=== PATIENT | female | born 1940 | race Caucasian/White ===

== ENCOUNTER 2019-04-24 11:48 | Outpatient (CLI) | payer MEDICARE, SELFPAY ==
[2019-04-24 12:23] LABS: Hemoglobin 11.5 g/dL (12.0-15.0); Mean Corpuscular HGB Conc 32.9 g/dl (32-36); Mean Corpuscular Hemoglobin 31.5 pg (26-34); Mean Corpuscular Volume 95.9 fl (80-100); Mean Platelet Volume 8.7 fl (7.4-10.4); Platelet Count Result 244 k/mm3 (150-375); Red Blood Count 3.65 M/mm3 (4.2-5.4); Red Cell Distribution Width 13.8 % (11.5-14.5); White Blood Count 9.2 K/mm3 (4.5-10.0)
[2019-04-24 12:40] LABS: Alanine Aminotransferase 19 U/L (4-35); Albumin Level 4.2 g/dL (3.5-5.1); Alkaline Phosphatase 94 U/L (38-126); Aspartate Amino Transferase 26 U/L (14-36); Bilirubin,Total 0.3 mg/dL (0.2-1.3); Estimated Glomerular Filt Rate > 60
== END 2019-04-24 11:49 | disposition home or self-care (01) ==
PROVIDERS: PCP Emergency Medicine
DX: M05.79 Rheumatoid arthritis with rheumatoid factor of multiple sites without organ or systems involvement (principal); M05.9 Rheumatoid arthritis with rheumatoid factor, unspecified; M25.569 Pain in unspecified knee; Z79.899 Other long term (current) drug therapy; L65.8 Other specified nonscarring hair loss; M81.0 Age-related osteoporosis without current pathological fracture
CPT/HCPCS: 36415; 80076; 82565; 85027

== ENCOUNTER 2019-09-14 10:33 | Outpatient (CLI) | payer MEDICARE, SELFPAY ==
[2019-09-14 10:54] LABS: Hematocrit 34.2 % (37.0-47.0); Hemoglobin 11.4 g/dL (12.0-15.0); Mean Corpuscular HGB Conc 33.3 g/dl (32-36); Mean Corpuscular Hemoglobin 31.4 pg (26-34); Mean Corpuscular Volume 94.2 fl (80-100); Mean Platelet Volume 8.4 fl (7.4-10.4); Platelet Count Result 236 k/mm3 (150-375); Red Blood Count 3.63 M/mm3 (4.2-5.4); Red Cell Distribution Width 14.3 % (11.5-14.5); White Blood Count 7.8 K/mm3 (4.5-10.0)
[2019-09-14 11:06] LABS: Alanine Aminotransferase 16 U/L (4-35); Alkaline Phosphatase 97 U/L (38-126); Aspartate Amino Transferase 22 U/L (14-36); Bilirubin,Total 0.4 mg/dL (0.2-1.3); Estimated Glomerular Filt Rate 60
== END 2019-09-14 10:34 | disposition home or self-care (01) ==
PROVIDERS: PCP Emergency Medicine
DX: M05.79 Rheumatoid arthritis with rheumatoid factor of multiple sites without organ or systems involvement (principal); M05.9 Rheumatoid arthritis with rheumatoid factor, unspecified; M25.569 Pain in unspecified knee; Z79.899 Other long term (current) drug therapy; L65.8 Other specified nonscarring hair loss; M81.0 Age-related osteoporosis without current pathological fracture
CPT/HCPCS: 36415; 80076; 82565; 85027

== ENCOUNTER → 2020-01-28 12:15 | Outpatient (CLI) | payer MEDICARE, SELFPAY ==
--- NOTE | ~2020-01-28 | XR_ITS ---
EXAMINATION: XR foot LT 2V EXAM DATE: 01/28/2020 13:05 INDICATION: Pain in left foot . TECHNIQUE: Frontal and lateral projections of the left foot. There is no prior study for comparison . FINDINGS: Bones are osteopenic. Please note that osteopenia limits sensitivity for detecting fractu res by radiographs. There are no acute fractures or dislocations identified. There is no subcutaneou s gas. There are arterial calcifications, arteriosclerosis. There are no radiopaque foreign bodies . Joint spaces are maintained. There are no bony erosions identified. IMPRESSION: Osteopenia. No acute findings. Reviewed, dictated and finalized at location B. MER SORTER
== END ==
PROVIDERS: Visit Provider Nurse Practitioner Family
DX: M85.872 Other specified disorders of bone density and structure, left ankle and foot (principal)
CPT/HCPCS: 73620

== ENCOUNTER 2020-04-06 10:34 | Outpatient (CLI) | payer MEDICARE, SELFPAY ==
[2020-04-06 11:53] LABS: Alanine Aminotransferase 13 U/L (4-35); Albumin Level 3.8 g/dL (3.5-5.1); Alkaline Phosphatase 96 U/L (38-126); Anion Gap 7 mmol/L (8-16); Aspartate Amino Transferase 24 U/L (14-36); Bilirubin,Total 0.6 mg/dL (0.2-1.3); Blood Urea Nitrogen 12 mg/dL (7-17); Carbon Dioxide 29 mmol/L (22-30); Chloride 99 mmol/L (98-107); Cholesterol 175 mg/dL (0-200); Estimated Glomerular Filt Rate > 60; Glucose 92 mg/dL (65-105); HDL Direct 52 mg/dL; Potassium 4.1 mmol/L (3.4-5.0); Sodium 135 mmol/L (137-145); Triglycerides 113 mg/dL (<150)
[2020-04-06 12:04] LABS: LDL Cholesterol Direct 85 mg/dL
[2020-04-09 14:05] LABS: Vitamin D 1,25 (OH)2 Total 55 pg/mL (18-72); Vitamin D2 1,25 (OH)2 <8 pg/mL; Vitamin D3 1,25 (OH)2 55 pg/mL
== END 2020-04-06 10:35 | disposition home or self-care (01) ==
PROVIDERS: PCP Emergency Medicine; Visit Provider Emergency Medicine
DX: E78.5 Hyperlipidemia, unspecified (principal); E55.9 Vitamin D deficiency, unspecified
CPT/HCPCS: 36415; 80053; 80061; 82652

== ENCOUNTER 2020-07-05 11:08 | Outpatient (CLI) | payer MEDICARE, SELFPAY ==
[2020-07-05 12:18] LABS: Alanine Aminotransferase 11 U/L (4-35); Alkaline Phosphatase 97 U/L (38-126); Anion Gap 2 mmol/L (8-16); Aspartate Amino Transferase 22 U/L (14-36); Bilirubin,Total 0.4 mg/dL (0.2-1.3); Blood Urea Nitrogen 13 mg/dL (7-17); Calcium 9.8 mg/dL (8.4-10.2); Carbon Dioxide 31 mmol/L (22-30); Chloride 100 mmol/L (98-107); Cholesterol 198 mg/dL (0-200); Estimated Glomerular Filt Rate > 60; Glucose 90 mg/dL (65-105); HDL Direct 62 mg/dL; Sodium 133 mmol/L (137-145); Triglycerides 97 mg/dL (<150)
[2020-07-05 12:29] LABS: LDL Cholesterol Direct 94 mg/dL
[2020-07-08 22:29] LABS: Vitamin D 1,25 (OH)2 Total 36 pg/mL (18-72); Vitamin D2 1,25 (OH)2 <8 pg/mL; Vitamin D3 1,25 (OH)2 36 pg/mL
== END 2020-07-05 11:09 | disposition home or self-care (01) ==
PROVIDERS: PCP Emergency Medicine; Visit Provider Emergency Medicine
DX: E55.9 Vitamin D deficiency, unspecified (principal); E78.5 Hyperlipidemia, unspecified
CPT/HCPCS: 36415; 80053; 80061; 82652

== ENCOUNTER 2020-12-19 13:14 | Inpatient (IN) | payer MEDICARE, SELFPAY ==
[2020-12-19] VITALS (42 sets, daily range): BP systolic 114–146; BP diastolic 70–101; PULSE 93–136; RESP 9–31; TEMP 36.3–36.6; O2SAT 95–97
--- NOTE | ~2020-12-19 | XR_ITS ---
EXAMINATION: XR chest 2V EXAM DATE: 12/19/2020 14:25 INDICATION: Leg swelling. TECHNIQUE: Frontal and lateral projections of the chest obtained and reviewed. Comparison is made to prior examination from 07/14/2015. FINDINGS: There is moderate cardiomegaly. There are small to moderate bilateral subpulmonic pleural effusions with adjacent atelectasis. There is indistinct reticulation with a bibasal predominance whi ch may indicate pulmonary edema. No pneumothorax or confluent consolidation suspected. There are bony degenerative changes. Thoracolumbar vertebral plasties and multiple thoracic compression fractures, probably old. IMPRESSION: 1. Findings consistent with CHF exacerbation. Reviewed, dictated and finalized at location A.
--- NOTE | 2020-12-19 14:06 | ECG_ITS ---
Measurements Intervals [place] Rate: 119 P: [place]: 0 QRS: -46 QRSD: 114 T: 135 QT: 296 QTc: 417 Interpretive Statements ATRIAL FIBRILLATION WITH RAPID VENTRICULAR RESPONSE LEFT ANTERIOR FASCICULAR BLOCK ST-T WAVE ABNORMALITY IN HIGH LATERAL LEADS- CONSIDER ISCHEMIA BASELINE ARTIFACT- I, AVR, AVL, V6 ABNORMAL ECG Electronically Signed On 12-19-2020 14:21:37 CDT by Tello Harris D.O.
[2020-12-19 14:39] LABS: Anion Gap 9 mmol/L (8-16); Blood Urea Nitrogen 13 mg/dL (7-17); Calcium 9.3 mg/dL (8.4-10.2); Carbon Dioxide 23 mmol/L (22-30); Chloride 93 mmol/L (98-107); Estimated CRCL calculation 46 ml/min; Estimated Glomerular Filt Rate > 60; Glucose 112 mg/dL (65-110); Potassium 4.6 mmol/L (3.4-5.0); Sodium 125 mmol/L (137-145)
[2020-12-19 14:45] LABS: Basophils Percent Auto 0.3 % (0.2-1.2); Eosinophils Absolute Auto 0.1 K/mm3 (0-0.3); Eosinophils Percent Auto 0.6 % (0-4.4); Hematocrit 30.8 % (37.0-47.0); Hemoglobin 10.4 g/dL (12.0-15.0); Immature Granulocyte Absolute 0.06 K/mm3 (0.00-0.031); Immature Granulocyte Percent A 0.6 % (0-0.5); Lymphocytes Absolute Auto 0.66 K/mm3 (0.9-3.2); Lymphocytes Percent Auto 6.9 % (18.3-44.2); Mean Corpuscular HGB Conc 33.8 g/dl (32-36); Mean Corpuscular Hemoglobin 30.5 pg (26-34); Mean Corpuscular Volume 90.3 fl (80-100); Mean Platelet Volume 8.8 fl (7.4-10.4); Monocytes Absolute Auto 0.7 K/mm3 (0.1-0.6); Monocytes Percent Auto 7.2 % (2.6-8.5); Neutrophils Percent Auto 84.4 % (45.5-73.1); Platelet Count Result 273 k/mm3 (150-375); Red Blood Count 3.41 M/mm3 (4.2-5.4); White Blood Count 9.5 K/mm3 (4.5-10.0)
[2020-12-19 14:51] LABS: NT Pro B Type Natriuretic Pept 3990 pg/mL (5-100); Troponin I 0.013 ng/mL (0.000-0.034)
[2020-12-19 14:54] LABS: Prothrombin Time 13.5 Seconds (11.1-14.7)
[2020-12-19 14:55] LABS: Partial Thromboplastin Time 33.2 SECONDS (22.3-36.8)
--- NOTE | 2020-12-19 15:54 | PC.NURSE ---
Erica, daughter, update on patient per phone.
--- NOTE | 2020-12-19 16:03 | ED.GENADULT ---
HPI - General Adult General Chief complaint: Extremity Injury, Lower Stated complaint: fluid coming out of legs Time Seen by Provider: 12/19/20 16:02 Source: patient Mode of arrival: ambulatory Limitations: no limitations History of Present Illness HPI narrative: Patient is here to be evaluated for swelling of her feet with some oozing. She states this is been happening for several days now. She has no other complaints. Onset (ago): day(s) Related Data Home Medications Medication Instructions Recorded Confirmed metoprolol succinate 25 mg 25 mg PO DAILY 12/25/19 04/12/20 tablet,extended release 24 hr naloxone 4 mg/actuation nasal spray 4 mg INTRANASAL Q2M 10/21/20 oxycodone-acetaminophen 10 mg-325 1 tablet PO Q8H PRN 10/21/20 mg tablet Allergies Allergy/AdvReac Type Severity Reaction Status Date / Time Penicillins Allergy Unknown Unknown Verified 12/19/20 15:22 Review of Systems Review of Systems: All systems reviewed & are unremarkable except as noted in HPI and below [facility] Past Medical History Medical History (Updated 12/19/20 @ 20:02 by Kym Castillo PA-C) Afib HTN (hypertension) Osteoporosis Rheumatoid arteritis Social History Social History Smoking status: Never smoker Alcohol intake: never Exam Const: General: no acute distress and alert Orientation/consciousness: patient oriented x3 HENMT: Head: normal to inspection Eyes: Pupils: Equal, round and reactive pupils present Resp: Effort & Inspection: normal respiratory effort Auscultation: rales bilateral at the base Cardio: Rate: tachycardic Rhythm: abnormal rhythm irregularly irregular GI: GI Palp: Yes Soft to palpation : General: Yes no CVA tenderness Skin: General skin exam: normal color Neuro: General: patient oriented x3 and moves all extremities Extrem: General: edema (feet, 1+) bilateral Psych: Mental Status: mental status grossly normal Course Course Emergency Course: EKG shows AF w/RVR. Review of medical record shows the patient had a similar episode in July after suffering a pelvic fracture. Required cardioversion. The patient doesn't recall that episode. Discussed with Dr. Dye. will give Diltiazem bolus, lasix and lovenox. Call out to patients germination worker, Dr. Jensen. Will admit for conversion and observation. Vital Signs Vital signs: Vital Signs Temperature 36.3 C L 12/19/20 14:06 Pulse Rate 132 H 12/19/20 14:06 Respiratory Rate 18 12/19/20 14:06 Blood Pressure 141/94 H 12/19/20 14:06 Pulse Oximetry 97 12/19/20 14:06 Temperature 36.3 C L 12/19/20 14:06 Pulse Rate 100 12/19/20 19:46 Respiratory Rate 20 12/19/20 19:46 Blood Pressure 114/70 12/19/20 19:45 Pulse Oximetry 95 12/19/20 19:46 Medical Decision Making Vital Signs Vital Signs: Vital Signs Temperature 36.3 C L 12/19/20 14:06 Pulse Rate 132 H 12/19/20 14:06 Respiratory Rate 18 12/19/20 14:06 Blood Pressure 141/94 H 12/19/20 14:06 Pulse Oximetry 97 12/19/20 14:06 Temperature 36.3 C L 12/19/20 14:06 Pulse Rate 100 12/19/20 19:46 Respiratory Rate 20 12/19/20 19:46 Blood Pressure 114/70 12/19/20 19:45 Pulse Oximetry 95 12/19/20 19:46 Lab Data Result diagrams: 12/19/20 14:13 12/19/20 14:13 Labs: Lab Results 12/19/20 12/19/20 12/19/20 Range/Units 14:13 14:13 14:13 WBC 9.5 (4.5-10.0) K/mm3 RBC 3.41 L (4.2-5.4) M/mm3 Hgb 10.4 L (12.0-15.0) g/dL Hct 30.8 L (37.0-47.0) % MCV 90.3 (80-100) fl MCH 30.5 (26-34) pg MCHC 33.8 (32-36) g/dl RDW 15.0 H (11.5-14.5) % Plt Count 273 (150-375) k/mm3 MPV 8.8 (7.4-10.4) fl Immature Gran % (Auto) 0.6 H (0-0.5) % Neut % (Auto) 84.4 H (45.5-73.1) % Lymph % (Auto) 6.9 L (18.3-44.2) % [place] % (Auto) 7.2 (2.6-8.5) % Eos % (Auto) 0.6 (0-4.4) % Baso % (Auto) 0.3 (0.2-1.
[2020-12-19] MEDS: ENOXAPARIN 80 MG/0.8 ML SYRINGE 70 MG SUB-Q (17:52)
[2020-12-19] MEDS: FUROSEMIDE INJ 40 MG/4 ML VIAL IV PUSH (17:53)
[2020-12-19] MEDS: oxyCODONE/ACETAMINOPHEN (*CRX) 5-325 MG TABLET 1 TABLET PO (18:03)
--- NOTE | 2020-12-19 18:09 | PC.NURSE ---
No need for cardizem push per GRANITE CUTTER. Starting drip per protocol at this time.
--- NOTE | 2020-12-19 20:17 | PM.IMHP ---
H&P: HPI History of Present Illness Date/Time: 12/19/20 20:17 Chief Complaint: Leg swelling Narrative: 80-year-old female with past medical history of moderate pulmonary hypertension, mitral valve prolapse, paroxysmal atrial fibrillation and rheumatoid arthritis with chronic pain syndrome who presented to the ER via private vehicle due to lower extremity swelling. Source of information is past medical records and patient report. Patient is only a poor to fair historian. The patient reports that she has been having bilateral lower extremity swelling with some weeping from 1 of her lower extremities. She denies any chest pain or shortness of breath. She has not had any cough or congestion. In the ER she was found to be in AFib RVR and had actually denied having history of AFib. However review of records demonstrated patient had AFib far back as 2015. During her prior hospitalizations she had also been asymptomatic with her AFib. She follows with Dr. Jensen as outpatient. She denies any dyspnea on exertion but is mostly inactive at baseline due to chronic pain from rheumatoid arthritis. She reports severe pain in her hips, back and knees. She reports that all of her joints hurt. She has not had any nausea or vomiting. She denies any recent constipation but admits she does take laxatives nightly. She denies any recent falls, hematochezia or melena. She does report urinary frequency NS to get up 3 times a night to urinate. She has tried to urinate multiple times while here at the hospital but has only been urinating small amounts. Bladder scan demonstrated over 600 mL and postvoid residual. Review of Systems Review of Systems: 12 systems were reviewed with pertinent positives and negatives per HPI. Except as documented in the HPI, all other systems were reviewed and are negative. [facility] Past Medical History Medical History (Updated 12/20/20 @ 02:19 by Sisi Thompson DO) Chronic pain Essential hypertension Mitral valve regurgitation Moderate pulmonary hypertension Osteoporosis Paroxysmal atrial fibrillation (06/2015) Rheumatoid arteritis Spinal stenosis Vitamin D deficiency disease Surgical History Surgical History (Updated 12/19/20 @ 20:18 by Sisi Thompson DO) Atrial fibrillation status post cardioversion (06/2015) Family History Family History Sibling Hypertension Diabetes mellitus Sibling Lung cancer Sibling Esophageal cancer Sibling Colon cancer Social History Social History (Updated 12/20/20 @ 02:09 by Sisi Thompson DO) Social History: She has been since January 2020. She lives alone. She has 2 children who live nearby. 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 She ambulates with a walker. She used to occasionally drink a couple of beers a week but has not done so in many years. She is a lifelong nonsmoker. Primary care physician: Dr. Celio Calle Code status: Full code per EMR. However, the patient reports that she does not think she would want cardiac resuscitation or intubation but she needs to discuss this with her son and daughter. Smoking status: Never smoker Alcohol intake: former Drinks per week: 2 Substance use: never Spiritual care concerns: No Meds Home Medications and Allergies Home Medications Medication Instructions Recorded Confirmed Type metoprolol succinate 25 mg 25 mg PO DAILY 12/25/19 12/19/20 History tablet,extended release 24 hr oxycodone-acetaminophen 10 mg-325 1 tablet PO Q8H PRN 10/21/20 12/19/20 History mg tablet folic acid 1 mg tablet 1 mg PO BID #180 tablet 11/16/20 12/19/20 Rx prednisone 2.5 mg tablet 2.5 mg PO TID #270 tablet 11/18/20 12/19/20 Rx Adult Aspirin 325 tablet BYMOUTH DAILY 12/19/20 12/19/20 History Calcitrate-Vitamin D 2,000 caplet BYMOUTH DAILY 12/19/20 12/19/20 History amlodipine
--- NOTE | 2020-12-19 22:08 | ADMGEN ---
This patient, Lesley Levy, was admitted to IMU Room 232-01. Patient/family oriented to hospital policies and general routines including ID bracelet, bed and alarms, visiting hours, pain management, procedures, bathroom and other care routines, personal items, smoking policy, room service/diet, and visiting hours. Information on how to activate the Rapid Response Team has been discussed. Patient/Family are encouraged to report perceived risks to care and to ask questions if they do not understand what they are told or what they should do.
[2020-12-19] MEDS: HYDROcodone/acetaminophen (*CRX) 5-325 MG TABLET 2 TAB PO (23:00)
[2020-12-20] VITALS (20 sets, daily range): BP systolic 97–128; BP diastolic 52–93; PULSE 65–137; RESP 16–22; TEMP 36.2–37.2; O2SAT 95–99
--- NOTE | 2020-12-20 | ECHO_ITS ---
Patient Info Name: Lesley Levy Age: 80 years : 1940 Gender: Female Ht: 67 in Wt: 146 lbs BSA: 1.77 m2 HR: 104 bpm BP: 128 / 93 mmHg Heart Rhythm: Atrial Fibrillation Technical Quality: Good Exam Date: 12/20/2020 10:39 AM Exam Location: [facility] Patient Status: Inpatient Admit Date: 12/19/2020 Staff Ordering Physician: Sisi Thompson DO Pipe Bender: Stefany Peña RDCS Attending Provider: Emily Huston PA-C Referring Physician: Jay ROGERS; Exam Type: CA echo doppler color flow Study Info Indications I50.9 - Heart failure, unspecified Complete two-dimensional, color flow and Doppler transthoracic echocardiogram is performed. Summary 1. Complete two-dimensional, color flow and Doppler transthoracic echocardiogram is performed. 2. Left ventricular chamber size, wall thickness, systolic function are normal with no regional wall motion abnormalities with an estimated ejection fraction of 55-60%. Diastolic function could not be assessed. 3. Left atrial chamber dimension is severely enlarged. 4. Right atrial chamber dimension is mildly enlarged. 5. There is mild aortic valve calcification without stenosis. 6. There is mild mitral valve regurgitation. 7. There is moderate tricuspid valve regurgitation. 8. No pulmonary hypertension, estimated pulmonary arterial systolic pressure is 31 mmHg. 9. Atrial fibrillation. Left Ventricle Left ventricular chamber dimension is normal. Left ventricular systolic function is normal, estimated at 55-60%. There is no increased left ventricular wall thickness. Left ventricular septal wall motion is normal. The left ventricular diastolic function is indeterminate. Left ventricular chamber size, wall thickness, systolic function are normal with no regional wall motion abnormalities with an estimated ejection fraction of 55-60%. Diastolic function could not be assessed. Right Ventricle Right ventricular chamber dimension is normal. Right ventricular systolic function is normal. Left Atria Left atrial chamber dimension is severely enlarged. Right Atria Right atrial chamber dimension is mildly enlarged. Aortic Valve The aortic valve is trileaflet. There is no aortic valve sclerosis. There is no aortic valve stenosis. There is mild aortic valve regurgitation. There is mild aortic valve calcification without stenosis. Pulmonic Valve The pulmonic valve is normal. There is no pulmonic valve stenosis. There is no pulmonic regurgitation. Mitral Valve The mitral valve has normal leaflets. There is no mitral valve stenosis. There is mild mitral valve regurgitation. The mitral valve annulus is moderately calcified. Tricuspid Valve The tricuspid valve leaflets are normal. There is no significant tricuspid valve stenosis. There is moderate tricuspid valve regurgitation. No pulmonary hypertension, estimated pulmonary arterial systolic pressure is 31 mmHg. Pericardium/Pleural The pericardium appears normal. There is no pericardial effusion. Inferior Vena Cava Normal inferior vena cava with >50% collapse upon inspiration consistent with Empty right atrial pressure, 10 mmHg. Aorta The aortic root size at the sinus of Valsalva is normal. The prox ascending aorta size is normal. Tricuspid Valve Name Value Normal
[2020-12-20] MEDS: ENOXAPARIN 80 MG/0.8 ML SYRINGE 65 MG SUB-Q (05:49)
[2020-12-20] MEDS: HYDROcodone/acetaminophen (*CRX) 5-325 MG TABLET 2 TAB PO ×2 (05:54→23:30)
[2020-12-20] MEDS: ASPIRIN 325 MG TABLET PO (08:37)
[2020-12-20] MEDS: amLODIPine BESYLATE 5 MG TABLET 10 MG PO (08:37)
[2020-12-20] MEDS: predniSONE 2.5 MG TABLET PO ×3 (08:38→17:24)
[2020-12-20] MEDS: FOLIC ACID 1 MG TABLET PO ×2 (08:38→17:24)
[2020-12-20] MEDS: FUROSEMIDE INJ 40 MG/4 ML VIAL IV PUSH ×2 (08:38→17:24)
[2020-12-20] MEDS: lisinopriL 20 MG TABLET 40 MG PO (08:38)
[2020-12-20] MEDS: METOPROLOL SUCCINATE EXT REL 25 MG TABCR PO (08:38)
[2020-12-20 08:40] LABS: Hematocrit 31.9 % (37.0-47.0); Hemoglobin 10.6 g/dL (12.0-15.0)
[2020-12-20 09:02] LABS: Anion Gap 8 mmol/L (8-16); Blood Urea Nitrogen 10 mg/dL (7-17); Calcium 8.8 mg/dL (8.4-10.2); Carbon Dioxide 28 mmol/L (22-30); Chloride 95 mmol/L (98-107); Estimated CRCL calculation 60 ml/min; Estimated Glomerular Filt Rate > 60; Glucose 90 mg/dL (65-110); Magnesium 1.6 mg/dL (1.6-2.3); Potassium 3.6 mmol/L (3.4-5.0); Sodium 131 mmol/L (137-145)
[2020-12-20 09:13] LABS: Troponin I 0.028 ng/mL (0.000-0.034)
[2020-12-20] MEDS: CHOLECALCIFEROL 1,000 UNITS TABLET 2000 UNITS PO (12:14)
[2020-12-20] MEDS: oxyCODONE HCL (*CRX) 5 MG TAB IR PO ×2 (12:14→18:45)
--- NOTE | 2020-12-20 16:05 | PM.CNCAR ---
Assessment and Plan Assessment and plan (1) Atrial fibrillation with RVR: Code(s): I48.91 - Unspecified atrial fibrillation <MICHAEL Mireles - Last Filed: 12/20/20 18:26> Status: Acute <MICHAEL Mireles - Last Filed: 12/20/20 18:26> Assessment and Plan: History of paroxysmal atrial fibrillation. Was previously electrically cardioverted and maintained on amiodarone. She was also on Xarelto for systemic anticoagulation. Amiodarone and Xarelto had since been stopped since she remained in sinus rhythm. She is now back in atrial fibrillation with rapid ventricular response. She was placed on a diltiazem drip which for the most part is providing adequate rate control though she does have some bursts of tachycardia. She is completely asymptomatic with this. She denies any symptoms that would create suspicion that she was back in atrial fibrillation. Will discontinue diltiazem. Increase metoprolol to 50 mg b.i.d (switch from succinate to tartrate to allow for titrating dose more easily). CHADSVASc score is 4. Systemic anticoagulation is indicated. Will initiate Xarelto 20mg daily Discontinue aspirin Continue to monitor on telemetry Echo pending <MICHAEL Mireles - Last Filed: 12/20/20 18:26> (2) CHF (congestive heart failure): Qualifiers: Heart failure chronicity: acute on chronic Heart failure type: unspecified Qualified Code(s): I50.9 - Heart failure, unspecified <MICHAEL Mireles - Last Filed: 12/20/20 18:26> Code(s): I50.9 - Heart failure, unspecified <MICHAEL Mireles - Last Filed: 12/20/20 18:26> Status: Acute <MICHAEL Mireles - Last Filed: 12/20/20 18:26> Assessment and Plan: No known history of heart failure. Lower extremity swelling could be secondary to the atrial fibrillation with RVR. She does not have any other clinical signs of decompensated heart failure at this time. She has diuresed well with furosemide IV 40 mg b.i.d. Will shift her to oral furosemide 40mg p.o. b.i.d Echocardiogram has been ordered. Further recommendations to follow based on echocardiogram findings <MICHAEL Mireles - Last Filed: 12/20/20 18:26> (3) HTN (hypertension): Code(s): I10 - Essential (primary) hypertension <MICHAEL Mireles - Last Filed: 12/20/20 18:26> Status: Acute <MICHAEL Mireles - Last Filed: 12/20/20 18:26> Assessment and Plan: Currently at goal. <MICHAEL Mireles - Last Filed: 12/20/20 18:26> Additional Plan Addendum: Patient seen, chart reviewed. Patient with 1 prior episode of atrial fibrillation returns with edema and AFib RVR and mild CHF. No chest pain, palpitations or shortness of breath, though fairly sedentary and walks w/ a walker. EXam shows HR now in 80's most of the time, a few rales in RLL, and LE edema which is improving. EKG personally reviewed, AFib rate 114, left axis deviation, poor R-wave progression. Chest x-ray which was also personally reviewed shows some mild CHF. ProBNP was 4000. Agree with SPOON MAKER Yasmeen Avina's assessment and plan for rate control and anticoagulation, increasing metoprolol, and diuresis. Echo tmr. Discussed w/ pt. Pj Hawley MD <Dominga Hawley MD - Last Filed: 12/20/20 21:17> History of Present Illness History of Present Illness Consult date/time: 12/20/20 16:05 <MICHAEL Mireles - Last Filed: 12/20/20 18:26> Requesting physician: Sisi Thompson DO <MICHAEL Mireles - Last Filed: 12/20/20 18:26> Consult reason: atrial fibrillation <MICHAEL Mireles - Last Filed: 12/20/20 18:26> Reason For Visit: AF W/RVR, CHF <MICHAEL Mireles - Last Filed: 12/20/20 18:26> Narrative: Ms. Mildred is a patient I am seeing at the request of Dr. Thompson for atrial fibrillation with rapid ventricular response. This is an 80-year-old female past medical history of
--- NOTE | 2020-12-20 16:54 | PM.IMPN ---
Progress Note: A&P Assessment and Plan (1) Atrial fibrillation with RVR: Code(s): I48.91 - Unspecified atrial fibrillation Status: Acute Assessment and Plan: Patient is currently on a Cardizem drip but will be transition to metoprolol orally according to Cardiology -will continue therapeutic Lovenox until she sees PT to see how she does. She says she usually walks with a walker at home -patient states she has never had a history of atrial fibrillation although records do indicate that she has -await echo -cardiology has been consulted and I appreciate their recommendations (2) CHF (congestive heart failure): Qualifiers: Heart failure chronicity: acute on chronic Heart failure type: unspecified Qualified Code(s): I50.9 - Heart failure, unspecified Code(s): I50.9 - Heart failure, unspecified Status: Acute Assessment and Plan: Unknown type. Acute CHF exacerbation likely secondary to high-output failure. -await echo (3) Urinary retention with incomplete bladder emptying: Code(s): R33.9 - Retention of urine, unspecified Status: Acute Assessment and Plan: Despite having significant urinary frequency the patient was still retaining 600 mL of urine after attempting to void. -Lang catheter has been placed. Will continue with this and possibly try a voiding trial tomorrow (4) Chronic pain: Qualifiers: Chronic pain type: chronic pain syndrome Qualified Code(s): G89.4 - Chronic pain syndrome Code(s): G89.29 - Other chronic pain Status: Acute Assessment and Plan: Chronic pain due to rheumatoid arthritis -continue home prednisone Time Spent With Patient Time with patient: 25 - 35 minutes Subjective Date/time seen: 12/20/20 16:54 Interval history: Pt is a 80-year-old female here for AFib. Patient was seen today and is very happy with her results. She said that her legs are no longer swollen and she is feeling better. She wants to get out of the bed for dinner. She has no pain. Pt denies nausea, vomiting, fevers, chills, constipation, diarrhea, chest pain, sob, or abdominal pain. Review of Systems Review of Systems: All systems reviewed & are unremarkable except as noted in HPI and below Exam Narrative: General: Well developed well nourished patient in NAD HEENT: normocephalic Neck: supple Neuro: Alert and oriented x4 CV: Irregularly irregular. Telemetry shows intermittent atrial fibrillation with RVR. Current rate on exam was 84 Resp:CTA Abd: Soft, non distended. No pain to palpation. Positive bowel sounds Extremities: No swelling to lower extremities which is an improvement. Some chronic discoloration. No pain to palpation Objective Data Vital Signs Vital Signs: Vital Signs - 24 hr 12/19/20 17:00 12/19/20 17:15 12/19/20 17:30 Temperature Pulse Rate 132 H 120 H 122 H Respiratory Rate 17 11 L 15 Blood Pressure Pulse Oximetry 12/19/20 17:45 12/19/20 18:00 12/19/20 18:06 Temperature Pulse Rate 126 H 93 130 H Respiratory Rate 31 H 17 Blood Pressure 128/94 H Pulse Oximetry 12/19/20 18:07 12/19/20 18:15 12/19/20 18:16 Temperature Pulse Rate 114 H 134 H 134 H Respiratory Rate 15 13 22 H Blood Pressure 128/94 H Pulse Oximetry 12/19/20 18:23 12/19/20 18:30 12/19/20 18:31 Temperature Pulse Rate 132 H 129 H 133 H Respiratory Rate 19 16 17 Blood Pressure 127/87 146/94 H Pulse Oximetry 95 12/19/20 18:45 12/19/20 18:46 12/19/20 19:00 Temperature Pulse Rate 125 H 115 H 136 H Respiratory Rate 18 14 19 Blood Pressure 125/101 H Pulse Oximetry 12/19/20 19:01 12/19/20 19:15 12/19/20 19:16 Temperature Pulse Rate 126 H 102 H 135 H Respiratory Rate 20 15 16 Blood Pressure Pulse Oximetry 12/19/20 19:30 12/19/20 19:45 12/19/20 19:46 Temperature Pulse Rate 110 H 94 100 Respiratory Rate 14 20 Blood Pressur
[2020-12-20] MEDS: RIVAROXABAN 20 MG TABLET PO (18:45)
[2020-12-20] MEDS: METOPROLOL TARTRATE 50 MG TAB PO (20:53)
[2020-12-21] VITALS (14 sets, daily range): BP systolic 104–135; BP diastolic 67–82; PULSE 66–133; RESP 16–22; TEMP 36.1–36.4; O2SAT 92–100
[2020-12-21 05:51] LABS: Hematocrit 33.2 % (37.0-47.0); Hemoglobin 11.1 g/dL (12.0-15.0)
[2020-12-21 05:52] LABS: Anion Gap 5 mmol/L (8-16); Blood Urea Nitrogen 12 mg/dL (7-17); Calcium 8.9 mg/dL (8.4-10.2); Carbon Dioxide 30 mmol/L (22-30); Chloride 93 mmol/L (98-107); Estimated CRCL calculation 52 ml/min; Estimated Glomerular Filt Rate > 60; Glucose 94 mg/dL (65-110); Potassium 3.3 mmol/L (3.4-5.0); Sodium 128 mmol/L (137-145)
--- NOTE | 2020-12-21 08:27 | PM.IMPN ---
Progress Note: A&P Assessment and Plan (1) Hyponatremia: Code(s): E87.1 - Hypo-osmolality and hyponatremia Status: Acute Assessment and Plan: Patient's sodium dropped this morning to 128, could be due to Lasix -she appears euvolemic now in the Lasix has been placed on hold for the time being -her normal sodium is usually 133-135 -will recheck at noon and tomorrow and if it has improved she will likely discharge at that time (2) Atrial fibrillation with RVR: Code(s): I48.91 - Unspecified atrial fibrillation Status: Acute Assessment and Plan: Patient has been doing well on oral metoprolol although heart rate is now 130s -she has been transition to Xarelto, I have asked care coordination to san the medication -patient states she has never had a history of atrial fibrillation although records do indicate that she has and she sees cardiology for this -echo without systolic dysfunction -cardiology has been consulted and I appreciate their recommendations (3) CHF (congestive heart failure): Qualifiers: Heart failure chronicity: acute on chronic Heart failure type: unspecified Qualified Code(s): I50.9 - Heart failure, unspecified Code(s): I50.9 - Heart failure, unspecified Status: Acute Assessment and Plan: Acute CHF exacerbation likely secondary to high-output failure. -no systolic dysfunction, unable to estimate diastolic (4) Urinary retention with incomplete bladder emptying: Code(s): R33.9 - Retention of urine, unspecified Status: Acute Assessment and Plan: Despite having significant urinary frequency the patient was still retaining 600 mL of urine after attempting to void. -will go ahead with voiding trial -family reports this has happened in the past and she had to go home with a catheter before. (5) Chronic pain: Qualifiers: Chronic pain type: chronic pain syndrome Qualified Code(s): G89.4 - Chronic pain syndrome Code(s): G89.29 - Other chronic pain Status: Acute Assessment and Plan: Chronic pain due to rheumatoid arthritis -continue home prednisone Subjective Date/time seen: 12/21/20 08:27 Interval history: Pt is a 80-year-old female here for AFib. Patient was seen today and continues to feel well. She has not had any further swelling her lower extremities. Pt denies nausea, vomiting, fevers, chills, constipation, diarrhea, chest pain, sob, or abdominal pain. She says that she is unsure if she has ever been on anticoagulation but does not believe she has. She says she does not usually fall and gets around just fine. I called her daughter states that in the past she declined to have a blood thinner but she does well and is not a fall risk. Exam Narrative: General: Well developed well nourished patient in NAD HEENT: normocephalic Neck: supple Neuro: Alert and oriented x4 CV: Irregularly irregular. Telemetry shows intermittent atrial fibrillation with occasional RVR more controlled. Current rate on exam was 92 Resp:CTA Abd: Soft, non distended. No pain to palpation. Positive bowel sounds Extremities: No swelling to lower extremities which is an improvement. Some chronic discoloration. No pain to palpation Objective Data Vital Signs Vital Signs: Vital Signs - 24 hr 12/20/20 08:45 12/20/20 09:23 12/20/20 10:00 Temperature 97.4 F L Pulse Rate 65 78 Respiratory Rate 18 Blood Pressure 114/63 Pulse Oximetry 95 95 12/20/20 12:00 12/20/20 12:14 12/20/20 14:00 Temperature 98.3 F Pulse Rate 72 67 87 Respiratory Rate 22 H Blood Pressure 97/52 L Pulse Oximetry 97 12/20/20 16:00 12/20/20 16:52 12/20/20 18:00 Temperature 98.9 F Pulse Rate 80 107 H 92 Respiratory Rate 20 Blood Pressure 111/79 Pulse Oximetry 95 12/20/20 20:00 12/20/20 20:53 12/20/20 22:00 Temperature 97.7 F Pulse Rate 77 114 H 112 H Respiratory Rate
[2020-12-21] MEDS: POTASSIUM CHLORIDE 20 MEQ TABLET 40 MEQ PO (08:29)
[2020-12-21] MEDS: lisinopriL 20 MG TABLET 40 MG PO (08:30)
[2020-12-21] MEDS: amLODIPine BESYLATE 5 MG TABLET 10 MG PO (08:30)
[2020-12-21] MEDS: predniSONE 2.5 MG TABLET PO ×3 (08:31→17:05)
[2020-12-21] MEDS: CHOLECALCIFEROL 1,000 UNITS TABLET 2000 UNITS PO (08:32)
[2020-12-21] MEDS: METOPROLOL TARTRATE 50 MG TAB PO ×2 (08:32→21:23)
[2020-12-21] MEDS: FOLIC ACID 1 MG TABLET PO ×2 (08:32→17:05)
[2020-12-21] MEDS: oxyCODONE HCL (*CRX) 5 MG TAB IR PO (10:02)
[2020-12-21 12:25] LABS: Sodium 122 mmol/L (137-145)
[2020-12-21] MEDS: HYDROcodone/acetaminophen (*CRX) 5-325 MG TABLET 2 TAB PO ×2 (12:43→23:44)
--- NOTE | 2020-12-21 13:09 | ECG_ITS ---
Measurements Intervals [place] Rate: 129 P: -27 NC: 160 QRS: -51 QRSD: 126 T: 134 QT: 301 QTc: 441 Interpretive Statements ATRIAL FLUTTER/TACHYCARDIA WITH RAPID VENTRICULAR RESPONSE LEFT ANTERIOR FASCICULAR BLOCK ST-T WAVE ABNORMALITY IN HIGH LATERAL LEADS- CONSIDER ISCHEMIA ABNORMAL ECG Electronically Signed On 12-21-2020 20:13:03 CDT by Tello Harris D.O.
--- NOTE | 2020-12-21 13:36 | PCOTNOTE ---
Attempted OT evaluation, patient currently getting testing completed, will follow and attempt at later time.
[2020-12-21] MEDS: METOPROLOL TARTRATE INJ 5 MG/5 ML VIAL IV PUSH (13:46)
--- NOTE | 2020-12-21 16:10 | PM.PNCARD ---
Progress Note: A&P Assessment and Plan (1) Atrial fibrillation with RVR: Code(s): I48.91 - Unspecified atrial fibrillation Status: Acute Assessment and Plan: Admitted with atrial fibrillation now atrial flutter, back with rapid ventricular response Try Cardizem to 5 mg IV push Q2HR prn, and continue metoprolol 50 mg b.i.d.. Discontinue amlodipine to give us more room with her blood pressure to push her AFib meds Anticoagulated with Xarelto 20 mg daily; GFR greater than 50 mils per minute. (2) Acute diastolic CHF (congestive heart failure): Code(s): I50.31 - Acute diastolic (congestive) heart failure Status: Acute Assessment and Plan: Good diuresis, looks euvolemic. Diuretics discontinued. Normal left ventricular function by echo. Continued to control heart rate response and hypertension (3) Hyponatremia: Code(s): E87.1 - Hypo-osmolality and hyponatremia Status: Acute Assessment and Plan: Diuretics held. Daily BMP. Subjective Date/time seen: 12/21/20 16:10 Interval history: Follow-up for: Patient admitted with edema, found to have AFib RVR and diastolic CHF. Normally sees Dr. brown. Date of service 12/21/2020: Patient has gone into an atrial flutter rate 130s, has not responded to Lopressor 5 mg IV push. Currently also taking metoprolol tartrate 25 mg b.i.d. and Xarelto. Doesn't feel well, sat up too long and is sore and tired. No SOB. Diuresed 6600 cc this admission. Echo showed normal LV function as below. Hypokalemia and hyponatremia noted. Review of Systems Constitutional: Constitutional: Reports fatigue Eyes: Eyes: Reports no additional eye complaints ENT: Denies epistaxis Cardiovascular: Cardiovascular: Denies chest pain, Denies pedal edema, Denies leg edema and Denies lightheadedness Respiratory: Respiratory: Denies dyspnea and Denies dyspnea on exertion Gastrointestinal: Gastrointestinal: Denies abdominal pain Genitourinary: Genitourinary: Denies hematuria Musculoskeletal: Musculoskeletal: Reports back pain and Reports arthralgias Integumentary/Breasts: Skin/Breast: Reports system reviewed and no additional complaints, except as docu Neurologic: Reports system reviewed and no additional complaints, except as documented Psychiatric: Psychiatric: Reports no additional psychiatric complaints Exam Narrative: Just got back in bed, irritable Const: General: no acute distress and uncomfortable HENMT: Mouth: Yes moist mucous membranes Eyes: EOM: EOMs intact bilaterally Neck: Neck: supple Resp: Effort & Inspection: normal respiratory effort Auscultation: clear to auscultation bilaterally Cardio: Rate: tachycardic Rhythm: regular rhythm GI: GI Palp: Yes Soft to palpation Skin: General skin exam: No normal color Other: scaley skin LE, Neuro: Cognition (Neuro): abnormal cognition (decreased understanding) Speech: normal speech Extrem: General: no edema and no pedal edema Psych: Mental Status: mental status grossly normal Objective Data Vital Signs Vital Signs: Vital Signs - 24 hr 12/20/20 16:52 12/20/20 18:00 12/20/20 20:00 Temperature 98.9 F 97.7 F Pulse Rate 107 H 92 77 Respiratory Rate 20 16 Blood Pressure 111/79 121/78 Pulse Oximetry 95 99 12/20/20 20:53 12/20/20 22:00 12/20/20 23:25 Temperature 97.8 F Pulse Rate 114 H 112 H 76 Respiratory Rate 16 Blood Pressure 104/75 Pulse Oximetry 95 12/20/20 23:46 12/21/20 01:51 12/21/20 04:00 Temperature 97 F L Pulse Rate 84 74 68 Respiratory Rate 16 16 Blood Pressure 112/68 Pulse Oximetry 95 99 12/21/20 06:00 12/21/20 08:00 12/21/20 08:32 Temperature 97.6 F Pulse Rate 76 66 132 H Respiratory Rate 18 Blood Pressure 135/67 Pulse Oximetry 92 12/21/20 10:00 12/21/20 12:00 12/21/20 13:46 Temperature 97.1 F L Pulse Rate 133 H 92 130 H
--- NOTE | 2020-12-21 16:11 | PM.CNNEP ---
Assessment and Plan Assessment and plan (1) Hyponatremia: Code(s): E87.1 - Hypo-osmolality and hyponatremia Status: Acute Assessment and Plan: acute on chronic baseline sodium levels usually runs ~ 132 - 135 as far back as 2016 suspect chronic low sodium level due to chronic pain and need/use of narcotics acute hyponatremia presumably due mild CHF on admission worsened by diuresis/diuretic therapy check urine electrolytes tomorrow (but may be difficult to interpret with recent lasix use) check TSH and will check cortisol as well but already on chronic steroids check serum/urine osmolality, SPEP, UPEP, and kappa/lambda ratio agree with holding diuretics for now start fluid restriction -- would try to avoid 3% saline use given #3 goal of therapy is a rate of change of 4 - 6mmol/L (but not to exceed 8mmol/L) in 24 hours follow serial sodium levels (2) Atrial fibrillation with RVR: Code(s): I48.91 - Unspecified atrial fibrillation Status: Acute Assessment and Plan: continue rate control strategy on anticoagulation (3) Acute diastolic CHF (congestive heart failure): Code(s): I50.31 - Acute diastolic (congestive) heart failure Status: Acute Assessment and Plan: euvolemic following aggressive diuresis follow volume status since diuretic currently on hold (4) HTN (hypertension): Code(s): I10 - Essential (primary) hypertension Status: Chronic Assessment and Plan: reasonable control follow trend of hemodynamics Will continue to follow. History of Present Illness Reason for Consult Consult date: 12/21/20 Reason for consult: hyponatremia Chief Complaint Chief complaint: AF W/RVR, CHF History of Present Illness Narrative: The patient is an 80-year-old female with a past medical history as outlined below who presented to [facility] ER due to further assess evaluation of worsening lower extremity edema. The patient is not the best historian so a great deal the information I have obtained is from review of the electronic medical record as well as discussion with the physician/nurses involved in her care. She apparently has been having problems/issues with bilateral lower extremity edema for the last several days. Apparently, she also has noted some weeping from 1 of her lower extremities thought to be secondary to the edema. She gave no reported complaints of chest pain or shortness of breath either. However, due to the persistence of the lower extremity edema and the appearance that was worsening, she presented to the ER for further evaluation Workup and evaluation emergency room demonstrated evidence of the aforementioned lower extremity edema but was found to be in atrial fibrillation with a rapid ventricular rate. Further testing indicated that she also had evidence of mild volume overload /CHF as well. Given the patient's advanced age, complex medical history, as well as her AFib with RVR and congestive heart failure, she was admitted the hospital for further evaluation and therapy. Since her admission, rate control strategy has been implemented to try and keep her AFib under control and she was aggressively IV did diuresed with IV diuretics for her heart failure. Her volume status now appears to be under very well good control as she is almost 3-4 L negative following diuresis. However, labs done today both in the a.m. and around noon have demonstrated worsening hyponatremia. Renal consultation was requested due to her acute on chronic hyponatremia. The patient's baseline sodium level normally runs around 132 - 135 millimoles per L from review of her records and this dates back to as far as 2017. Suspicion for her chronic hyponatremia probably is secondary to her chronic pain issues secondary to her rheumatoid arthritis coupled with the use of narcotics to keep her pain controlled. On admission, her sodium was 125 but then aura
[2020-12-21] MEDS: dilTIAZem HCl INJ 25 MG/5 ML VIAL 5 MG IV PUSH ×2 (17:04→21:11)
[2020-12-21] MEDS: RIVAROXABAN 20 MG TABLET PO (17:06)
[2020-12-21 18:12] LABS: Sodium 117 mmol/L (137-145)
[2020-12-21] MEDS: oxyCODONE/ACETAMINOPHEN (*CRX) 5-325 MG TABLET 1 TABLET PO (18:53)
[2020-12-21 18:54] LABS: Creatinine Urine 49.8 mg/dL; Creatinine Urine 50.5 mg/dL; Total Protein Urine Random 39 mg/dL; Ur Ttl Prot Creatinine Ratio 0.77 mg/mg (0-0.20)
[2020-12-21 19:29] LABS: Sodium Urine Random 19 meq/L
[2020-12-21 22:15] LABS: Sodium 119 mmol/L (137-145)
[2020-12-22] VITALS (16 sets, daily range): BP systolic 96–128; BP diastolic 63–87; PULSE 74–133; RESP 16–22; TEMP 36.2–36.6; O2SAT 98–100
[2020-12-22 05:16] LABS: Hematocrit 31.9 % (37.0-47.0); Hemoglobin 10.8 g/dL (12.0-15.0)
[2020-12-22 05:28] LABS: Chloride 89 mmol/L (98-107); Sodium 124 mmol/L (137-145)
[2020-12-22 05:29] LABS: Albumin Level 3.4 g/dL (3.5-5.1); Anion Gap 8 mmol/L (8-16); Blood Urea Nitrogen 12 mg/dL (7-17); Carbon Dioxide 27 mmol/L (22-30); Estimated CRCL calculation 52 ml/min; Estimated Glomerular Filt Rate > 60; Glucose 100 mg/dL (65-110); Magnesium 1.5 mg/dL (1.6-2.3)
[2020-12-22 05:53] LABS: Cortisol Random 7.27 ug/dL
[2020-12-22] MEDS: oxyCODONE HCL (*CRX) 5 MG TAB IR PO ×2 (09:00→17:45)
[2020-12-22] MEDS: predniSONE 2.5 MG TABLET PO ×3 (09:01→17:46)
[2020-12-22] MEDS: MAGNESIUM OXIDE 400 MG TABLET PO (09:01)
[2020-12-22] MEDS: METOPROLOL TARTRATE 50 MG TAB PO ×2 (09:01→22:17)
[2020-12-22] MEDS: CHOLECALCIFEROL 1,000 UNITS TABLET 2000 UNITS PO (09:01)
[2020-12-22] MEDS: FOLIC ACID 1 MG TABLET PO ×2 (09:01→17:46)
[2020-12-22] MEDS: lisinopriL 20 MG TABLET 40 MG PO (09:01)
--- NOTE | 2020-12-22 09:57 | PCPTNOTE ---
Attempted PT eval x 2. Pt refused as she was eating. Will try again at later time
[2020-12-22 12:30] LABS: Sodium 126 mmol/L (137-145)
--- NOTE | 2020-12-22 13:21 | PM.IMPN ---
Progress Note: A&P Assessment and Plan (1) Hyponatremia: Code(s): E87.1 - Hypo-osmolality and hyponatremia Status: Acute Assessment and Plan: Patient's sodium was 125 on admission and dropped to 117 likely due to diuretics. -It is improving, 126 today -she appears euvolemic now in the Lasix has been placed on hold for the time being -her normal sodium is usually 133-135 -Nephrology has been consulted, I appreciate their recommendations (2) Atrial fibrillation with RVR: Code(s): I48.91 - Unspecified atrial fibrillation Status: Acute Assessment and Plan: Patient has been doing well on oral metoprolol although heart rate is now 120s -she has been transitioned to Xarelto, [facility] has priced it and it will be around $60 and pt has agreed to this -patient states she has never had a history of atrial fibrillation although records do indicate that she has and she sees cardiology for this -echo without systolic dysfunction -cardiology has been consulted and I appreciate their recommendations (3) CHF (congestive heart failure): Qualifiers: Heart failure chronicity: acute on chronic Heart failure type: unspecified Qualified Code(s): I50.9 - Heart failure, unspecified Code(s): I50.9 - Heart failure, unspecified Status: Acute Assessment and Plan: Acute CHF exacerbation likely secondary to high-output failure. -no systolic dysfunction, unable to estimate diastolic (4) Urinary retention with incomplete bladder emptying: Code(s): R33.9 - Retention of urine, unspecified Status: Acute Assessment and Plan: Despite having significant urinary frequency the patient was still retaining 600 mL of urine after attempting to void. -Pt underwent voiding trial yesterday but continues to have frequent urination -family reports this has happened in the past and she had to go home with a catheter before. -I will ask the nurse to get a post void bladder scan this afternoon (5) Chronic pain: Qualifiers: Chronic pain type: chronic pain syndrome Qualified Code(s): G89.4 - Chronic pain syndrome Code(s): G89.29 - Other chronic pain Status: Acute Assessment and Plan: Chronic pain due to rheumatoid arthritis -continue home prednisone Subjective Date/time seen: 12/22/20 13:21 Interval history: Pt is a 80-year-old female here for AFib. Patient was seen today and continues to feel well. She has not had any further swelling her lower extremities. She denies nausea, vomiting, fevers, chills, constipation, diarrhea, chest pain, sob, or abdominal pain. She feels like she is 'peeing every 20 minutes . No pain to the abdomen. She does not like the food here. Exam Narrative: General: Well developed well nourished patient in NAD HEENT: normocephalic Neck: supple Neuro: Alert and oriented x4 CV: Irregularly irregular. Telemetry shows intermittent atrial fibrillation with occasional RVR more controlled. Current rate on exam was 120 Resp:CTA Abd: Soft, non distended. No pain to palpation. Positive bowel sounds Extremities: No swelling to lower extremities which is an improvement. Some chronic discoloration. No pain to palpation Objective Data Vital Signs Vital Signs: Vital Signs - 24 hr 12/21/20 13:46 12/21/20 14:00 12/21/20 16:00 Temperature 97.2 F L Pulse Rate 130 H 129 H 129 H Respiratory Rate 18 Blood Pressure 113/78 Pulse Oximetry 97 12/21/20 18:00 12/21/20 20:00 12/21/20 21:23 Temperature 97.5 F L Pulse Rate 128 H 129 H 122 H Respiratory Rate 22 H Blood Pressure 129/82 Pulse Oximetry 97 12/21/20 21:44 12/22/20 00:00 12/22/20 02:00 Temperature 97.9 F Pulse Rate 110 H 125 H 98 Respiratory Rate 16 Blood Pressure 121/86 Pulse Oximetry 98 12/22/20 02:48 12/22/20 04:00 12/22/20 06:00 Temperature 97.8 F Pulse Rate 124 H 114 H 98 Respiratory Rate 18 18 Blood Pr
--- NOTE | 2020-12-22 14:57 | P.PNNP_ITS ---
Progress Note: A&P Assessment and Plan (1) Hyponatremia: Code(s): E87.1 - Hypo-osmolality and hyponatremia Status: Acute Assessment and Plan: * acute on chronic * baseline sodium levels usually runs ~ 132 - 135 as far back as 2016 * suspect chronic low sodium level due to chronic pain and need/use of narcotics * acute hyponatremia presumably due mild CHF on admission worsened by diuresis/diuretic therapy * TSH okay and cortisol lowish ( but already on chronic steroids) * follow-up on serum/urine osmolality, SPEP, UPEP, and kappa/lambda ratio * agree with holding diuretics for now * on fluid restriction but increased to 2000cc/day * goal of therapy is a rate of change of 4 - 6mmol/L (but not to exceed 8mmol/L) in 24 hours - this is being acheived * follow serial sodium levels (2) Atrial fibrillation with RVR: Code(s): I48.91 - Unspecified atrial fibrillation Status: Acute Assessment and Plan: * continue rate control strategy * on anticoagulation * Cardiiology following (3) Acute diastolic CHF (congestive heart failure): Code(s): I50.31 - Acute diastolic (congestive) heart failure Status: Acute Assessment and Plan: * euvolemic following aggressive diuresis * follow volume status since diuretic currently on hold (4) HTN (hypertension): Code(s): I10 - Essential (primary) hypertension Status: Chronic Assessment and Plan: * reasonable control * follow trend of hemodynamics Will continue to follow. Subjective Date/time seen: 12/22/20 14:57 Appears to be doing reasonably well; sodium level appears to be correction reasonably well with conservative therapy; no other acute complaints voiced; no issues/events overnight or earlier this AM. Exam Narrative: General: Elderly female in NAD Heart: normal S1 and S2; no rub Lungs: clear to auscultation Abdomen: soft, nontender, nondistended, positive bowel sounds Extremities: no cyanosis or clubbing; no edema Skin: warm and dry Objective Data Vital Signs Vital Signs: Vital Signs Temp Pulse Resp BP Pulse Ox 12/22/20 14:00 87 12/22/20 12:00 36.5 C 82 16 96/69 L 98 12/22/20 10:00 74 12/22/20 08:00 36.6 C 86 18 115/85 99 12/22/20 06:00 98 09/30/21 04:00 114 H 18 99 12/22/20 02:48 36.6 C 124 H 18 124/85 99 12/22/20 02:00 98 12/22/20 00:00 36.6 C 125 H 16 121/86 98 12/21/20 21:44 110 H 12/21/20 21:23 122 H 12/21/20 20:00 36.4 C L 129 H 22 H 129/82 97 12/21/20 18:00 128 H Intake/Output Intake/Output: Intake & Output 12/19/20 12/20/20 12/21/20 12/22/20 23:59 23:59 23:59 23:59 Intake Total 1050 1680 170 Output Total 1100 6275 3519 2500 [facility] -6936 -3050 -2495 -2330 Meds/Results Medications: Active Medications Generic Name Dose Route Start Last Admin Trade Name Freq PRN Reason Stop Dose Admin Hydrocodone Bitart/Acetaminophen 2 tab 12/19/20 18:30 12/21/20 23:44 Hydrocodone/Acetaminophen (*Crx) 5-325 Mg Tablet PO 2 tab Q4H PRN Administration Pain Rated 4-6 Diltiazem HCl 5 mg 12/21/20 16:29 12/21/20 21:11 Diltiazem Hcl Inj 25 Mg/5 Ml Vial IV PUSH 5 mg
--- NOTE | 2020-12-22 14:57 | PM.PNNEP ---
Progress Note: A&P Assessment and Plan (1) Hyponatremia: Code(s): E87.1 - Hypo-osmolality and hyponatremia Status: Acute Assessment and Plan: acute on chronic baseline sodium levels usually runs ~ 132 - 135 as far back as 2016 suspect chronic low sodium level due to chronic pain and need/use of narcotics acute hyponatremia presumably due mild CHF on admission worsened by diuresis/diuretic therapy TSH okay and cortisol lowish ( but already on chronic steroids) follow-up on serum/urine osmolality, SPEP, UPEP, and kappa/lambda ratio agree with holding diuretics for now on fluid restriction but increased to 2000cc/day goal of therapy is a rate of change of 4 - 6mmol/L (but not to exceed 8mmol/L) in 24 hours - this is being acheived follow serial sodium levels (2) Atrial fibrillation with RVR: Code(s): I48.91 - Unspecified atrial fibrillation Status: Acute Assessment and Plan: continue rate control strategy on anticoagulation Cardiiology following (3) Acute diastolic CHF (congestive heart failure): Code(s): I50.31 - Acute diastolic (congestive) heart failure Status: Acute Assessment and Plan: euvolemic following aggressive diuresis follow volume status since diuretic currently on hold (4) HTN (hypertension): Code(s): I10 - Essential (primary) hypertension Status: Chronic Assessment and Plan: reasonable control follow trend of hemodynamics Will continue to follow. Subjective Date/time seen: 12/22/20 14:57 Appears to be doing reasonably well; sodium level appears to be correction reasonably well with conservative therapy; no other acute complaints voiced; no issues/events overnight or earlier this AM. Exam Narrative: General: Elderly female in NAD Heart: normal S1 and S2; no rub Lungs: clear to auscultation Abdomen: soft, nontender, nondistended, positive bowel sounds Extremities: no cyanosis or clubbing; no edema Skin: warm and dry Objective Data Vital Signs Vital Signs: Vital Signs Temp Pulse Resp BP Pulse Ox 12/22/20 14:00 87 12/22/20 12:00 36.5 C 82 16 96/69 L 98 12/22/20 10:00 74 12/22/20 08:00 36.6 C 86 18 115/85 99 12/22/20 06:00 98 12/22/20 04:00 114 H 18 99 12/22/20 02:48 36.6 C 124 H 18 124/85 99 12/22/20 02:00 98 12/22/20 00:00 36.6 C 125 H 16 121/86 98 12/21/20 21:44 110 H 12/21/20 21:23 122 H 12/21/20 20:00 36.4 C L 129 H 22 H 129/82 97 12/21/20 18:00 128 H Intake/Output Intake/Output: Intake & Output 12/19/20 12/20/20 12/21/20 12/22/20 23:59 23:59 23:59 23:59 Intake Total 1050 1680 170 Output Total 1100 5808 6997 2500 Balance -9318 -1270 -2495 -2330 Meds/Results Medications: Active Medications Generic Name Dose Route Start Last Admin Trade Name Freq PRN Reason Stop Dose Admin Hydrocodone Bitart/Acetaminophen 2 tab 12/19/20 18:30 12/21/20 23:44 Hydrocodone/Acetaminophen (*Crx) 5-325 Mg Tablet PO 2 tab Q4H PRN Administration Pain Rated 4-6 Diltiazem HCl 5 mg 12/21/20 16:29 12/21/20 21:11 Diltiazem Hcl Inj 25 Mg/5 Ml Vial IV PUSH 5 mg Q2H PRN Administration Tachycardia Diltiazem HCl 120 mg 12/23/20 09:00 Diltiazem Hcl Cd 120 Mg Cap.Sa.24h PO QAM JAYNA Folic Acid 1 mg 12/20/20 09:00 12/22/20 09:01 Folic Acid 1 Mg Tablet PO 1 mg BID JAYNA Administration Lisinopril 40 mg 12/20/20 09:00 12/22/20 09:01 Lisinopril 20 Mg Tablet PO 40 mg DAILY JAYNA Administration Magnesium Oxide 400 mg 12/22/20 09:00 12/22/20 09:01 Magnesium Oxide 400 Mg Tablet PO 400 mg DAILY JAYNA Administration Metoprolol Tartrate 50 mg 12/20/20 21:00 12/22/20 09:01 Metoprolol Tartrate 50 Mg Tab PO 50 mg Q12HR JAYNA Administration Miconazole Nitrate 1 applic 12/20/20 09:00 12/22/20 09:01 Miconazole 2% Antifungal Ointment 56 Gm TOPICAL 1 applic Q1
--- NOTE | 2020-12-22 15:38 | PM.PNCARD ---
Progress Note: A&P Assessment and Plan (1) Atrial fibrillation with RVR: Code(s): I48.91 - Unspecified atrial fibrillation Status: Acute Assessment and Plan: Admitted with atrial fibrillation now atrial flutter, back with rapid ventricular response Add Cardizem 120mg daily and continue metoprolol 50 mg b.i.d.. D/c PRN IV cardizem Discontinue amlodipine to give us more room with her blood pressure to push her AFib meds Anticoagulated with Xarelto 20 mg daily; GFR greater than 50 mils per minute. (2) Acute diastolic CHF (congestive heart failure): Code(s): I50.31 - Acute diastolic (congestive) heart failure Status: Acute Assessment and Plan: Good diuresis, looks euvolemic. Diuretics discontinued. Normal left ventricular function by echo. Continued to control heart rate response and hypertension (3) Hyponatremia: Code(s): E87.1 - Hypo-osmolality and hyponatremia Status: Acute Assessment and Plan: Diuretics held. Daily BMP. Subjective Date/time seen: 12/22/20 15:38 Interval history: Follow-up for: Patient admitted with edema, found to have AFib RVR and diastolic CHF. Normally sees Dr. Jensen. Date of service 12/21/2020: Patient has gone into an atrial flutter rate 130s, has not responded to Lopressor 5 mg IV push. Currently also taking metoprolol tartrate 25 mg b.i.d. and Xarelto. Doesn't feel well, sat up too long and is sore and tired. No SOB. Diuresed 6600 cc this admission. Echo showed normal LV function as below. Hypokalemia and hyponatremia noted. Date of service 12/22/2020: Remains in Afib/Aflutter 120's-130's. Diltiazem 5mg IV added as needed for HR >115 in addition to metoprolol 50mg BID. Feels okay today. Denies any palpitations or shortness of breath. Diuretics now on hold due to hyponatremia. Review of Systems Review of Systems: All systems reviewed & are unremarkable except as noted in HPI and below Constitutional: Constitutional: Denies excessive sweating, Reports fatigue, Denies headache(s), Denies lethargy and Denies weakness Eyes: Eyes: Reports no additional eye complaints and Denies blurry vision ENT: Reports Normal hearing present, Denies headache(s), Denies epistaxis and Denies tinnitus Cardiovascular: Cardiovascular: Denies chest pain, Denies diaphoresis, Denies pedal edema, Denies leg edema, Denies lightheadedness, Denies palpitations, Denies dyspnea and Denies dyspnea on exertion Respiratory: Respiratory: Denies dyspnea and Denies dyspnea on exertion Gastrointestinal: Gastrointestinal: Denies abdominal pain, Denies constipation and Denies diarrhea Genitourinary: Genitourinary: Denies hematuria and Denies dysuria Musculoskeletal: Musculoskeletal: Reports back pain, Reports arthralgias and Reports joint swelling Integumentary/Breasts: Skin/Breast: Reports system reviewed and no additional complaints, except as docu and Denies wounds Neurologic: Reports system reviewed and no additional complaints, except as documented, Reports Normal hearing present, Denies headache(s) and Denies weakness Psychiatric: Psychiatric: Reports no additional psychiatric complaints, Denies anxiety and Denies depression Endocrine: Endocrine: Denies excessive sweating, Reports fatigue and Denies palpitations Hematologic/Lymphatic: Hematologic/Lymphatic: Denies easy bleeding and Denies easy bruising Allergic/Immunologic: Allergic/Immunologic: Denies GI upset with certain foods Exam Narrative: Just got back in bed, irritable Const: General: comfortable, no acute distress and uncomfortable Other: Elderly female lying comfortably in bed. Alert and oriented. Pleasant cooperative. HENMT: Mouth: Yes moist mucous membranes Eyes: General: appearance normal, both eyes and all related structures Pupils: Equal, round and reactive pupils present EOM: EOMs intact bilaterally Neck
[2020-12-22] MEDS: RIVAROXABAN 20 MG TABLET PO (17:46)
[2020-12-22 18:08] LABS: Sodium 128 mmol/L (137-145)
[2020-12-22] MEDS: HYDROcodone/acetaminophen (*CRX) 5-325 MG TABLET 2 TAB PO (22:17)
[2020-12-22] MEDS: dilTIAZem HCl INJ 25 MG/5 ML VIAL 5 MG IV PUSH (22:18)
[2020-12-23] VITALS (18 sets, daily range): BP systolic 100–140; BP diastolic 61–101; PULSE 40–132; RESP 15–23; TEMP 36.2–37.4; O2SAT 95–100
[2020-12-23 05:11] LABS: Hematocrit 29.8 % (37.0-47.0); Hemoglobin 9.9 g/dL (12.0-15.0); Mean Corpuscular HGB Conc 33.2 g/dl (32-36); Mean Corpuscular Hemoglobin 30.3 pg (26-34); Mean Corpuscular Volume 91.1 fl (80-100); Mean Platelet Volume 8.5 fl (7.4-10.4); Platelet Count Result 254 k/mm3 (150-375); Red Blood Count 3.27 M/mm3 (4.2-5.4); Red Cell Distribution Width 15.2 % (11.5-14.5); White Blood Count 7.6 K/mm3 (4.5-10.0)
[2020-12-23 05:24] LABS: Alanine Aminotransferase 17 U/L (4-35); Albumin Level 3.1 g/dL (3.5-5.1); Alkaline Phosphatase 58 U/L (38-126); Anion Gap 4 mmol/L (8-16); Aspartate Amino Transferase 19 U/L (14-36); Bilirubin,Total 0.5 mg/dL (0.2-1.3); Blood Urea Nitrogen 11 mg/dL (7-17); Calcium 8.7 mg/dL (8.4-10.2); Carbon Dioxide 29 mmol/L (22-30); Chloride 96 mmol/L (98-107); Estimated CRCL calculation 52 ml/min; Estimated Glomerular Filt Rate > 60; Glucose 91 mg/dL (65-110); Magnesium 1.8 mg/dL (1.6-2.3); Phosphorus 3.4 mg/dL (2.5-4.5); Sodium 129 mmol/L (137-145)
[2020-12-23] MEDS: CHOLECALCIFEROL 1,000 UNITS TABLET 2000 UNITS PO (08:05)
[2020-12-23] MEDS: lisinopriL 20 MG TABLET 40 MG PO (08:05)
[2020-12-23] MEDS: predniSONE 2.5 MG TABLET PO ×3 (08:05→16:54)
[2020-12-23] MEDS: oxyCODONE HCL (*CRX) 5 MG TAB IR PO ×2 (08:05→16:54)
[2020-12-23] MEDS: MAGNESIUM OXIDE 400 MG TABLET PO (08:06)
[2020-12-23] MEDS: FOLIC ACID 1 MG TABLET PO ×2 (08:06→16:54)
[2020-12-23] MEDS: METOPROLOL TARTRATE 50 MG TAB PO ×2 (08:06→20:28)
--- NOTE | 2020-12-23 11:40 | PM.IMPN ---
Progress Note: A&P Assessment and Plan (1) Hyponatremia: Code(s): E87.1 - Hypo-osmolality and hyponatremia Status: Acute Assessment and Plan: Patient's sodium was 125 on admission and dropped to 117 likely due to diuretics. -It is improving, 129 today -she appears euvolemic now in the Lasix has been placed on hold for the time being -her normal sodium is usually 133-135 -Nephrology has been consulted, I appreciate their recommendations (2) Atrial fibrillation with RVR: Code(s): I48.91 - Unspecified atrial fibrillation Status: Acute Assessment and Plan: Patient continues to be tachycardic. Plan for AVERY cardioversion later today -she has been transitioned to Xarelto, [facility] has priced it and it will be around $60 and pt has agreed to this -patient states she has never had a history of atrial fibrillation although records do indicate that she has and she sees cardiology for this -echo without systolic dysfunction -cardiology has been consulted and I appreciate their recommendations (3) CHF (congestive heart failure): Qualifiers: Heart failure chronicity: acute on chronic Heart failure type: unspecified Qualified Code(s): I50.9 - Heart failure, unspecified Code(s): I50.9 - Heart failure, unspecified Status: Acute Assessment and Plan: Resolved -Acute CHF exacerbation was likely secondary to high-output failure. -no systolic dysfunction, unable to estimate diastolic (4) Urinary retention with incomplete bladder emptying: Code(s): R33.9 - Retention of urine, unspecified Status: Acute Assessment and Plan: pt voiding well now -monitor (5) Chronic pain: Qualifiers: Chronic pain type: chronic pain syndrome Qualified Code(s): G89.4 - Chronic pain syndrome Code(s): G89.29 - Other chronic pain Status: Acute Assessment and Plan: Chronic pain due to rheumatoid arthritis -continue home prednisone Subjective Date/time seen: 12/23/20 11:40 Interval history: Pt is a 80-year-old female here for AFib. Patient was seen today and continues to feel well. She has not had any further swelling her lower extremities. She denies nausea, vomiting, fevers, chills, constipation, diarrhea, chest pain, sob, or abdominal pain. She is anxiously awaiting her procedure. Exam Narrative: General: Well developed well nourished patient in NAD HEENT: normocephalic Neck: supple Neuro: Alert and oriented x4 CV: Irregularly irregular. Telemetry shows intermittent atrial fibrillation. Current rate on exam was 132 Resp:CTA Abd: Soft, non distended. No pain to palpation. Positive bowel sounds Extremities: No swelling to lower extremities which is an improvement. Some chronic discoloration. No pain to palpation Objective Data Vital Signs Vital Signs: Vital Signs - 24 hr 12/22/20 12:00 12/22/20 14:00 12/22/20 16:00 Temperature 97.7 F 97.2 F L Pulse Rate 82 87 112 H Respiratory Rate 16 22 H Blood Pressure 96/69 L 128/87 Pulse Oximetry 98 100 12/22/20 18:00 12/22/20 19:49 12/22/20 20:00 Temperature 97.8 F Pulse Rate 102 H 132 H 133 H Respiratory Rate 22 H 22 H Blood Pressure 110/63 Pulse Oximetry 99 99 12/22/20 22:00 12/22/20 22:17 12/22/20 23:19 Temperature 97.9 F Pulse Rate 92 130 H 110 H Respiratory Rate 20 Blood Pressure 100/77 Pulse Oximetry 99 12/23/20 02:00 12/23/20 04:00 12/23/20 05:54 Temperature 98 F Pulse Rate 92 66 84 Respiratory Rate 18 Blood Pressure 107/70 Pulse Oximetry 98 12/23/20 08:55 Temperature 98.3 F Pulse Rate 106 H Respiratory Rate 22 H Blood Pressure 121/85 Pulse Oximetry 97 Intake/Output Intake/Output: Intake & Output 12/20/20 12/21/20 12/22/20 12/23/20 23:59 23:59 23:59 23:59 Intake Total 1050 1680 290 200 Output Total 4100 4175 2800 750 Balance -3050 -2495 -2510 -550 Meds/Results Medications: Active
--- NOTE | 2020-12-23 11:43 | PCOTNOTE ---
Attempted to see patient this am, however patient going for testing/procedure at this time.
--- NOTE | 2020-12-23 11:50 | PM.PNNEP ---
Progress Note: A&P Assessment and Plan (1) Hyponatremia: Code(s): E87.1 - Hypo-osmolality and hyponatremia Status: Acute Assessment and Plan: acute on chronic baseline sodium levels usually runs ~ 132 - 135 as far back as 2016 suspect chronic low sodium level due to chronic pain and need/use of narcotics acute hyponatremia presumably due mild CHF on admission worsened by diuresis/diuretic therapy TSH okay and cortisol lowish ( but already on chronic steroids) follow-up on serum/urine osmolality, SPEP, UPEP, and kappa/lambda ratio agree with holding diuretics for now on fluid restriction but increased to 2000cc/day -- may need to adjust again (i.e. 1500cc/day) goal of therapy is a rate of change of 4 - 6mmol/L (but not to exceed 8mmol/L) in 24 hours - this is being achieved follow serial sodium levels (2) Atrial fibrillation with RVR: Code(s): I48.91 - Unspecified atrial fibrillation Status: Acute Assessment and Plan: continue rate control strategy on anticoagulation AVERY and cardioversion today Cardiology following (3) Acute diastolic CHF (congestive heart failure): Code(s): I50.31 - Acute diastolic (congestive) heart failure Status: Acute Assessment and Plan: euvolemic following aggressive diuresis follow volume status since diuretic currently on hold (4) HTN (hypertension): Code(s): I10 - Essential (primary) hypertension Status: Chronic Assessment and Plan: reasonable control follow trend of hemodynamics Will continue to follow. Subjective Date/time seen: 12/23/20 11:50 Appears to be doing reasonably well at the time of my visit; sodium level continus to slowly improve with conservative therapy (mild fluid restriction and holding diuretics); noted plans for AVERY and cardioversion this afternoon for treatment of her Afib Exam Narrative: General: Elderly female in NAD Heart: normal S1 and S2; IRRR, tachycardic, no rub Lungs: clear to auscultation Abdomen: soft, nontender, nondistended, positive bowel sounds Extremities: no cyanosis or clubbing; no edema Skin: warm and dry Objective Data Vital Signs Vital Signs: Vital Signs Temp Pulse Resp BP Pulse Ox 12/23/20 10:00 75 12/23/20 08:55 36.8 C 106 H 22 H 121/85 97 10/01/21 08:00 132 H 12/23/20 05:54 84 12/23/20 04:00 36.6 C 66 18 107/70 98 12/23/20 02:00 92 12/22/20 23:19 36.6 C 110 H 20 100/77 99 12/22/20 22:17 130 H 12/22/20 22:00 92 12/22/20 20:00 133 H 22 H 99 12/22/20 19:49 36.6 C 132 H 22 H 110/63 99 12/22/20 18:00 102 H Intake/Output Intake/Output: Intake & Output 12/20/20 12/21/20 12/22/20 12/23/20 23:59 23:59 23:59 23:59 Intake Total 1050 1680 290 200 Output Total 4100 4177 2800 750 [facility] -3050 -2495 -2510 -550 Meds/Results Medications: Active Medications Generic Name Dose Route Start Last Admin Trade Name Freq PRN Reason Stop Dose Admin Hydrocodone Bitart/Acetaminophen 2 tab 12/19/20 18:30 12/22/20 22:17 Hydrocodone/Acetaminophen (*Crx) 5-325 Mg Tablet PO 2 tab Q4H PRN Administration Pain Rated 4-6 Diltiazem HCl 5 mg 12/21/20 16:29 12/22/20 22:18 Diltiazem Hcl Inj 25 Mg/5 Ml Vial IV PUSH 5 mg Q2H PRN Administration Tachycardia Folic Acid 1 mg 12/20/20 09:00 12/23/20 08:06 Folic Acid 1 Mg Tablet PO 1 mg BID JAYNA Administration Lisinopril 40 mg 12/20/20 09:00 12/23/20 08:05 Lisinopril 20 Mg Tablet PO 40 mg DAILY JAYNA Administration Magnesium Oxide 400 mg 12/22/20 09:00 12/23/20 08:06 Magnesium Oxide 400 Mg Tablet PO 400 mg DAILY JAYNA Administration Metoprolol Tartrate 50 mg 12/20/20 21:00 12/23/20 08:06 Metoprolol Tartrate 50 Mg Tab PO 50 mg Q12HR JAYNA Administration Miconazole Nitrate 1 applic 12/20/20 09:00 12/23/20 08:05 Miconazole 2% Antifungal Ointment 56 Gm TOPICAL 1 a
--- NOTE | 2020-12-23 11:50 | P.PNNP_ITS ---
Progress Note: A&P Assessment and Plan (1) Hyponatremia: Code(s): E87.1 - Hypo-osmolality and hyponatremia Status: Acute Assessment and Plan: * acute on chronic * baseline sodium levels usually runs ~ 132 - 135 as far back as 2016 * suspect chronic low sodium level due to chronic pain and need/use of narcotics * acute hyponatremia presumably due mild CHF on admission worsened by diuresis/diuretic therapy * TSH okay and cortisol lowish ( but already on chronic steroids) * follow-up on serum/urine osmolality, SPEP, UPEP, and kappa/lambda ratio * agree with holding diuretics for now * on fluid restriction but increased to 2000cc/day -- may need to adjust again (i.e. 1500cc/day) * goal of therapy is a rate of change of 4 - 6mmol/L (but not to exceed 8mmol/L) in 24 hours - this is being achieved * follow serial sodium levels (2) Atrial fibrillation with RVR: Code(s): I48.91 - Unspecified atrial fibrillation Status: Acute Assessment and Plan: * continue rate control strategy * on anticoagulation * AVERY and cardioversion today * Cardiology following (3) Acute diastolic CHF (congestive heart failure): Code(s): I50.31 - Acute diastolic (congestive) heart failure Status: Acute Assessment and Plan: * euvolemic following aggressive diuresis * follow volume status since diuretic currently on hold (4) HTN (hypertension): Code(s): I10 - Essential (primary) hypertension Status: Chronic Assessment and Plan: * reasonable control * follow trend of hemodynamics Will continue to follow. Subjective Date/time seen: 12/23/20 11:50 Appears to be doing reasonably well at the time of my visit; sodium level continus to slowly improve with conservative therapy (mild fluid restriction and holding diuretics); noted plans for AVERY and cardioversion this afternoon for treatment of her Afib Exam Narrative: General: Elderly female in NAD Heart: normal S1 and S2; IRRR, tachycardic, no rub Lungs: clear to auscultation Abdomen: soft, nontender, nondistended, positive bowel sounds Extremities: no cyanosis or clubbing; no edema Skin: warm and dry Objective Data Vital Signs Vital Signs: Vital Signs Temp Pulse Resp BP Pulse Ox 12/23/20 10:00 75 12/23/20 08:55 36.8 C 106 H 22 H 121/85 97 12/23/20 08:00 132 H 12/23/20 05:54 84 12/23/20 04:00 36.6 C 66 18 107/70 98 12/23/20 02:00 92 12/22/20 23:19 36.6 C 110 H 20 100/77 99 12/22/20 22:17 130 H 12/22/20 22:00 92 12/22/20 20:00 133 H 22 H 99 12/22/20 19:49 36.6 C 132 H 22 H 110/63 99 12/22/20 18:00 102 H Intake/Output Intake/Output: Intake & Output 12/20/20 12/21/20 12/22/20 12/23/20 23:59 23:59 23:59 23:59 Intake Total 1050 1680 290 200 Output Total 4100 4175 2800 750 Balance -3050 -2495 -2510 -550 Meds/Results Medications: Active Medications Generic Name Dose Route Start Last Admin Trade Name Freq PRN Reason Stop Dose Admin Hydrocodone Bitart/Acetaminophen 2 tab 12/19/20 18:30 12/22/20 22:17 Hydrocodone/Acetaminophen (*Crx) 5-325 Mg Tablet PO 2 tab Q4H PRN Administration Pain Rated 4-6 Diltiazem HCl 5 m
--- NOTE | 2020-12-23 12:17 | WPDMODSED ---
Moderate Sedation Note-Pt Data Patient Data Diagnosis: Atrial fibrillation/flutter Present Complaint: Atrial fibrillation/flutter Procedure to be performed/Plan: Multiplanar transesophageal echocardiography with pulsed color-flow pulse-wave Doppler Electrical cardioversion Allergies Allergy/AdvReac Type Severity Reaction Status Date / Time Penicillins Allergy Unknown Unknown Verified 12/19/20 15:22 Home Medications Medication Instructions Recorded Confirmed Type metoprolol succinate 25 mg 25 mg PO DAILY 12/25/19 12/19/20 History tablet,extended release 24 hr oxycodone-acetaminophen 10 mg-325 1 tablet PO Q8H PRN 10/21/20 12/19/20 History mg tablet folic acid 1 mg tablet 1 mg PO BID #180 tablet 11/16/20 12/19/20 Rx prednisone 2.5 mg tablet 2.5 mg PO TID #270 tablet 11/18/20 12/19/20 Rx [facility] 12/19/20 12/19/20 History Calcitrate-Vitamin D 2,000 caplet [facility] DAILY 12/19/20 12/19/20 History amlodipine 10 mg PO DAILY 12/19/20 12/19/20 History lisinopril 40 mg PO DAILY 12/19/20 12/19/20 History Current Medications: Active Medications Hydrocodone Bitart/Acetaminophen (Hydrocodone/Acetaminophen (*Crx) 5-325 Mg Tablet) 2 tab PO Q4H PRN PRN Reason: Pain Rated 4-6 Last Admin: 12/22/20 22:17 Dose: 2 tab Documented by: Diltiazem HCl (Diltiazem Hcl Inj 25 Mg/5 Ml Vial) 5 mg IV PUSH Q2H PRN PRN Reason: Tachycardia Last Admin: 12/22/20 22:18 Dose: 5 mg Documented by: Diltiazem HCl (Diltiazem Hcl Cd 120 Mg Cap.Sa.24h) 120 mg PO QAM [facility] Last Admin: 12/23/20 08:06 Dose: 120 mg Documented by: Folic Acid (Folic Acid 1 Mg Tablet) 1 mg PO BID [facility] Last Admin: 12/23/20 08:06 Dose: 1 mg Documented by: Lisinopril (Lisinopril 20 Mg Tablet) 40 mg PO DAILY [facility] Last Admin: 12/23/20 08:05 Dose: 40 mg Documented by: Magnesium Oxide (Magnesium Oxide 400 Mg Tablet) 400 mg PO DAILY [facility] Last Admin: 12/23/20 08:06 Dose: 400 mg Documented by: Metoprolol Tartrate (Metoprolol Tartrate 50 Mg Tab) 50 mg PO Q12HR [facility] Last Admin: 12/23/20 08:06 Dose: 50 mg Documented by: Miconazole Nitrate (Miconazole 2% Antifungal Ointment 56 Gm) 1 applic TOPICAL Q12HR [facility] Last Admin: 12/23/20 08:05 Dose: 1 applic Documented by: Oxycodone HCl (Oxycodone Hcl (*Crx) 5 Mg Tab Ir) 5 mg PO Q8H PRN PRN Reason: Pain (Scale Score 7-10) Last Admin: 12/23/20 08:05 Dose: 5 mg Documented by: Oxycodone/Acetaminophen (Oxycodone/Acetaminophen (*Crx) 5-325 Mg Tablet) 1 tablet PO Q8H PRN PRN Reason: Pain (Scale Score 7-10) Last Admin: 12/21/20 18:53 Dose: 1 tablet Documented by: Prednisone (Prednisone 2.5 Mg Tablet) 2.5 mg PO TIDWM [facility] Last Admin: 12/23/20 08:05 Dose: 2.5 mg Documented by: Rivaroxaban (Rivaroxaban 20 Mg Tablet) 20 mg PO DAILY@1800 [facility] Last Admin: 12/22/20 17:46 Dose: 20 mg Documented by: Vitamin D (Cholecalciferol 1,000 Units Tablet) 2,000 units PO DAILY [facility] Last Admin: 12/23/20 08:05 Dose: 2,000 units Documented by: Sedation/Anesthesia: No previous sedation/anesthesia problems (including family history). [facility] Past Medical History Medical History Chronic pain Essential hypertension Mitral valve regurgitation Moderate pulmonary hypertension Osteoporosis Paroxysmal atrial fibrillation (06/2015) Rheumatoid arteritis Spinal stenosis Vitamin D deficiency disease Surgical History Surgical History Atrial fibrillation status post cardioversion (06/2015) Family History Family History Sibling Hypertension Diabetes mellitus Sibling Lung cancer Sibling Esophageal cancer Sibling Colon cancer Social History Social History Social History: She has been since January 2020. She lives alone. She has 2 children who live nearby. For t
--- NOTE | 2020-12-23 12:33 | ECG_ITS ---
Measurements Intervals [place] Rate: 46 P: 85 [place]: 159 QRS: -38 QRSD: 130 T: 142 QT: 435 QTc: 384 Interpretive Statements SINUS BRADYCARDIA ATRIAL PREMATURE COMPLEXES LEFT AXIS DEVIATION INTRAVENTRICULAR CONDUCTION DELAY LEFT VENTRICULAR HYPERTROPHY AND ST-T CHANGE MINIMAL Q WAVES- HIGH LATERAL LEADS BORDERLINE T WAVE ABNORMALITY- ANTEROLAT/INF LEADS BASELINE ARTIFACT- I, III, V3 ABNORMAL ECG Electronically Signed On 12-23-2020 12:52:36 CDT by Tello Harris D.O.
--- NOTE | 2020-12-23 12:33 | WPDTECDV ---
AVERY with Cardioversion Date of procedure: 12/23/20 Procedure Type: Multiplanar transesophageal echo with pulse-wave and color-flow Doppler Moderate sedation Electrical cardioversion Diagnosis: Atrial fibrillation/flutter Indications: Atrial fibrillation/flutter Description of Procedure: After discussing the risks, benefits alternatives of procedure the patient agreeable via verbal and written informed consent. Risks discussed included esophageal rupture perforation, bleeding, pain, infection, stroke, need for emergent surgery, , shocking into more problematic heart rhythm. After establishing continuous insurance sales assistant, pulse oxygenation is and serial blood pressure assessments the time-out was taken and procedure was started. Procedure start time 12:20 p.m. Procedure stop time 12:27 p.m. Complications: None Blood loss: None Sedation: A total of 2 mg of Versed and 50 mcg fentanyl given in divided dosages. Medications were administered and patient was monitored by Ya Nieves RN Findings: Normal left ventricular size with ejection fraction around 50%. Moderate left atrial enlargement. Normal right ventricular size and function. Normal right atrial size. Atrial septum is intact without color flow evidence of shunting. Tricuspid valve shows moderate to severe tricuspid regurgitation. Pulmonic valve is normal with mild pulmonic regurgitation. Mitral valve is also normal with moderate mitral regurgitation. Aortic valve is moderately sclerotic and trileaflet mild aortic insufficiency. Left atrial appendage is free of mass or thrombus with velocities of 50-70 centimeters/second. Aortic root measures 2.8-2.9 cm. No pericardial effusion. Successful adventism of sinus rhythm from atrial fibrillation using 150 joules of biphasic synchronized energy Conclusion: 1. Moderate sedation 2. EF 50%, left atrial enlargement, moderate to severe tricuspid regurgitation, moderate mitral regurgitation, aortic valve sclerosis without stenosis but with mild aortic insufficiency. No left atrial appendage thrombus 3. Successful adventism of sinus rhythm using 150 joules of biphasic synchronized energy
--- NOTE | 2020-12-23 13:19 | PCPTNOTE ---
The patient treatment was not able to be completed today due to patient out of room for cardioversion. Will plan to continue treatment per plan of care.
--- NOTE | 2020-12-23 13:39 | SUR.PHASEII ---
report given to joe orosco. patient transfered on monitor via wc back to room. md park aware of hr 40s-60s.patient assisted to bed by [facility] staff.
[2020-12-23 14:04] LABS: Sodium 131 mmol/L (137-145)
[2020-12-23] MEDS: RIVAROXABAN 20 MG TABLET PO (16:54)
[2020-12-24] VITALS (7 sets, daily range): BP systolic 113–134; BP diastolic 57–71; PULSE 46–65; RESP 14–18; TEMP 36.5–36.8; O2SAT 91–97
[2020-12-24] MEDS: HYDROcodone/acetaminophen (*CRX) 5-325 MG TABLET 2 TAB PO (02:16)
[2020-12-24 06:10] LABS: Hematocrit 29.8 % (37.0-47.0); Hemoglobin 9.8 g/dL (12.0-15.0)
[2020-12-24 06:24] LABS: Albumin Level 3.2 g/dL (3.5-5.1); Anion Gap 8 mmol/L (8-16); Blood Urea Nitrogen 11 mg/dL (7-17); Calcium 8.9 mg/dL (8.4-10.2); Carbon Dioxide 25 mmol/L (22-30); Chloride 96 mmol/L (98-107); Estimated CRCL calculation 60 ml/min; Estimated Glomerular Filt Rate > 60; Glucose 85 mg/dL (65-110); Phosphorus 3.2 mg/dL (2.5-4.5); Potassium 3.9 mmol/L (3.4-5.0); Sodium 129 mmol/L (137-145)
--- NOTE | 2020-12-24 06:57 | PM.PNCARD ---
Progress Note: A&P Assessment and Plan (1) Atrial fibrillation with RVR: Code(s): I48.91 - Unspecified atrial fibrillation Status: Acute Assessment and Plan: Admitted with atrial fibrillation then atrial flutter with rapid ventricular response Anticoagulated with Xarelto 20 mg daily; GFR greater than 50 mils per minute. Cardioverted on 12/23/2020. Remains in sinus rhythm although bradycardic at times taking metoprolol succinate 50 mg daily. Will reduce to metoprolol succinate 25 mg 1.5 tablets daily. Reviewed medication changes with the patient. Okay for discharge. (2) Acute diastolic CHF (congestive heart failure): Code(s): I50.31 - Acute diastolic (congestive) heart failure Status: Acute Assessment and Plan: Good diuresis, looks nearly euvolemic (some rales in the right base). Diuretics discontinued. Normal left ventricular function by echo. Okay for discharge. (3) Hyponatremia: Code(s): E87.1 - Hypo-osmolality and hyponatremia Status: Acute Assessment and Plan: Diuretics held. Daily BMP. Improved Subjective Date/time seen: 12/24/20 06:57 Interval history: Follow-up for: Patient admitted with edema, found to have AFib RVR and diastolic CHF. Normally sees Dr. Jensen. 12/21/2020: Patient has gone into an atrial flutter rate 130s, has not responded to Lopressor 5 mg IV push. Currently also taking metoprolol tartrate 25 mg b.i.d. and Xarelto. Doesn't feel well, sat up too long and is sore and tired. No SOB. Diuresed 6600 cc this admission. Echo showed normal LV function as below. Hypokalemia and hyponatremia noted. 12/22/2020: Remains in Afib/Aflutter 120's-130's. Diltiazem 5mg IV added as needed for HR >115 in addition to metoprolol 50mg BID. Feels okay today. Denies any palpitations or shortness of breath. Diuretics now on hold due to hyponatremia. 12/23/2020: AVERY guided cardioversion successsful. Mildly bradycardic, heart rate 48- 50s, diltiazem discontinued. Date of service 12/24/2020: Patient is feeling well, but anxious to go home. Ambulating in the room without difficulty. Denies any shortness of breath or MILLIGAN. Edema is better. No dizziness. Telemetry shows sinus rhythm rates generally in the 50s to 60s but sometimes in the 40s. Sodium up to 129. Review of Systems Constitutional: Constitutional: Reports no additional constitutional complaints ENT: Denies epistaxis Cardiovascular: Cardiovascular: Denies chest pain, Denies pedal edema, Denies leg edema and Denies lightheadedness Respiratory: Respiratory: Denies dyspnea and Denies dyspnea on exertion Gastrointestinal: Gastrointestinal: Denies abdominal pain Genitourinary: Genitourinary: Denies hematuria Musculoskeletal: Musculoskeletal: Reports no additional musculoskeletal complaints Integumentary/Breasts: Skin/Breast: Denies rash Neurologic: Reports system reviewed and no additional complaints, except as documented Psychiatric: Psychiatric: Reports anxiety Exam Const: General: comfortable and no acute distress HENMT: General nose exam: no epistaxis Eyes: EOM: EOMs intact bilaterally Neck: Neck: supple Resp: Effort & Inspection: normal respiratory effort Auscultation: rales (Scattered rales in the right lower lobe) Cardio: Rate: regular rate Rhythm: regular rhythm GI: GI Palp: Yes Soft to palpation and No Tenderness to palpation present (GI) Skin: General skin exam: normal color Neuro: Cognition (Neuro): normal cognition Speech: normal speech Extrem: General: no edema and no pedal edema Psych: Affect: Anxious affect present Objective Data Vital Signs Vital Signs: Vital Signs - 24 hr 12/23/20 08:00 12/23/20 08:55 12/23/20 10:00 Temperature 98.3 F Pulse Rate 132 H 106 H 75 Respiratory Rate 22 H Blood Pressure 121/85 Pulse Oximetry 97 12/23/20 12:1
[2020-12-24] MEDS: oxyCODONE HCL (*CRX) 5 MG TAB IR PO (09:16)
[2020-12-24] MEDS: CHOLECALCIFEROL 1,000 UNITS TABLET 2000 UNITS PO (09:17)
[2020-12-24] MEDS: METOPROLOL TARTRATE 50 MG TAB PO (09:17)
[2020-12-24] MEDS: lisinopriL 20 MG TABLET 40 MG PO (09:18)
[2020-12-24] MEDS: MAGNESIUM OXIDE 400 MG TABLET PO (09:18)
[2020-12-24] MEDS: predniSONE 2.5 MG TABLET PO ×2 (09:18→13:01)
[2020-12-24] MEDS: FOLIC ACID 1 MG TABLET PO (09:18)
--- NOTE | 2020-12-24 11:04 | PM.PNNEP ---
Progress Note: A&P Assessment and Plan (1) Hyponatremia: Code(s): E87.1 - Hypo-osmolality and hyponatremia Status: Acute Assessment and Plan: acute on chronic baseline sodium levels usually runs ~ 132 - 135 as far back as 2016 suspect chronic low sodium level due to chronic pain and need/use of narcotics acute hyponatremia presumably due mild CHF on admission worsened by diuresis/diuretic therapy TSH okay and cortisol lowish (but already on chronic steroids) follow-up on serum/urine osmolality, SPEP, UPEP, and kappa/lambda ratio diuretics on hold at this time increase fluid restriction to 1500cc/day since sodium dropped from 131 to 129 follow serial sodium levels (2) Atrial fibrillation with RVR: Code(s): I48.91 - Unspecified atrial fibrillation Status: Acute Assessment and Plan: s/p AVERY guided cardioversion (on 12/23/20) with return to R on anticoagulation Cardiology following (3) Acute diastolic CHF (congestive heart failure): Code(s): I50.31 - Acute diastolic (congestive) heart failure Status: Acute Assessment and Plan: euvolemic following aggressive diuresis follow volume status since diuretic currently on hold (4) HTN (hypertension): Code(s): I10 - Essential (primary) hypertension Status: Chronic Assessment and Plan: reasonable control follow trend of hemodynamics Will continue to follow - no opposed to discharge if otherwise medically stable; continue fluid restriction on discharge with repeat labs middle of next week. Subjective Date/time seen: 12/24/20 11:04 Status post AVERY and cardioversion yesterday afternoon and tolerated the procedure well (normal sinus rhythm achieved post-procedure); no apparent distress voiced at this time; no issues/events overnight or earlier this morning; feels reasonably well. Exam Narrative: General: Elderly female in NAD Heart: normal S1 and S2; no rub Lungs: clear to auscultation Abdomen: soft, nontender, nondistended, positive bowel sounds Extremities: no cyanosis or clubbing; no edema Skin: warm and dry Objective Data Vital Signs Vital Signs: Vital Signs Temp Pulse Resp BP Pulse Ox 12/24/20 09:17 65 12/24/20 08:00 36.5 C 53 L 14 121/64 95 12/24/20 04:00 36.5 C 52 L 18 113/63 91 12/24/20 00:00 36.6 C 65 16 125/71 97 12/23/20 20:28 72 12/23/20 20:00 37.4 C 64 18 131/61 99 12/23/20 18:00 74 12/23/20 16:00 36.2 C L 72 16 130/66 99 12/23/20 14:00 67 12/23/20 13:30 81 12/23/20 13:00 67 17 111/64 98 12/23/20 12:45 40 L 18 120/67 98 12/23/20 12:30 54 L 23 H 120/76 95 12/23/20 12:25 132 H 19 140/101 H 99 12/23/20 12:20 125 H 17 100/87 100 12/23/20 12:10 106 H 15 121/95 H 100 Intake/Output Intake/Output: Intake & Output 12/21/20 12/22/20 12/23/20 12/24/20 23:59 23:59 23:59 23:59 Intake Total 1680 290 200 480 Output Total 4175 2800 1150 250 Balance -1876 -2510 -950 230 Meds/Results Medications: Active Medications Generic Name Dose Route Start Last Admin Trade Name Freq PRN Reason Stop Dose Admin Hydrocodone Bitart/Acetaminophen 2 tab 12/19/20 18:30 12/24/20 02:16 Hydrocodone/Acetaminophen (*Crx) 5-325 Mg Tablet PO 2 tab Q4H PRN Administration Pain Rated 4-6 Diltiazem HCl 5 mg 12/21/20 16:29 12/22/20 22:18 Diltiazem Hcl Inj 25 Mg/5 Ml Vial IV PUSH 5 mg Q2H PRN Administration Tachycardia Folic Acid 1 mg 12/20/20 09:00 12/24/20 09:18 Folic Acid 1 Mg Tablet PO 1 mg BID JAYNA Administration Lisinopril 40 mg 12/20/20 09:00 12/24/20 09:18 Lisinopril 20 Mg Tablet PO 40 mg DAILY JAYNA Administration Magnesium Oxide 400 mg 12/22/20 09:00 12/24/20 09:18 Magnesium Oxide 400 Mg Tablet PO 400 mg DAILY JAYNA Administration Metoprolol Tartrate 50 mg 12/20/20 21:00 12/24/20 09:17 Metoprolol Tartrate 50 Mg Ta
--- NOTE | 2020-12-24 11:04 | P.PNNP_ITS ---
Progress Note: A&P Assessment and Plan (1) Hyponatremia: Code(s): E87.1 - Hypo-osmolality and hyponatremia Status: Acute Assessment and Plan: * acute on chronic * baseline sodium levels usually runs ~ 132 - 135 as far back as 2016 * suspect chronic low sodium level due to chronic pain and need/use of narcotics * acute hyponatremia presumably due mild CHF on admission worsened by diuresis/diuretic therapy * TSH okay and cortisol lowish (but already on chronic steroids) * follow-up on serum/urine osmolality, SPEP, UPEP, and kappa/lambda ratio * diuretics on hold at this time * increase fluid restriction to 1500cc/day since sodium dropped from 131 to 129 * follow serial sodium levels (2) Atrial fibrillation with RVR: Code(s): I48.91 - Unspecified atrial fibrillation Status: Acute Assessment and Plan: * s/p AVERY guided cardioversion (on 12/23/20) with return to NSR * on anticoagulation * Cardiology following (3) Acute diastolic CHF (congestive heart failure): Code(s): I50.31 - Acute diastolic (congestive) heart failure Status: Acute Assessment and Plan: * euvolemic following aggressive diuresis * follow volume status since diuretic currently on hold (4) HTN (hypertension): Code(s): I10 - Essential (primary) hypertension Status: Chronic Assessment and Plan: * reasonable control * follow trend of hemodynamics Will continue to follow - no opposed to discharge if otherwise medically stable; continue fluid restriction on discharge with repeat labs middle of next week. Subjective Date/time seen: 12/24/20 11:04 Status post AVERY and cardioversion yesterday afternoon and tolerated the procedure well (normal sinus rhythm achieved post-procedure); no apparent distress voiced at this time; no issues/events overnight or earlier this morning; feels reasonably well. Exam Narrative: General: Elderly female in NAD Heart: normal S1 and S2; no rub Lungs: clear to auscultation Abdomen: soft, nontender, nondistended, positive bowel sounds Extremities: no cyanosis or clubbing; no edema Skin: warm and dry Objective Data Vital Signs Vital Signs: Vital Signs Temp Pulse Resp BP Pulse Ox 12/24/20 09:17 65 12/24/20 08:00 36.5 C 53 L 14 121/64 95 12/24/20 04:00 36.5 C 52 L 18 113/63 91 12/24/20 00:00 36.6 C 65 16 125/71 97 12/23/20 20:28 72 12/23/20 20:00 37.4 C 64 18 131/61 99 12/23/20 18:00 74 12/23/20 16:00 36.2 C L 72 16 130/66 99 12/23/20 14:00 67 12/23/20 13:30 81 12/23/20 13:00 67 17 111/64 98 12/23/20 12:45 40 L 18 120/67 98 12/23/20 12:30 54 L 23 H 120/76 95 12/23/20 12:25 132 H 19 140/101 H 99 12/23/20 12:20 125 H 17 100/87 100 12/23/20 12:10 106 H 15 121/95 H 100 Intake/Output Intake/Output: Intake & Output 12/21/20 12/22/20 12/23/20 12/24/20 23:59 23:59 23:59 23:59 Intake Total 1680 290 200 480 Output Total 4173 2800 1150 250 Balance -2495 -2510 -950 230 Meds/Results Medications: Active Medications Generic Name Dose Route Start Last Admin Trade Name Freq PRN Reason Stop Dose Admin Hydrocodone Bitart/Acetaminophen 2 tab
--- NOTE | 2020-12-24 13:57 | PM.DS ---
DS: Admitting Diagnosis Discharge Date 12/24/20 Admitting Diagnosis afib rvr DS: Discharge Diagnosis Discharge Diagnosis (1) Hyponatremia: Code(s): E87.1 - Hypo-osmolality and hyponatremia Status: Acute Assessment and Plan: Patient's sodium was 125 on admission and dropped to 117 likely due to diuretics. -It is improving, 129 admission -she appears euvolemic now -pt has acute on chronic hyponatremia and close to baseline. repeat bmp next week and f/u with pcp -her normal sodium is usually 133-135 -Nephrology has been consulted, okay with d/c and follow up with pcp (2) Atrial fibrillation with RVR: Code(s): I48.91 - Unspecified atrial fibrillation Status: Acute Assessment and Plan: back to NSR after cardioversion 12/23/20 -she has been transitioned to Xarelto, [facility] has priced it and it will be around $60 and pt has agreed to this -patient states she has never had a history of atrial fibrillation although records do indicate that she has and she sees cardiology for this -echo without systolic dysfunction -cardiology has been consulted throughout her stay and they will follow up outpt (3) CHF (congestive heart failure): Qualifiers: Heart failure chronicity: acute on chronic Heart failure type: unspecified Qualified Code(s): I50.9 - Heart failure, unspecified Code(s): I50.9 - Heart failure, unspecified Status: Acute Assessment and Plan: Resolved -Acute CHF exacerbation was likely secondary to high-output failure. 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 Vitals in the ER were temperature 36.3? C, pulse 132, respiratory rate 18, blood pressure 141/94, or pulse ox 97 %. Patient was found to be in AFib RVR and likely had secondary heart failure due to that. Initial white blood cell count 9.5, hemoglobin 10.4, hematocrit 30.8, platelets 273. BMP showed hyponatremia 125. BNP 3990. Patient was admitted to the hospitalist service and started on IV Lasix 40 mg b.i.d.. Cardiology was consulted an echo was done. Echo showed EF of 55-60% and diastolic function could not be assessed. She did have some mild mitral valve regurg and moderate tricuspid valve regurg with no pulmonary hypertension. The patient continued to be tachycardic and was placed on various medications such as metoprolol and Cardizem. Ultimately, she had undergo a AVERY cardioversion 12/23/20 which restored her to normal sinus rhythm. Her medications were adjusted again as seen below. She was started on Xarelto for stroke prophylaxis. During her stay her sodium did worsen likely due to IV Lasix. She got down to 117 but did improve to 129 at discharge. She is going to follow up with her primary care physician in 1-2 weeks about this stay and get a repeat sodium drawn next week. She is also going to follow up with her warehouse hand. The day of discharge she was in normal sinus rhythm and was a bit bradycardic with no symptoms such as dizziness, lightheadedness or chest pain. She was receiving metoprolol tartrate 50 mg b.i.d. during hospitalization and she was transition to metoprolol succinate 50 mg daily (because of bradycardia). Her home metoprolol succinate 25 mg was discontinued and she will go home on 50 mg.
[2020-12-26 22:53] LABS: Osmolality, Urine 196 mOsm/kg (50-1200)
[2020-12-27 16:15] LABS: Creatinine, Random Urine 47 mg/dL (20-275); Total Protein/Creatinine Ratio 681 mg/g creat (21-161)
[2020-12-27 16:50] LABS: Albumin 3.1 g/dL (3.8-4.8); Alpha 1 Globulin 0.4 g/dL (0.2-0.3); Alpha 2 Globulin 0.7 g/dL (0.5-0.9); Beta 1 Globulin 0.4 g/dL (0.4-0.6); Gamma Globulin 0.7 g/dL (0.8-1.7); Protein, Total 5.6 g/dL (6.1-8.1)
[2020-12-27 19:15] LABS: Chloride Rand Ur <20 mmol/L (32-290); Creatinine Random Urine 46 mg/dL (20-275)
== END 2020-12-24 15:08 | disposition home health service (06) | DRG 308 ==
LOC: ANHED 16:02 → ANHIMU 20:02
PROVIDERS: Emergency Medicine; Internal Medicine Cardiovascular Disease; Internal Medicine Nephrology; Admitting Provider Family Medicine; Emergency Provider Emergency Medicine; PCP Emergency Medicine; Visit Provider Physician Assistant
PROC: B24BZZ4 Ultrasonography of Heart with Aorta, Transesophageal (ICD-10-PCS; CPT 93312; principal; 2020-12-23 12:15)
PROC: 5A2204Z Restoration of Cardiac Rhythm, Single (ICD-10-PCS; 2020-12-23 12:15)
DX: I48.91 Unspecified atrial fibrillation (principal); I50.31 Acute diastolic (congestive) heart failure; E87.1 Hypo-osmolality and hyponatremia; I48.92 Unspecified atrial flutter; I11.0 Hypertensive heart disease with heart failure; I50.83 High output heart failure; I08.1 Rheumatic disorders of both mitral and tricuspid valves; E87.6 Hypokalemia; R33.9 Retention of urine, unspecified; G89.4 Chronic pain syndrome; M06.9 Rheumatoid arthritis, unspecified; E55.9 Vitamin D deficiency, unspecified; Z79.899 Other long term (current) drug therapy; Z88.0 Allergy status to penicillin
CPT/HCPCS: 36415; 71046; 80048; 80069; 80076; 81050; 82436; 82533; 82570; 83735; 83880; 83930; 83935; 84155; 84156; 84165; 84166; 84295; 84300; 84443; 84484; 85014; 85018; 85025; 85027; 85610; 85730; 92960; 93005; 93306; 93312; 93320; 93325; 96372; 96374; 96375; 97110; 97116; 97161; 97165; 97535; 99285; A9270; J1650; J1940; J2250; J3010; J7040

== ENCOUNTER → 2021-03-27 01:01 | Outpatient (CLI) | payer MEDICARE, SELFPAY ==
[2021-03-27 21:23] LABS: SARS-CoV-2 RNA PCR Negative
== END ==
PROVIDERS: PCP Emergency Medicine; Visit Provider Plastic Surgery
DX: Z01.812 Encounter for preprocedural laboratory examination (principal); Z20.822 Contact with and (suspected) exposure to COVID-19
CPT/HCPCS: C9803; U0003; U0005

== ENCOUNTER 2021-03-30 01:09 | Day surgery (SDC) | payer MEDICARE, SELFPAY ==
[2021-03-28 15:44] VITALS: BMI 25.0
--- NOTE | 2021-03-28 15:55 | PC.NURSE ---
Report to the Outpatient Waiting Room, entrance under the green pavilion located off [facility], at time __0815 on date ___03/30/21____. OR Time: __1015 . - You and your visitor will be asked a series of questions to screen for COVID 19 for your protection. - A mask is required within the hospital. - Only one visitor is allowed at this time. Patient visitors will be guided where to wait when not with patient. Preoperative COVID Testing Requirements: No COVID Test needed if: (proof is required; if not received patient will have Rapid Test prior to entry) - Patient has received COVID Vaccine at least 14 days prior to procedure date or - Patient has positive COVID test result within last 90 days of surgery date. COVID Test needed if above criteria is not met If not COVID vaccinated a COVID test must be conducted within 72 hours of surgery and patient is asked to isolate self from time of testing until procedure. You will go to the [employer] [facility] for your COVID testing. The [employer] [facility] Testing site is located at the corner of [address] from [facility]. You will only be called if COVID results are positive and your surgeon may reschedule your elective surgery date. Patients may have clear liquids (water, carbonated beverages, clear teas, apple juice) until 3 hours prior to surgery with a maximum of 20 ounces. - No food from midnight until time of surgery - Infants may have breast milk until 4 hours before surgery, infant formula 6 hours prior to surgery. - Children will be allowed to drink immediately following surgery. If applicable, please bring a bottle or sippy cup to assist with drinking. Juice, water, soda, and popsicles are readily available. For infants on formula, please bring formula the day of surgery. Pacifiers are allowed. Take the following medications with a SIP of water the morning of surgery: _METOPROLOL, PAIN PILL____ Medications to discontinue per physician __ASPIRIN PER DR. HOLBROOK - PT MAY REMAIN ON XARELTO Date to take last dose____03/28/21 FOR VITAMINS/SUPPLEMENTS Please no make-up, nail [place], hairspray, perfume, deodorant, or body powder the day of surgery. No jewelry (including any body piercings) or valuables the day of surgery, leave them at home. Please take a shower or bath the night before, or the morning of, surgery with an antibacterial soap. Wear comfortable, loose fitting clothing. Children are encouraged to wear pajamas. - Jewelry must be removed prior to entering the operating room. Rings and piercings that are not removed may be cut off. - The hospital will not accept responsibility for valuables. - Please leave all valuables, including medications, at home the day of surgery. If you are going home after surgery, a licensed truck driver's offsider must drive you home. - NO public transportation without another adult. - We recommend that an adult stay with you for 24 hours following discharge. - We also recommend that you do not drive, make important decision, drink alcoholic beverages, or take any drugs that were not prescribed by your health care provider for at least 24 hours after your discharge time. For Pediatric surgeries, we recommend two adults accompany the child home (only one inside the building at this time). Follow any additional instructions given to you from your surgeon. Telephone instructions given to ____PT and asked if any additional questions and then verbalized understanding. Patient advised to call surgeon office or pre surgery nurse liaison [phone] if any additional questions.
[2021-03-30] MEDS: LACTATED RINGERS 1,000 ML 30 ML IV CONT ×2 (08:50→12:00)
[2021-03-30 09:05] VITALS: BP 197/73; PULSE 58; RESP 20; TEMP 37.2; O2SAT 98; BMI 23.2
--- NOTE | 2021-03-30 09:39 | WPDANESEPPF ---
Anes - Initial Pre Proc Eval Procedure: Operation Date: 03/30/21 10:15 Proposed Procedures p Excision Ulcerated Neoplasm Upper Mid Back - Erlin Paz MD Date/Time: 03/30/21 09:39 Surgeon: Erlin Paz MD Pre Op Diagnosis: Ulcerated Neoplasm Upper Mid Back Patient Data Age: 80 Gender: F Height: 1.65 m Weight: 63.4 kg Last Vital Signs Temp 37.2 C 03/30/21 09:05 Pulse 58 L 03/30/21 09:05 Resp 20 03/30/21 09:05 BP 197/73 H 03/30/21 09:05 Pulse Ox 98 03/30/21 09:05 Allergies Allergy/AdvReac Type Severity Reaction Status Date / Time Penicillins Allergy Unknown Unknown- Verified 03/30/21 08:26 A CHILD Home Medications Medication Instructions Recorded Confirmed Type oxycodone-acetaminophen 10 mg-325 1 tablet PO Q8H PRN 10/21/20 03/30/21 History mg tablet folic acid 1 mg tablet 1 mg PO BID #180 tablet 11/16/20 03/30/21 Rx Calcitrate-Vitamin D 2,000 caplet BYMOUTH DAILY 12/19/20 03/30/21 History lisinopril 40 mg PO DAILY 12/19/20 03/30/21 History aspirin 81 mg PO DAILY #30 tablet 12/24/20 03/30/21 Rx methotrexate sodium 2.5 mg tablet 7.5 mg PO WEEKLY #24 tablet 01/06/21 03/28/21 Rx metoprolol succinate 50 mg 50 mg PO QAM #90 tablet 01/16/21 03/30/21 Rx tablet,extended release 24 hr rivaroxaban 20 mg tablet 20 mg PO DAILY@1800 #90 tablet 01/16/21 03/30/21 Rx Patient hx anesthesia problems: none Family hx anesthesia problems: none Results Review: All pre-operative results and documents have been reviewed as part of the pre-operative evaluation. [facility] Past Medical History Medical History Chronic pain Essential hypertension Mitral valve regurgitation Moderate pulmonary hypertension Osteoporosis Paroxysmal atrial fibrillation (06/2015) Rheumatoid arteritis Spinal stenosis Vitamin D deficiency disease Surgical History Surgical History Atrial fibrillation status post cardioversion (06/2015) Family History Family History Sibling Hypertension Diabetes mellitus Sibling Lung cancer Sibling Esophageal cancer Sibling Colon cancer Social History Social History Social History: She has been since January 2020. She lives alone. She has 2 children who live nearby. 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 She ambulates with a walker. She used to occasionally drink a couple of beers a week but has not done so in many years. She is a lifelong nonsmoker. Primary care physician: Dr. Celio Calle Code status: Full code per EMR. However, the patient reports that she does not think she would want cardiac resuscitation or intubation but she needs to discuss this with her son and daughter. Smoking status: Never smoker Second hand tobacco smoke exposure: No Alcohol intake: former Drinks per week: 2 Substance use: never Substance use type: does not use Living arrangements: alone Spiritual care concerns: No Anes - Eval Final PreProcedure Day of Procedure 03/30/21 09:39 Patient weight: normal Heart: regular rate and rhythm Lungs: clear to auscultation Airway: Mallampati scale class II Neurological: other (alert) Last oral intake: >/= 8 hours ASA classification: III Emergent: no Anesthetic plan: proceed Anesthesia type and monitoring: general GIVS and standard monitoring Results Review: All pre-operative results and documents have been reviewed as part of the pre-operative evaluation. Informed Consent: The patient's anesthetic plan and its attendant risks and benefits were discussed with the patient/family/POA. Questions were solicited and answers provided to the satisfaction of the patient/family/POA.
--- NOTE | 2021-03-30 09:42 | SUR.PREOP ---
[address] HOLBROOK IS RUNNING ABOUT 1/2 HR BEHIND - UNDERSTANDING VOICED. PT DENIES NEEDS.
--- NOTE | 2021-03-30 10:57 | WPDHPUPDATE1 ---
History and Physical Update Update Date/Time: 03/30/21 10:57 History and Physical has been reviewed, including an updated exam of the patient. There are NO changes in the patient's condition. Risks, benefits, and alternatives have been discussed and questions answered. Patient agrees to proceed with procedure.
[2021-03-30] MEDS: LIDO 1%/EPINEPHRINE 1:100,000 50 ML VIAL 12 ML INFILTRATE (11:02)
[2021-03-30] MEDS: BACITRACIN OINTMENT 15 GM TUBE 1 APPLIC TOPICAL (11:02)
[2021-03-30] MEDS: ceFAZolin SODIUM 1 GM VIAL IV PUSH (11:18)
[2021-03-30 12:00] VITALS: BP 167/69; PULSE 57; RESP 12; O2SAT 98
--- NOTE | 2021-03-30 12:22 | P.OP_ITS ---
Procedure Note - Detailed Date of Procedure 03/30/21 Pre-op Diagnosis Ulcerated Neoplasm Upper Mid Back Post-op Diagnosis same Procedure Performed 4 cm excision of ulcerated neoplasm of the upper mid back with intermediate repair 7 cm Surgeon Erlin Paz MD Anesthesia MAC Description of Procedure The site on the patient's upper back was marked in the holding area. She is taken to the operating room where she was placed supine on the operating table. She was given IV sedation and an LMA was placed. She was then turned to her right side. Pressure points were padded and she was stabilized in that position. The back was prepped and draped in usual fashion. The margins of the lesion were marked for excision. The area was widely infiltrated with 1% lidocaine with epinephrine. The oval ellipse was excised through skin and subcutaneous tissue down to the level of the deep fascia. The specimen was taken off the deep fascia. It was not marked for orientation and was not sent for frozen section. The the margin of the wound was dissected over a cm in all directions to allow coaptation with least amount of tension. The wound was closed with 2-0 Vicryl suture in the superficial fascia and the deep dermis. The skin was closed with glue. The gauze bandage with Tegaderm was applied to the surface. She was discharged from the operating room in stable condition. The patient was discharged with instructions in wound care and follow-up. These were specifically explain to her son who helps her commercial real estate sales manager healthcare home. She will be restarted on her prednisone tomorrow evening. Estimated Blood Loss 5 Drains No Packing No Pathology yes Complications No immediate complications Condition stable Disposition same day
[2021-03-30 12:30] VITALS: BP 171/65; PULSE 63; RESP 12
[2021-03-30 13:00] VITALS: BP 144/70; PULSE 64; RESP 12
== END 2021-03-30 13:10 | disposition home or self-care (01) ==
PROVIDERS: PCP Emergency Medicine; Visit Provider Plastic Surgery
PROC: (CPT 11604; principal; 2021-03-30 10:15)
DX: C44.529 Squamous cell carcinoma of skin of other part of trunk (principal); I10 Essential (primary) hypertension; I34.0 Nonrheumatic mitral (valve) insufficiency; I48.0 Paroxysmal atrial fibrillation; M06.9 Rheumatoid arthritis, unspecified; E55.9 Vitamin D deficiency, unspecified; M81.0 Age-related osteoporosis without current pathological fracture; I27.20 Pulmonary hypertension, unspecified; G89.29 Other chronic pain; Z79.01 Long term (current) use of anticoagulants; Z79.82 Long term (current) use of aspirin; Z79.891 Long term (current) use of opiate analgesic
CPT/HCPCS: 11604; 12032; 88305; A9270; J0690; J2704; J7120

== ENCOUNTER 2021-05-29 10:51 | Outpatient (CLI) | payer MEDICARE, SELFPAY ==
--- NOTE | ~2021-05-29 | MR_ITS ---
EXAMINATION: MR lumbar spine wo [facility] EXAM DATE: 05/29/2021 11:37 INDICATION: Low back pain. Osteoporosis. Bilateral leg weakness. TECHNIQUE: Multi-sequential, multiplanar MR images of the lumbar spine were obtained without contrast . Sagittal T1, T2, T2 fat saturation images. Axial T2 weighted images. Comparison is made to prior examination from 04/11/2017. FINDINGS: Chronic burst fractures from T11-L3, with severe loss of the L1 vertebral body height in it s anterior and middle aspect, about 6 mm retropulsion, appearance unchanged compared to 2018. The L2 and L3 burst fractures have been treated with methylmethacrylate, moderate at the L2 level and mild t o moderate at the L3 level. There are mild chronic compression fractures of L4 and L5. Mild to modera te burst fractures of T11 and T12 have developed compared to 2018 but without edema, consistent with chronic age. T8 and T9 mild to moderate chronic burst fractures. The conus medullaris terminates at t he L2 level and has normal signal intensity and morphology. There is moderate loss of the disc heigh t at L4-5 and L5-S1. No significant subluxation. Paraspinal soft tissue is unremarkable. Level by level evaluation: T10-11: There is a mild diffuse disc bulge. Facet arthropathy: Mild to moderate. Neural foraminal stenosis: No stenosis. Central canal stenosis: No stenosis. T11-12: There is a mild diffuse disc bulge. Facet arthropathy: Mild to moderate. Neural foraminal stenosis: No stenosis. Central canal stenosis: Minimal. T12-L1: There is a moderate diffuse disc bulge including bulging L5 superior endplate (unchanged). Facet arthropathy: Mild. Neural foraminal stenosis: No stenosis. Central canal stenosis: Mild to moderate. L1-L2: There is a mild diffuse disc bulge. Facet arthropathy: Mild. Neural foraminal stenosis: No stenosis. Central canal stenosis: No stenosis. L2-L3: There is a mild diffuse disc bulge. Facet arthropathy: Mild to moderate . Ligamentum flavum enlargement. Neural foraminal stenosis: Mild to moderate right. Central canal stenosis: Mild. L3-L4: There is a mild diffuse disc bulge. Facet arthropathy: Mild to moderate. Neural foraminal stenosis: Mild right. Central canal stenosis: No stenosis. L4-L5: There is a mild diffuse disc bulge. Facet arthropathy: Mild to moderate. Neural foraminal stenosis: Mild bilateral. Central canal stenosis: No stenosis. L5-S1: There is a mild diffuse disc bulge. Facet arthropathy: Moderate. Neural foraminal stenosis: Mild left. Central canal stenosis: No stenosis. IMPRESSION: 1. Numerous chronic appearing burst and compression fractures. 2. Mild to moderate arthropathy. Reviewed, dictated and finalized at location A. MACY ACCOUNT DIRECTOR
== END 2021-05-29 10:52 | disposition home or self-care (01) ==
LOC: ANHIMG 10:53
PROVIDERS: PCP Emergency Medicine; Visit Provider Internal Medicine Rheumatology
DX: M54.50 Low back pain, unspecified (principal); S32.001A Stable burst fracture of unspecified lumbar vertebra, initial encounter for closed fracture; M12.88 Other specific arthropathies, not elsewhere classified, other specified site
CPT/HCPCS: 72148

== ENCOUNTER 2021-06-06 10:06 | Emergency (ER) | payer MEDICARE, SELFPAY ==
[2021-06-06] VITALS (40 sets, daily range): BP systolic 145–180; BP diastolic 60–99; PULSE 40–53; RESP 12–26; TEMP 36.7; O2SAT 90–100
--- NOTE | ~2021-06-06 | XR_ITS ---
EXAMINATION: XR chest 2V DATE: 06/06/2021 12:20 INDICATION: Congestive heart failure exacerbation. TECHNIQUE: Frontal and lateral views of the chest were obtained. COMPARISON: Chest 2 views 12/19/2020 FINDINGS: There is mild atelectasis versus scarring at the lung bases. There are tiny pleural effusio ns. No pneumothorax. Cardiomegaly is noted. There are multiple chronic vertebral body fractures in th e spine. There are changes of vertebroplasty at 2 levels. IMPRESSION: 1. Mild atelectasis versus scarring at the lung bases. 2. Tiny pleural effusions. 3. Cardiomegaly. Reviewed, dictated and finalized at location A.
--- NOTE | 2021-06-06 10:10 | ECG_ITS ---
Measurements Intervals Winfred Rate: 46 P: 94 VT: 169 QRS: -38 QRSD: 124 T: 137 QT: 503 QTc: 442 Interpretive Statements SINUS BRADYCARDIA WITH OCCASIONAL SUPRAVENTRICULAR PREMATURE COMPLEXES MARKED LEFT AXIS DEVIATION [QRS AXIS < -30] LEFT VENTRICULAR HYPERTROPHY AND ST-T CHANGE [VOLTAGE CRITERIA PLUS ST/T ABNORMALITY] POSSIBLE LATERAL MYOCARDIAL INFARCTION , OF INDETERMINATE AGE [30 ms Q WAVE IN I/aVL/V5/V6] COMPARED TO ECG 12/23/2020 12:37:59 PATIENT NOW HAS U WAVES. CONSIDER ELECTROLYTE IMBALANCE OR DRUG EFFECT. Electronically Signed On 06-06-2021 18:35:30 CDT by Dominga Hawley M.D.
--- NOTE | 2021-06-06 10:18 | PC.NURSE ---
EDP at bedside to assess pt.
[2021-06-06 10:28] LABS: Basophils Percent Auto 0.1 % (0.2-1.2); Eosinophils Percent Auto 0.1 % (0-4.4); Hematocrit 32.3 % (37.0-47.0); Hemoglobin 10.4 g/dL (12.0-15.0); Immature Granulocyte Absolute 0.03 K/mm3 (0.00-0.031); Immature Granulocyte Percent A 0.4 % (0-0.5); Lymphocytes Absolute Auto 0.77 K/mm3 (0.9-3.2); Lymphocytes Percent Auto 11.1 % (18.3-44.2); Mean Corpuscular HGB Conc 32.2 g/dl (32-36); Mean Corpuscular Hemoglobin 29.9 pg (26-34); Mean Corpuscular Volume 92.8 fl (80-100); Mean Platelet Volume 9.6 fl (7.4-10.4); Monocytes Absolute Auto 0.3 K/mm3 (0.1-0.6); Monocytes Percent Auto 4.7 % (2.6-8.5); Neutrophils Absolute Auto 5.8 K/mm3 (1.3-6.7); Neutrophils Percent Auto 83.6 % (45.5-73.1); Platelet Count Result 312 k/mm3 (150-375); Red Blood Count 3.48 M/mm3 (4.2-5.4)
--- NOTE | 2021-06-06 10:47 | ED.EXTPRO ---
HPI - Extremity Problem General Chief complaint: Extremity Problem,Nontraumatic Stated complaint: Bilateral Leg Swelling Time Seen by Provider: 06/06/21 10:10 Source: patient Mode of arrival: ambulatory Limitations: no limitations History of Present Illness HPI Narrative: Pt is an 80 y/o female, PMHx of CHF, presents to ED via POV with C/O BLE edema, for the past two weeks, without injuries. She contacted her knitting tester, who advised her to start furosemide for the past 3 days, which she feels has improved her swelling. She has a FU appointment on with her knitting tester's office but notes her son didn't want to wait to have her legs evaluated. She does report blistering and oozing from BLE for the past several days and the LLE has a tender area where her rash has changed color. She denies any additional associated symptoms, including CP, SOB, abdominal pain, NVDC or urinary discomfort. NO other modifying factors have been attempted. Complaint: extremity swelling Onset (ago): week(s) (2) Pain Consistency: intermittent Location: left, right and lower extremity Quality: aching Radiation: none Relieving factors: nothing Exacerbating factors: nothing Associated symptoms: denies other symptoms Related Data Home Medications Medication Instructions Recorded Confirmed oxycodone-acetaminophen 10 mg-325 1 tablet PO Q8H PRN 10/21/20 05/17/21 mg tablet Calcitrate-Vitamin D 2,000 caplet BYMOUTH DAILY 12/19/20 05/17/21 lisinopril 40 mg PO DAILY 12/19/20 05/17/21 amlodipine 10 mg tablet 10 mg PO DAILY 05/08/21 05/17/21 prednisone 2.5 mg PO DAILY 06/06/21 Allergies Allergy/AdvReac Type Severity Reaction Status Date / Time Penicillins Allergy Unknown Unknown- Verified 05/17/21 14:21 A CHILD Review of Systems Constitutional: Constitutional: Reports no additional constitutional complaints Musculoskeletal: Musculoskeletal: Reports as per HPI Integumentary/Breasts: Skin/Breast: Reports as per HPI PMFSH Past Medical History Medical History Acute bilateral low back pain without sciatica Acute idiopathic gout of left hand Bilateral hip pain Body mass index [BMI] 22.0-22.9, adult (08/29/15) Body mass index [BMI] 25.0-25.9, adult (07/01/15) Body mass index [BMI] 26.0-26.9, adult (02/01/15) Chronic pain Essential hypertension Frequent falls Mitral valve regurgitation Moderate pulmonary hypertension New onset a-fib Osteoporosis Paroxysmal atrial fibrillation (06/2015) Rheumatoid arteritis Spinal stenosis Vitamin D deficiency disease Weight loss Surgical History Surgical History Atrial fibrillation status post cardioversion (06/2015) Family History Family History Sibling Hypertension Diabetes mellitus Sibling Lung cancer Sibling Esophageal cancer Sibling Colon cancer Social History Social History Social History: She has been since January 2020. She lives alone. She has 2 children who live nearby. 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 She ambulates with a walker. She used to occasionally drink a couple of beers a week but has not done so in many years. She is a lifelong nonsmoker. Primary care physician: Dr. Celio Calle Code status: Full code per EMR. However, the patient reports that she does not think she would want cardiac resuscitation or intubation but she needs to discuss this with her son and daughter. Smoking status: Never smoker Second hand tobacco smoke exposure: No Alcohol intake: former Drinks per week: 2 Substance use: never Substance use type: does not use Spiritual care concerns: No Exam Const: General: no acute distress and alert Orientation/conscious
[2021-06-06 10:55] LABS: Alanine Aminotransferase 36 U/L (4-35); Albumin Level 3.8 g/dL (3.5-5.1); Alkaline Phosphatase 88 U/L (38-126); Anion Gap 6 mmol/L (8-16); Aspartate Amino Transferase 43 U/L (14-36); Bilirubin,Total 1.1 mg/dL (0.2-1.3); Blood Urea Nitrogen 19 mg/dL (7-17); Carbon Dioxide 30 mmol/L (22-30); Chloride 92 mmol/L (98-107); Estimated CRCL calculation 37 ml/min; Estimated Glomerular Filt Rate 60; Glucose 137 mg/dL (65-110); Potassium 3.3 mmol/L (3.4-5.0); Sodium 128 mmol/L (137-145)
[2021-06-06 11:03] LABS: Partial Thromboplastin Time 37.7 SECONDS (22.3-36.8); Prothrombin Time 21.8 Seconds (11.1-14.7)
[2021-06-06 11:07] LABS: NT Pro B Type Natriuretic Pept 2610 pg/mL (5-100); Troponin I 0.031 ng/mL (0.000-0.034)
[2021-06-06] MEDS: FUROSEMIDE INJ 100 MG/10 ML VIAL 80 MG IV PUSH (11:21)
[2021-06-06] MEDS: POTASSIUM CHLORIDE 20 MEQ PACKET (FOR LIQUID) 40 MEQ PO (11:21)
[2021-06-06] MEDS: oxyCODONE/ACETAMINOPHEN (*CRX) 5-325 MG TABLET 1 TABLET PO (12:33)
--- NOTE | 2021-06-06 12:58 | PC.NURSE ---
Spoke with patient's so, Jason, and provided updates. Jason Levy [phone]
== END 2021-06-06 16:15 | disposition home or self-care (01) ==
PROVIDERS: Emergency Medicine; Emergency Provider Nurse Practitioner Family; PCP Emergency Medicine
DX: I11.0 Hypertensive heart disease with heart failure (principal); I50.9 Heart failure, unspecified; L98.499 Non-pressure chronic ulcer of skin of other sites with unspecified severity; I34.0 Nonrheumatic mitral (valve) insufficiency; I27.20 Pulmonary hypertension, unspecified; M81.0 Age-related osteoporosis without current pathological fracture; I48.0 Paroxysmal atrial fibrillation; M06.9 Rheumatoid arthritis, unspecified; E55.9 Vitamin D deficiency, unspecified; Z79.01 Long term (current) use of anticoagulants; Z79.82 Long term (current) use of aspirin; R94.31 Abnormal electrocardiogram [ECG] [EKG]; I49.1 Atrial premature depolarization; I51.7 Cardiomegaly
CPT/HCPCS: 36415; 51702; 71046; 80053; 83880; 84484; 85025; 85610; 85730; 93005; 96374; 99284; A9270; J1940

== ENCOUNTER 2021-06-28 09:30 | Outpatient (RCR) | payer MEDICARE, SELFPAY ==
[2021-06-12 10:30] VITALS: BMI 26.0
--- NOTE | 2021-06-19 14:19 | PCWOUND ---
WOCN NOTE Patient was seen on Saturday06/12/21 for superficial wound on left lower leg. Patient calls today yelling I want to know why you stuck a piece of cardboard into my varicose vein and made it bleed . Explained to patient that I do not and would not have stuck a piece of cardboard into her leg. Patient kept telling me I was wrong and then we kept sticking the cardboard into her leg and pulling it off and stuck into her vein and made it bleed and then told her to go home and cover it with a bandaid. I tried to calm patient down and explain that I do not use cardboard and would not have stuck anything into a vein to make it bleed. Patient hung up on me.
== END 2021-09-10 23:59 | disposition home or self-care (01) ==
LOC: ANHWOC 09:30
PROVIDERS: PCP Emergency Medicine; Visit Provider Internal Medicine Cardiovascular Disease
DX: S70.322D Blister (nonthermal), left thigh, subsequent encounter (principal)
CPT/HCPCS: 99212; G0463

== ENCOUNTER 2021-08-09 14:00 | Outpatient (CLI) | payer MEDICARE, SELFPAY ==
--- NOTE | ~2021-08-09 | DEXA_ITS ---
Bone Density Report Name: PAPI DENISE Age: 80 Sex: Female Ethnicity: White Date of : 1940 Indication: postmenopausal; screening for osteoporosis; height loss; rheumatoid arthritis; Referring Provider: JEREMIAH PATTERSON MD Study: Bone densitometry was performed. Exam Date: August 09, 2021 Accession number: [id number] Bone Density: Region BMD T-score Z-score Classification AP Spine(L4) 0.723 -3.1 -0.1 Osteoporosis Femoral Neck (Left) 0.408 -4.0 -1.5 Osteoporosis Total Hip (Left) 0.331 -5.0 -2.8 Osteoporosis Femoral Neck (Right) 0.337 -4.6 -2.2 Osteoporosis Total Hip (Right) 0.417 -4.3 -2.1 Osteoporosis Total Hip Mean 0.374 -4.7 -2.5 Osteoporosis World Health Organization criteria for BMD impression classify patients as: Normal (T-score at or above -1.0), Osteopenia (T-score between -1.0 and -2.5), or Osteoporosis (T-score at or below -2.5). 10-year Fracture Risk: FRAX not reported because: Some T-score for Spine Total or Hip Total or Femoral Neck at or below -2.5 Clinical Information Provided by Patient: Has rheumatoid arthritis Has used the following medications: Vitamin D Patient maximum height was 67 Menopause Age: 43 No regular weight bearing exercise Onset of menses at age 12 Number of children 3 Impression: The patient has osteoporosis, based on the Left Total Hip T-score. Discussion: HIGH RISK OF FRACTURE. BONE DENSITY IS UNDESIRABLY LOW AT ONE OR MORE SKELETAL SITES, CONSISTENT WITH OSTEOPOROSIS. ALSO, BONE DENSITY IS LOWER THAN EXPECTED FOR AGE AND SEX AT ONE OR MORE SKELETAL SITES; RECOMMEND A DILIGENT SEARCH FOR SECONDARY CAUSES OF BONE LOSS. This patient's lowest T-score meets the World Health Organization's (WHO) criteria for osteoporosis at one or more sites (T-score -2.5 or below). In untreated patients, the risk of osteoporotic fracture increases approximately two-fold for each 1.0 SD decrease in T-score. Low bone density is not the only risk factor for fracture; also consider factors such as patient's age, frailty or poor health, risk of falling, risk of injury, previous osteoporotic fracture, family history of osteoporosis, cigarette smoking, low body weight, etc. Not everyone with low bone mineral density has osteoporosis; osteomalacia and other metabolic bone disorders should also be considered. Patients who have osteoporosis should be evaluated for specific diseases and conditions (secondary causes) that may cause or contribute to bone loss. The [place] [employer] Endocrinologists (AACE) and National Osteoporosis Foundation (NOF) recommend pharmacologic intervention for all postmenopausal women whose T-score is in this range. Also, this patient's bone mineral density is below the range considered normal for healthy age-, sex-, and race-matched controls at [facility]
== END 2021-08-09 14:01 | disposition home or self-care (01) ==
LOC: ANHIMG 14:01
PROVIDERS: PCP Emergency Medicine; Visit Provider Internal Medicine Rheumatology
DX: M81.0 Age-related osteoporosis without current pathological fracture (principal)
CPT/HCPCS: 77080

== ENCOUNTER 2021-10-12 12:02 | Outpatient (CLI) | payer MEDICARE, SELFPAY ==
[2021-10-12 12:37] LABS: Anion Gap 4 mmol/L (8-16); Blood Urea Nitrogen 11 mg/dL (7-17); Calcium 9.8 mg/dL (8.4-10.2); Carbon Dioxide 30 mmol/L (22-30); Chloride 96 mmol/L (98-107); Estimated Glomerular Filt Rate > 60; Glucose 95 mg/dL (65-110); Potassium 4.1 mmol/L (3.4-5.0); Sodium 130 mmol/L (137-145)
== END 2021-10-12 12:03 | disposition home or self-care (01) ==
PROVIDERS: PCP Emergency Medicine; Visit Provider Internal Medicine Cardiovascular Disease
DX: M25.471 Effusion, right ankle (principal); M25.472 Effusion, left ankle
CPT/HCPCS: 36415; 80048

== ENCOUNTER 2021-10-19 09:49 | Outpatient (CLI) | payer MEDICARE, SELFPAY ==
--- NOTE | ~2021-10-19 | US_ITS ---
EXAMINATION: US art doppler w press LE BI DATE: 10/19/2021 15:55 CDT INDICATION: Ulcer of the left lower extremity TECHNIQUE: Segmental pressures and plethysmographic and Doppler waveforms of the brachial and lower e xtremity arteries were obtained. COMPARISON: No prior studies for comparison. . FINDINGS: Right and left brachial artery pressures of 185 mm Hg and 186 mm Hg, respectively, are concordant (no rmal difference <= 30 mmHg). The right high-thigh pressure index is 0.87 (normal > 1.2). The right ankle-brachial index (MARGAUX) coul d not be obtained. The patient unable to withstand pressure for measurement. The right great toe-brac hial index (TBI) is 0.54 (normal >= 0.60). The left high-thigh pressure index is 0.7. The left MARGAUX is 1.07. The left TBI is 0.54. IMPRESSION: 1. Limited study. Patient unable to tolerate pressures in the left leg at the ankle and above the kne e as well as the right high thigh pressure. Right MARGAUX could not be performed. Mildly diminished bilat eral toe brachial indices, consistent with peripheral arterial disease. 2: Normal left MARGAUX. Reviewed, dictated and finalized at location A. IMPRESSION: 1. Limited study. Patient unable to tolerate pressures in the left leg at the a nkle and above the knee as well as the right high thigh pressure. Right MARGAUX cou ld not be performed. Mildly diminished bilateral toe brachial indices, consiste nt with peripheral arterial disease. 2: Normal left MARGAUX.
== END 2021-10-19 09:50 | disposition home or self-care (01) ==
LOC: ANHIMG 09:54
PROVIDERS: PCP Emergency Medicine; Visit Provider Internal Medicine Cardiovascular Disease
DX: L97.921 Non-pressure chronic ulcer of unspecified part of left lower leg limited to breakdown of skin (principal); R09.89 Other specified symptoms and signs involving the circulatory and respiratory systems
CPT/HCPCS: 93923

== ENCOUNTER 2021-12-06 15:12 | Outpatient (CLI) | payer MEDICARE, SELFPAY ==
[2021-12-06 15:41] LABS: Basophils Percent Auto 0.4 % (0.2-1.2); Eosinophils Percent Auto 0.8 % (0-4.4); Hematocrit 33.3 % (37.0-47.0); Hemoglobin 11.1 g/dL (12.0-15.0); Immature Granulocyte Absolute 0.01 K/mm3 (0.00-0.031); Immature Granulocyte Percent A 0.2 % (0-0.5); Lymphocytes Absolute Auto 1.16 K/mm3 (0.9-3.2); Lymphocytes Percent Auto 23.3 % (18.3-44.2); Mean Corpuscular HGB Conc 33.3 g/dl (32-36); Mean Corpuscular Hemoglobin 30.7 pg (26-34); Mean Corpuscular Volume 92.2 fl (80-100); Mean Platelet Volume 8.6 fl (7.4-10.4); Monocytes Absolute Auto 0.4 K/mm3 (0.1-0.6); Monocytes Percent Auto 8.4 % (2.6-8.5); Neutrophils Absolute Auto 3.3 K/mm3 (1.3-6.7); Neutrophils Percent Auto 66.9 % (45.5-73.1); Platelet Count Result 225 k/mm3 (150-375); Red Blood Count 3.61 M/mm3 (4.2-5.4); Red Cell Distribution Width 13.8 % (11.5-14.5)
[2021-12-06 15:54] LABS: Alanine Aminotransferase 12 U/L (6-35); Alkaline Phosphatase 103 U/L (38-126); Anion Gap 9 mmol/L (8-16); Aspartate Amino Transferase 19 U/L (14-36); Bilirubin,Total 0.6 mg/dL (0.2-1.3); Blood Urea Nitrogen 10 mg/dL (7-17); Calcium 9.7 mg/dL (8.4-10.2); Carbon Dioxide 24 mmol/L (22-30); Chloride 92 mmol/L (98-107); Estimated Glomerular Filt Rate > 60; Glucose 104 mg/dL (65-110); Sodium 125 mmol/L (137-145)
== END 2021-12-06 15:13 | disposition home or self-care (01) ==
PROVIDERS: PCP Emergency Medicine; Referring Provider Internal Medicine Rheumatology; Visit Provider Internal Medicine Rheumatology
DX: Z51.81 Encounter for therapeutic drug level monitoring (principal); Z79.899 Other long term (current) drug therapy
CPT/HCPCS: 36415; 80048; 80076; 85025

== ENCOUNTER 2021-12-21 14:10 | Outpatient (CLI) | payer MEDICARE, SELFPAY ==
--- NOTE | ~2021-12-21 | XR_ITS ---
XR knee LT 2V 12/21/2021 14:48 Indication: Knee pain Procedure: 2 views left knee Comparison: 01/02/2018 Findings: There is severe osteoarthritis, most advanced in the medial joint space. Osteopenia. No fra cture. There is atherosclerosis. No significant joint effusion. There is mild varus angulation. Mild lateral subluxation of the tibia. Impression: 1: Severe osteoarthritis of the left knee with mild varus angulation. Reviewed, dictated and finalized at location B. Impression: 1: Severe osteoarthritis of the left knee with mild varus angulation.
--- NOTE | ~2021-12-21 | XR_ITS ---
XR knee RT 2V 12/21/2021 14:48 Indication: Right knee pain Procedure: 2 views right knee Comparison: No prior studies for comparison. Findings: There is moderate-severe tricompartment osteoarthritis, most advanced in the lateral joint space. Osteopenia. No significant joint effusion. No fracture or traumatic malalignment. There is ath erosclerosis. Impression: 1: Moderate-severe tricompartment osteoarthritis of the right knee. Reviewed, dictated and finalized at location B. Impression: 1: Moderate-severe tricompartment osteoarthritis of the right knee.
== END 2021-12-21 14:11 ==
LOC: MICIMG 14:13
PROVIDERS: PCP Emergency Medicine; Visit Provider Nurse Practitioner Family
DX: M17.0 Bilateral primary osteoarthritis of knee (principal)
CPT/HCPCS: 73560

== ENCOUNTER 2022-10-02 18:12 | Inpatient (IN) | payer MEDICARE, SELFPAY ==
--- NOTE | ~2022-10-02 | XR_ITS ---
EXAMINATION: XR ankle LT min 3V DATE: 10/02/2022 22:10 INDICATION: Left ankle pain. TECHNIQUE: 3 views of left ankle were obtained. COMPARISON: None. FINDINGS: Bone alignment is normal. No fracture. There is mild midfoot osteoarthritis. There is diffu se osteopenia. There are enthesophytes at the posterior and plantar aspects of calcaneal tuberosity. Ankle soft tissue swelling is noted. IMPRESSION: 1. Mild midfoot osteoarthritis. Reviewed, dictated and finalized at location E.
--- NOTE | ~2022-10-02 | XR_ITS ---
EXAMINATION: XR knee LT min 4V DATE: 10/02/2022 22:11 INDICATION: Left knee pain. TECHNIQUE: 4 views of left knee were obtained. COMPARISON: Left knee radiographs 12/21/2021 FINDINGS: Bone alignment is normal. No fracture. There is severe osteoarthritis of medial compartment and moderate osteoarthritis of lateral and patellofemoral compartments. There is a small knee joint effusion. IMPRESSION: 1. Severe left knee osteoarthritis. 2. Small left knee joint effusion. Reviewed, dictated and finalized at location E.
--- NOTE | ~2022-10-02 | XR_ITS ---
EXAMINATION: XR chest 1V portable DATE: 10/05/2022 14:47 INDICATION: Shortness of breath. TECHNIQUE: A single frontal view of the chest was obtained. COMPARISON: Chest 2 views 06/06/2021, CT abdomen and pelvis 09/07/2015 FINDINGS: There are airspace opacities in the lower lung zones, right worse than left. No pleural eff usion or pneumothorax. Cardiomegaly is noted. There are changes of vertebroplasty in lumbar spine. IMPRESSION: 1. Airspace opacities in the lower lung zones, right worse than left, consistent with atelectasis jackeline charmaine pneumonia. 2. Cardiomegaly. Reviewed, dictated and finalized at location E. IMPRESSION: 1. Airspace opacities in the lower lung zones, right worse than left, consisten t with atelectasis versus pneumonia. 2. Cardiomegaly.
--- NOTE | ~2022-10-02 | MR_ITS ---
EXAMINATION: MR ankle LT wo con DATE: 10/07/2022 13:55 INDICATION: Left ankle pain. TECHNIQUE: Magnetic resonance imaging (MRI) of the left ankle was performed without intravenous contr ast. Sequences included sagittal PD-weighted FS FSE, sagittal PD-weighted FSE, coronal PD-weighted FS FSE, coronal PD-weighted FSE, axial PD-weighted FS FSE, and axial PD-weighted FSE. COMPARISON: Left ankle radiographs 10/02/2022 FINDINGS: Medial ankle ligaments: The superficial and deep components of the deltoid ligament are intact. Lateral ankle ligaments: There are changes of prior sprain of anterior talofibular ligament and anterior tibiofibular ligament characterized increased signal intensity. Calcaneofibular ligament and posterior talofibular ligamen t are intact. There are enthesophytes of posterior tibiofibular ligament. Tendons: There is mild tenosynovitis of flexor hallucis longus. The anterior ankle tendons are normal. The per hansen tendons are normal. There is mild Achilles tendinopathy. Plantar fascia: There is plantar fasciitis characterized by thickening and increased signal involving the central ban d. There is an enthesophyte at the calcaneal attachment. Bones/other: Bone alignment is normal. No fracture. The talar dome is normal. There are tiny osteophytes at multip le midfoot joints. There is fat replacement of the bone marrow. Fluid: There is no joint effusion. IMPRESSION: 1. Plantar fasciitis. 2. Mild Achilles tendinopathy. 3. Changes of lateral ankle sprain. 4. Mild tenosynovitis of flexor hallucis longus. Reviewed, dictated and finalized at location E.
--- NOTE | ~2022-10-02 | XR_ITS ---
EXAMINATION: XR ankle RT min 3V DATE: 10/02/2022 22:10 INDICATION: Right ankle pain. TECHNIQUE: 3 views of right ankle were obtained. COMPARISON: None. FINDINGS: Bone alignment is normal. No fracture. There is diffuse osteopenia. There is mild midfoot o steoarthritis. There is ankle soft tissue swelling. IMPRESSION: 1. Mild midfoot osteoarthritis. Reviewed, dictated and finalized at location E.
--- NOTE | ~2022-10-02 | XR_ITS ---
EXAMINATION: XR knee RT min 4V DATE: 10/02/2022 22:10 INDICATION: Right knee pain. TECHNIQUE: 4 views of right knee were obtained. COMPARISON: Right knee radiographs 12/21/2021 FINDINGS: Bone alignment is normal. No fracture. There is diffuse osteopenia. There is severe osteoar thritis of lateral compartment and mild osteoarthritis of medial and patellofemoral compartments. No knee joint effusion. IMPRESSION: 1. Severe right knee osteoarthritis. Reviewed, dictated and finalized at location E.
[2022-10-02 18:22] VITALS: BP 144/84; PULSE 78; RESP 16; TEMP 36.9; O2SAT 98
--- NOTE | 2022-10-02 22:32 | PC.NURSE ---
pt was lifted from wheelchair and placed in bed. Pt is stating she cannot walk or move her legs. This RN attempted to remove the pts shoes and socks to assess but pt refused numerous times.
--- NOTE | 2022-10-02 22:48 | PC.NURSE ---
Pts son Rods number, .
--- NOTE | 2022-10-02 23:29 | ED.EXTPRO ---
HPI - Extremity Problem General Chief complaint: Extremity Problem,Nontraumatic <JEAN Alvarez Last Filed: 10/03/22 03:39> Stated complaint: right knee pain, foot pain <JEAN Alvarez Last Filed: 10/03/22 03:39> Time Seen by Provider: 10/02/22 22:12 <JEAN Alvarez Last Filed: 10/03/22 03:39> Source: patient <JEAN Alvarez Last Filed: 10/03/22 03:39> Mode of arrival: ambulatory <JEAN Alvarez Filed: 10/03/22 03:39> Limitations: no limitations <JEAN Alvarez Last Filed: 10/03/22 03:39> History of Present Illness HPI Narrative: Patient is an 82 y/o female who presents to the ED with c/o bilateral knee and foot pain. Patient reports having chronic pain related to osteoporosis and arthritis. She sees a paint grinder [facility] and is prescribed Percocet 10. Patient reports having worsening pain in her right foot and heel, worsening pain in her knees over the last several days. She states she has been unable to walk or stand up on her own. She has been unable to get up to use the bathroom or otherwise perform her ADLs over the last 2 days due to the pain. She lives at home by herself. She states her son lives close by. Patient denies any new numbness, tingling, injury that she is aware of. She denies any recent fever, chest pain, difficulty breathing. <JEAN Alvarez Last Filed: 10/03/22 03:39> Related Data Home medications: Home Medications Medication Instructions Recorded Confirmed lisinopril 40 mg tablet 40 mg PO DAILY 12/19/20 10/03/22 amlodipine 10 mg tablet 10 mg PO DAILY 05/08/21 10/03/22 furosemide 20 mg tablet 20 mg PO [id number] 06/12/21 10/03/22 folic acid 1 mg tablet 1 mg PO BID 10/03/22 10/03/22 methotrexate sodium 2.5 mg tablet 12.5 mg PO WEEKLY 10/03/22 10/03/22 methylnaltrexone 150 mg tablet 450 mg PO DAILY 10/03/22 10/03/22 (Relistor) potassium chloride 10 mEq 10 meq PO .EVERY OTHER DAY 10/03/22 10/03/22 tablet,extended release <Emily Fountain PA-C - Last Filed: 10/03/22 03:39> Allergies/Adverse reactions: Allergies Allergy/AdvReac Type Severity Reaction Status Date / Time Penicillins Allergy Unknown Unknown- Verified 10/02/22 22:41 A CHILD <JEAN Alvarez Last Filed: 10/03/22 03:39> Review of Systems Review of Systems: CONSTITUTIONAL: Denies fever, chills, or sweats. SKIN: Denies rash or itching. MUSCULOSKELETAL: HPI. NEUROLOGIC: Denies headache, numbness, or weakness. <JEAN Alvarez Last Filed: 10/03/22 03:39> All systems reviewed & are unremarkable except as noted in HPI and below <Emily Fountain PA-C - Last Filed: 10/03/22 03:39> [facility] Past Medical History Medical History: Medical History Acute bilateral low back pain without sciatica Acute idiopathic gout of left hand Bilateral hip pain Body mass index [BMI] 22.0-22.9, adult (08/29/15) Body mass index [BMI] 25.0-25.9, adult (07/01/15) Body mass index [BMI] 26.0-26.9, adult (02/01/15) Chronic pain Essential hypertension Frequent falls Mitral valve regurgitation Moderate pulmonary hypertension New onset a-fib Osteoporosis Paroxysmal atrial fibrillation (06/2015) Rheumatoid arteritis Spinal stenosis Vitamin D deficiency disease Weight loss <JEAN Alvarez Last Filed: 10/03/22 03:39> Surgical History Surgical History: Surgical History Atrial fibrillation status post cardioversion (06/2015) <JEAN Alvarez Last Filed: 10/03/22 03:39> Family History Family History: Family History Sibling Hypertension Diabetes mellitus Sibling Lung cancer Sibling Esophageal cancer Sibling Colon cancer <Emily Moraes
[2022-10-03] VITALS (8 sets, daily range): BP systolic 124–143; BP diastolic 44–74; PULSE 55–75; RESP 16–20; TEMP 35.9–36.4; O2SAT 97–100; BMI 24.5
[2022-10-03 00:16] LABS: Basophils Percent Auto 0.2 % (0.2-1.2); Eosinophils Percent Auto 0.1 % (0-4.4); Hematocrit 30.5 % (37.0-47.0); Hemoglobin 10.2 g/dL (12.0-15.0); Immature Granulocyte Absolute 0.03 K/mm3 (0.00-0.031); Immature Granulocyte Percent A 0.4 % (0-0.5); Lymphocytes Absolute Auto 0.77 K/mm3 (0.9-3.2); Lymphocytes Percent Auto 9.4 % (18.3-44.2); Mean Corpuscular HGB Conc 33.4 g/dl (32-36); Mean Corpuscular Hemoglobin 31.6 pg (26-34); Mean Corpuscular Volume 94.4 fl (80-100); Mean Platelet Volume 8.4 fl (7.4-10.4); Monocytes Absolute Auto 0.7 K/mm3 (0.1-0.6); Monocytes Percent Auto 8.4 % (2.6-8.5); Neutrophils Absolute Auto 6.7 K/mm3 (1.3-6.7); Neutrophils Percent Auto 81.5 % (45.5-73.1); Platelet Count Result 243 k/mm3 (150-375); Red Blood Count 3.23 M/mm3 (4.2-5.4); Red Cell Distribution Width 14.3 % (11.5-14.5); White Blood Count 8.2 K/mm3 (4.5-10.0)
[2022-10-03 00:29] LABS: Alanine Aminotransferase 16 U/L (6-35); Albumin Level 4.2 g/dL (3.5-5.1); Alkaline Phosphatase 127 U/L (38-126); Anion Gap 0 mmol/L (8-16); Aspartate Amino Transferase 24 U/L (14-36); Bilirubin,Total 0.7 mg/dL (0.2-1.3); Blood Urea Nitrogen 13 mg/dL (7-17); CRP 2.6 mg/dL (<1.0); Calcium 9.6 mg/dL (8.4-10.2); Carbon Dioxide 28 mmol/L (22-30); Chloride 100 mmol/L (98-107); Creatine Kinase 111 U/L (30-135); Estimated CRCL calculation 51 ml/min; Estimated Glomerular Filt Rate > 60; Glucose 118 mg/dL (65-110); Potassium 4.3 mmol/L (3.4-5.0); Sodium 128 mmol/L (137-145)
[2022-10-03 00:31] LABS: INR 1.7; Prothrombin Time 21.5 Seconds (11.1-14.7)
[2022-10-03 00:32] LABS: Partial Thromboplastin Time 54.2 SECONDS (22.3-36.8)
[2022-10-03] MEDS: oxyCODONE/ACETAMINOPHEN (*CRX) 5-325 MG TABLET 1 TABLET PO (00:40)
[2022-10-03] MEDS: SODIUM CHLORIDE 0.9% IV 1,000 ML 999 ML IV CONT (00:46)
[2022-10-03 01:09] LABS: Appearance Urine Clear (Clear); Bacteria Urine None Seen /hpf; Bilirubin Urine Negative (Negative); Blood Urine 2+ (Negative); Color Urine Yellow (Yellow); Glucose Urine UA Negative (Negative); Ketones Urine Negative (Negative); Leukocyte Esterase Ur Trace LEU/UL (Negative); Nitrate Urine Negative (Negative); Non Pathogenic Casts 0-2; Protein Urine 1+ mg/dL (Negative); Specific Grav Ur 1.007 (1.001-1.035); Squamous Epithelial Cell Urine None seen /hpf (Few); Urobilinogen Urine 0.2 mg/dL (<2.0); WBC Urine 0-5 /hpf; pH Urine 6.5 (5.0-9.0)
[2022-10-03 01:17] LABS: Add Urine Microscopic? YES
--- NOTE | 2022-10-03 04:59 | ADMGEN ---
This patient, Lesley Levy, was admitted to 2 Medical Room 259-01. Patient/family oriented to hospital policies and general routines including ID bracelet, bed and alarms, visiting hours, pain management, procedures, bathroom and other care routines, personal items, smoking policy, room service/diet, and visiting hours. Information on how to activate the Rapid Response Team has been discussed. Patient/Family are encouraged to report perceived risks to care and to ask questions if they do not understand what they are told or what they should do.
--- NOTE | 2022-10-03 08:46 | PM.IMHP ---
H&P: HPI History of Present Illness Date/Time: 10/03/22 08:46 Chief Complaint: Bilateral knee and foot pain Narrative: 82-year-old female with history of chronic pain syndrome, hypertension, pulmonary hypertension, atrial fibrillation, rheumatoid arthritis among other comorbidities is presenting with bilateral knee and foot pain. Patient states she does have chronic pain due to osteoporosis and arthritis and is chronically on Percocet 10 mg daily. The pain has been worsening over the last several days to the point where she is unable to take care of her ADLs due to pain. She denies any trauma, injury, numbness, tingling or other new symptoms. No chest pain or shortness of breath. No nausea, vomiting or diarrhea. No fevers or chills. Review of Systems Review of Systems: 12 point review of systems was assessed and was negative except as noted in the HPI [facility] Past Medical History Medical History Acute bilateral low back pain without sciatica Acute idiopathic gout of left hand Bilateral hip pain Body mass index [BMI] 22.0-22.9, adult (08/29/15) Body mass index [BMI] 25.0-25.9, adult (07/01/15) Body mass index [BMI] 26.0-26.9, adult (02/01/15) Chronic pain Essential hypertension Frequent falls Mitral valve regurgitation Moderate pulmonary hypertension New onset a-fib Osteoporosis Paroxysmal atrial fibrillation (06/2015) Rheumatoid arteritis Spinal stenosis Vitamin D deficiency disease Weight loss Surgical History Surgical History Atrial fibrillation status post cardioversion (06/2015) Family History Family History Sibling Hypertension Diabetes mellitus Sibling Lung cancer Sibling Esophageal cancer Sibling Colon cancer Social History Social History Social History: She has been since January 2020. She lives alone. She has 2 children who live nearby. 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 She ambulates with a walker. She used to occasionally drink a couple of beers a week but has not done so in many years. She is a lifelong nonsmoker. Primary care physician: Dr. Celio Calle Code status: Full code per EMR. However, the patient reports that she does not think she would want cardiac resuscitation or intubation but she needs to discuss this with her son and daughter. Smoking status: Never smoker Second hand tobacco smoke exposure: No Alcohol intake: never Drinks per week: 2 Substance use: never Substance use type: does not use Lack of Transportation: No Lack of Food: Never True Current Housing: I Have Housing Concerned About Future Housing: No Difficulty Paying Gas/Electric Bills: No Difficulty Paying for Meds: No Currently Unemployed: No Education: Grade School Difficulty w/ Childcare or Family Care: No Living arrangements: alone Spiritual care concerns: No Meds Home Medications and Allergies Home Medications Medication Instructions Recorded Confirmed Type oxycodone-acetaminophen 10 mg-325 1 tablet PO Q8H PRN Pain (Scale 10/21/20 10/03/22 History mg tablet Score 4-6) lisinopril 40 mg tablet 40 mg PO DAILY 12/19/20 10/03/22 History aspirin 81 mg tablet,delayed 81 mg PO DAILY #30 tabs 12/24/20 10/03/22 Rx release metoprolol succinate 50 mg 50 mg PO QAM #90 tabs 01/16/21 10/03/22 Rx tablet,extended release 24 hr amlodipine 10 mg tablet 10 mg PO DAILY 05/08/21 10/03/22 History furosemide 20 mg tablet 20 mg PO QMWFSU 06/12/21 10/03/22 History folic acid 1 mg tablet 1 mg PO BID 10/03/22 10/03/22 History methotrexate sodium 2.5 mg tablet 12.5 mg PO WEEKLY 10/03/22 10/03/22 History methylnaltrexone 150 mg tablet 450 mg PO DAILY 10/03/22 10/03/22 Hi
[2022-10-03] MEDS: ASPIRIN 81 MG ENTERIC TABLET PO (11:41)
[2022-10-03] MEDS: FOLIC ACID 1 MG TABLET PO ×2 (11:41→18:13)
[2022-10-03] MEDS: ACETAMINOPHEN 325 MG TABLET 650 MG PO ×2 (11:41→20:06)
[2022-10-03] MEDS: METOPROLOL SUCCINATE EXT REL 50 MG TABCR PO (11:42)
[2022-10-03] MEDS: FUROSEMIDE 20 MG TABLET PO (11:44)
[2022-10-03] MEDS: lisinopriL 20 MG TABLET 40 MG PO (11:44)
[2022-10-03] MEDS: amLODIPine BESYLATE 5 MG TABLET 10 MG PO (11:44)
[2022-10-03] MEDS: oxyCODONE/ACETAMINOPHEN (*CRX) 10-325 MG TABLET 1 TAB PO ×2 (11:45→20:07)
--- NOTE | 2022-10-03 12:59 | PC.NURSE ---
During AM med pass the patient had multiple anxious complaints regarding her medications not appearing the way they do at home. RN attempted to explain multiple times the medication appearance can be different due to our pharmacy formulas being different, and reiterated the medications are the same she takes at home. The patient did take all scheduled medication after many attempts to educate.
[2022-10-03] MEDS: RIVAROXABAN 20 MG TABLET PO (18:13)
[2022-10-04] MEDS: oxyCODONE/ACETAMINOPHEN (*CRX) 10-325 MG TABLET 1 TAB PO ×3 (04:40→20:42)
[2022-10-04] MEDS: ACETAMINOPHEN 325 MG TABLET 650 MG PO ×3 (04:40→20:42)
[2022-10-04 04:46] VITALS: BP 126/53; PULSE 57; RESP 18; TEMP 36.6; O2SAT 100
[2022-10-04 09:09] VITALS: BP 150/66; PULSE 59; O2SAT 100
[2022-10-04] MEDS: ASPIRIN 81 MG ENTERIC TABLET PO (09:10)
[2022-10-04] MEDS: FOLIC ACID 1 MG TABLET PO ×2 (09:10→16:50)
[2022-10-04] MEDS: amLODIPine BESYLATE 5 MG TABLET 10 MG PO (09:24)
[2022-10-04] MEDS: lisinopriL 20 MG TABLET 40 MG PO (09:25)
[2022-10-04 09:26] VITALS: PULSE 59
[2022-10-04] MEDS: METOPROLOL SUCCINATE EXT REL 50 MG TABCR PO (09:26)
--- NOTE | 2022-10-04 09:53 | PM.IMPN ---
Progress Note: A&P Assessment and Plan (1) Unable to ambulate: Code(s): R26.2 - Difficulty in walking, not elsewhere classified Status: Acute Assessment and Plan: 2/2 severe, acute pain of unknown etiology, suspect arthritis? PT/OT consult Check blood cultures, CRP, procalcitonin Consult orthopedic surgery pending (2) Knee pain, bilateral: Qualifiers: Chronicity: acute Qualified Code(s): M25.561 - Pain in right knee; M25.562 - Pain in left knee Code(s): M25.561 - Pain in right knee; M25.562 - Pain in left knee Status: Acute (3) Bilateral foot pain: Code(s): M79.671 - Pain in right foot; M79.672 - Pain in left foot Status: Acute (4) Pulmonary HTN: Code(s): I27.20 - Pulmonary hypertension, unspecified Status: Acute Assessment and Plan: supportive care, stable (5) Chronic pain: Qualifiers: Chronic pain type: chronic pain syndrome Qualified Code(s): G89.4 - Chronic pain syndrome Code(s): G89.29 - Other chronic pain Status: Acute Plan DVT prophylaxis with xarelto Gi prophylaxis not indicated full code Subjective Date/time seen: 10/04/22 09:53 Interval history: 82-year-old female with history of chronic pain syndrome is presenting with acute on chronic lower extremity knee and foot pain, likely due to worsening arthritis. No overnight events noted. No chest pain or shortness of breath. No nausea, vomiting or diarrhea. No fevers or chills. She states her pain is the same as yesterday. Review of Systems Review of Systems: 12 point review of systems was assessed and was negative except as noted in the HPI Exam Narrative: General: No acute distress, alert and oriented per baseline HEENT: Atraumatic, normocephalic, mucous membranes moist CV: Regular rate and rhythm, S1, S2 Lungs: Clear to auscultation bilaterally, no rales or crackles noted, no wheezes, good air entry Abdomen: Soft, nontender, nondistended Extremities: Normal to inspection, TTP over lateral ankle on LLE Skin: No rashes noted, no lesions or wounds seen Psych: Euthymic, normal affect Objective Data Vital Signs Vital Signs: Vital Signs - 24 hr 10/03/22 10:59 07/12/23 11:40 10/03/22 11:42 Temperature Pulse Rate 64 64 Respiratory Rate Blood Pressure 128/56 L Pulse Oximetry 100 Oxygen Delivery Room Air 10/03/22 11:40 10/03/22 15:06 10/03/22 21:26 Temperature 97.6 F 96.7 F L Pulse Rate 58 L 55 L Respiratory Rate 18 20 Blood Pressure 126/44 L 124/54 L Pulse Oximetry 98 98 Oxygen Delivery Room Air 10/03/22 20:00 10/04/22 04:46 10/04/22 09:09 Temperature 97.9 F Pulse Rate 57 L 59 L Respiratory Rate 18 Blood Pressure 126/53 L 150/66 H Pulse Oximetry 100 100 Oxygen Delivery Room Air 10/04/22 09:26 Temperature Pulse Rate 59 L Respiratory Rate Blood Pressure Pulse Oximetry Oxygen Delivery Intake/Output Intake/Output: Intake & Output 10/01/22 10/02/22 10/03/22 10/04/22 23:59 23:59 23:59 23:59 Intake Total 2120 460 Output Total 1750 300 Balance 370 160 Meds/Results Medications: Active Medications Generic Name Dose Route Start Last Admin Trade Name Marleny PRN Reason Stop Dose Admin Acetaminophen 650 mg 10/03/22 20:00 10/04/22 04:40 Acetaminophen 325 Mg Tablet PO 650 mg Q8H JAYNA Administration Amlodipine Besylate 10 mg 10/03/22 09:00 10/04/22 09:24 Amlodipine Besylate 5 Mg Tablet PO 10 mg DAILY JAYNA Administration Aspirin 81 mg 10/03/22 09:00 10/04/22 09:10 Aspirin 81 Mg Enteric Tablet PO 81 mg DAILY JAYNA Administration Folic Acid 1 mg 10/03/22 09:25 10/04/22 09:10 Folic Acid 1 Mg Tablet PO 1 mg BID JAYNA Administration Furosemide 20 mg 10/03/22 09:00 10/03/22 11:44 Furosemide 20 Mg Tablet PO 20 mg [id number] JAYNA Administration Lidocaine 2 patch 10/03/22 11:36 Lidocaine 5% Pa
[2022-10-04 10:40] LABS: Basophils Percent Auto 0.2 % (0.2-1.2); Eosinophils Absolute Auto 0.1 K/mm3 (0-0.3); Eosinophils Percent Auto 1.4 % (0-4.4); Hematocrit 33.1 % (37.0-47.0); Hemoglobin 10.7 g/dL (12.0-15.0); Immature Granulocyte Absolute 0.02 K/mm3 (0.00-0.031); Immature Granulocyte Percent A 0.4 % (0-0.5); Lymphocytes Absolute Auto 0.91 K/mm3 (0.9-3.2); Lymphocytes Percent Auto 17.7 % (18.3-44.2); Mean Corpuscular HGB Conc 32.3 g/dl (32-36); Mean Corpuscular Hemoglobin 31.2 pg (26-34); Mean Corpuscular Volume 96.5 fl (80-100); Mean Platelet Volume 8.6 fl (7.4-10.4); Monocytes Absolute Auto 0.2 K/mm3 (0.1-0.6); Monocytes Percent Auto 3.9 % (2.6-8.5); Neutrophils Absolute Auto 3.9 K/mm3 (1.3-6.7); Neutrophils Percent Auto 76.4 % (45.5-73.1); Platelet Count Result 255 k/mm3 (150-375); Red Blood Count 3.43 M/mm3 (4.2-5.4); Red Cell Distribution Width 14.4 % (11.5-14.5); White Blood Count 5.1 K/mm3 (4.5-10.0)
[2022-10-04 10:50] LABS: Alanine Aminotransferase 18 U/L (6-35); Albumin Level 3.7 g/dL (3.5-5.1); Alkaline Phosphatase 80 U/L (38-126); Anion Gap 0 mmol/L (8-16); Aspartate Amino Transferase 36 U/L (14-36); Bilirubin,Total 0.7 mg/dL (0.2-1.3); Blood Urea Nitrogen 12 mg/dL (7-17); CRP 6.1 mg/dL (<1.0); Calcium 9.3 mg/dL (8.4-10.2); Carbon Dioxide 31 mmol/L (22-30); Chloride 96 mmol/L (98-107); Estimated CRCL calculation 45 ml/min; Estimated Glomerular Filt Rate > 60; Glucose 157 mg/dL (65-110); Potassium 3.6 mmol/L (3.4-5.0); Sodium 127 mmol/L (137-145)
--- NOTE | 2022-10-04 11:44 | PCOTNOTE ---
Attempted to see Patient this A.M. Patient refused to participate at this time. Patient stated she is waiting on her lunch and she will eat it right where she is .
[2022-10-04 12:48] LABS: Procalcitonin 0.1 ng/mL
[2022-10-04 16:42] VITALS: BP 138/62; PULSE 50; RESP 18; TEMP 36.2; O2SAT 99
[2022-10-04] MEDS: RIVAROXABAN 20 MG TABLET PO (16:50)
--- NOTE | 2022-10-04 17:13 | PM.CNOR ---
Assessment and Plan Assessment and plan (1) Pain, foot, left, chronic: Code(s): M79.672 - Pain in left foot; G89.29 - Other chronic pain Status: Acute Assessment and Plan: PAPI IS HERE FOR EVALUATION OF HER LEFT FOOT PAIN WITH 1 WEEK ONSET. ACCORDING TO HER SON SHE HAS CHRONIC FOOT AND KNEE PAIN. HER KNEES ARE NOT BOTHERING HER TODAY. ON EXAM SHE HAS TENDERNESS OVER THE LEFT 2ND AND 3RD METATARSALS. SHE HAS N EVIDENCE OF FRACTURE ON THE XRAYS. THERE IS A POSSIBILITY SHE COULD HAVE A STRESS FRACTURE. I WOULD RECOMMEND A POSTOP SHOE FOR AMBULATION AND RECOMMEND PT FOR AMBULATION AND ASSISTANCE WITH MOBILIZATION AND SEE HOW SHE DOES. SHE WILL MOST LIKELY REQUIRE SNF PLACEMENT IF SHE DOES NOT IMPROVE. I WOULD NOT RECOMMEND A WALKER BOOT DUE TO THE DIFFICULTY IT MAY POSE FOR AMBULATION. WE WILL OBSERVE HER FOR PROGRESS. History of Present Illness HPI Consult date: 10/04/22 Consult reason: joint pain (LEFT FOOT PAIN) Chief complaint: weakness,bilateral knee/foot pain,unable to walk/p Narrative: PAPI IS HERE FOR EVALUATION OF HER INABILTY TO WALK. SHE LIVES ON HER OWN AND HER SON LIVES IN FRONT OF HER. SHE HAS BEEN HAVING SOME ONGOING PAIN IN THE LEFT FOOT OVER THE PAST WEEK. SHE USUALLY WALKS INDEPENDENTLY WITH A WALKER. SHE BEGAN HAVING PAIN AND IN THE LEFT FOOT WITH INABILITY TO AMBULATE. SHE HAS NO HISTORY OF INJURY TO THE FOOT. SHE HAS A HISTORY OF BILATERAL KNEE DJD BUT SHE HAS NO CURRENT PAIN IN HER KNEES. SH DENIES ANY FEVER OR CHILLS. HISTORY, EXAM AND RADIOGRAPHS REVIEWED WITH THE PATIENT. REFERRING PHYSICIAN RECORDS AND IMAGES REVIEWED. CONDITION, NATURE, ETIOLOGY AND COURSE OF NATURAL HISTORY REVIEWED. CONSERVATIVE AND OPERATIVE TREATMENT OPTIONS REVIEWED WELL THE RISKS AND BENEFITS OF EACH. Review of Systems Review of Systems: All systems reviewed & are unremarkable except as noted in HPI and below PMFSH Past Medical History Medical History Acute bilateral low back pain without sciatica Acute idiopathic gout of left hand Bilateral hip pain Body mass index [BMI] 22.0-22.9, adult (08/29/15) Body mass index [BMI] 25.0-25.9, adult (07/01/15) Body mass index [BMI] 26.0-26.9, adult (02/01/15) Chronic pain Essential hypertension Frequent falls Mitral valve regurgitation Moderate pulmonary hypertension New onset a-fib Osteoporosis Paroxysmal atrial fibrillation (06/2015) Rheumatoid arteritis Spinal stenosis Vitamin D deficiency disease Weight loss Surgical History Surgical History Atrial fibrillation status post cardioversion (06/2015) Family History Family History Sibling Hypertension Diabetes mellitus Sibling Lung cancer Sibling Esophageal cancer Sibling Colon cancer Social History Social History Social History: She has been since January 2020. She lives alone. She has 2 children who live nearby. 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 She ambulates with a walker. She used to occasionally drink a couple of beers a week but has not done so in many years. She is a lifelong nonsmoker. Primary care physician: Dr. Celio Calle Code status: Full code per EMR. However, the patient reports that she does not think she would want cardiac resuscitation or intubation but she needs to discuss this with her son and daughter. Smoking status: Never smoker Second hand tobacco smoke exposure: No Alcohol intake: never Drinks per week: 2 Substance use: never Substance use type: does not use Lack of Transportation: No Lack of Food: Never True Current Housing: I Have Housing Concerned About Future Housing: No Difficulty Paying Gas/Electric Bills: No Difficulty Paying for Meds:
--- NOTE | 2022-10-04 19:04 | PHAR ---
PT'S HOME MED RELISTOR (METHYLNALTREXONE) 150 MG TABS VERIFIED BY PHARMACY
[2022-10-04 20:09] VITALS: BP 137/51; PULSE 67; RESP 16; TEMP 36.5; O2SAT 98
[2022-10-05] MEDS: ACETAMINOPHEN 325 MG TABLET 650 MG PO ×3 (04:03→20:26)
[2022-10-05] MEDS: oxyCODONE/ACETAMINOPHEN (*CRX) 10-325 MG TABLET 1 TAB PO ×3 (04:03→20:26)
[2022-10-05 04:53] VITALS: BP 145/62; PULSE 69; RESP 16; TEMP 36.2; O2SAT 96
[2022-10-05 05:43] LABS: Basophils Percent Auto 0.1 % (0.2-1.2); Eosinophils Absolute Auto 0.1 K/mm3 (0-0.3); Eosinophils Percent Auto 0.8 % (0-4.4); Hematocrit 28.3 % (37.0-47.0); Hemoglobin 9.5 g/dL (12.0-15.0); Immature Granulocyte Absolute 0.03 K/mm3 (0.00-0.031); Immature Granulocyte Percent A 0.4 % (0-0.5); Lymphocytes Absolute Auto 0.96 K/mm3 (0.9-3.2); Lymphocytes Percent Auto 13.3 % (18.3-44.2); Mean Corpuscular HGB Conc 33.6 g/dl (32-36); Mean Corpuscular Hemoglobin 31.4 pg (26-34); Mean Corpuscular Volume 93.4 fl (80-100); Mean Platelet Volume 8.6 fl (7.4-10.4); Monocytes Absolute Auto 0.6 K/mm3 (0.1-0.6); Monocytes Percent Auto 8.2 % (2.6-8.5); Neutrophils Absolute Auto 5.6 K/mm3 (1.3-6.7); Neutrophils Percent Auto 77.2 % (45.5-73.1); Platelet Count Result 242 k/mm3 (150-375); Red Blood Count 3.03 M/mm3 (4.2-5.4); Red Cell Distribution Width 13.9 % (11.5-14.5); White Blood Count 7.2 K/mm3 (4.5-10.0)
[2022-10-05 05:54] LABS: Alanine Aminotransferase 14 U/L (6-35); Albumin Level 3.3 g/dL (3.5-5.1); Alkaline Phosphatase 96 U/L (38-126); Anion Gap -2 mmol/L (8-16); Aspartate Amino Transferase 29 U/L (14-36); Bilirubin,Total 0.7 mg/dL (0.2-1.3); Blood Urea Nitrogen 12 mg/dL (7-17); Calcium 8.8 mg/dL (8.4-10.2); Carbon Dioxide 31 mmol/L (22-30); Chloride 97 mmol/L (98-107); Estimated CRCL calculation 51 ml/min; Estimated Glomerular Filt Rate > 60; Glucose 109 mg/dL (65-110); Sodium 126 mmol/L (137-145)
--- NOTE | 2022-10-05 07:57 | PM.IMPN ---
Progress Note: A&P Assessment and Plan (1) Unable to ambulate: Code(s): R26.2 - Difficulty in walking, not elsewhere classified Status: Acute Assessment and Plan: 2/2 severe, acute pain of unknown etiology, suspect arthritis vs fracture? PT/OT consult Check blood cultures, CRP, procalcitonin Consult orthopedic surgery pending 10/05: CRP increased from 2-6, check MRI left ankle, PCT 0.1, do not suspect infectious etiology (2) Knee pain, bilateral: Qualifiers: Chronicity: acute Qualified Code(s): M25.561 - Pain in right knee; M25.562 - Pain in left knee Code(s): M25.561 - Pain in right knee; M25.562 - Pain in left knee Status: Acute (3) Bilateral foot pain: Code(s): M79.671 - Pain in right foot; M79.672 - Pain in left foot Status: Acute (4) Pulmonary HTN: Code(s): I27.20 - Pulmonary hypertension, unspecified Status: Acute Assessment and Plan: supportive care, stable (5) Chronic pain: Qualifiers: Chronic pain type: chronic pain syndrome Qualified Code(s): G89.4 - Chronic pain syndrome Code(s): G89.29 - Other chronic pain Status: Acute Plan DVT prophylaxis with xarelto Gi prophylaxis not indicated full code Subjective Date/time seen: 10/05/22 07:57 Interval history: 82-year-old female with history of chronic pain syndrome is presenting with acute on chronic lower extremity knee and foot pain, likely due to worsening arthritis. No overnight events noted. No chest pain or shortness of breath. No nausea, vomiting or diarrhea. No fevers or chills. She states her pain is the same as yesterday. Review of Systems Review of Systems: 12 point review of systems was assessed and was negative except as noted in the HPI Exam Narrative: General: No acute distress, alert and oriented per baseline HEENT: Atraumatic, normocephalic, mucous membranes moist CV: Regular rate and rhythm, S1, S2 Lungs: Clear to auscultation bilaterally, no rales or crackles noted, no wheezes, good air entry Abdomen: Soft, nontender, nondistended Extremities: Normal to inspection, TTP over lateral ankle on LLE Skin: No rashes noted, no lesions or wounds seen Psych: Euthymic, normal affect Objective Data Vital Signs Vital Signs: Vital Signs - 24 hr 10/04/22 09:09 10/04/22 09:26 10/04/22 08:13 Temperature Pulse Rate 59 L 59 L Respiratory Rate Blood Pressure 150/66 H Pulse Oximetry 100 Oxygen Delivery Room Air 10/04/22 16:42 10/04/22 20:09 10/04/22 20:00 Temperature 97.2 F L 97.7 F Pulse Rate 50 L 67 Respiratory Rate 18 16 Blood Pressure 138/62 137/51 L Pulse Oximetry 99 98 Oxygen Delivery Room Air 10/05/22 04:53 Temperature 97.1 F L Pulse Rate 69 Respiratory Rate 16 Blood Pressure 145/62 H Pulse Oximetry 96 Oxygen Delivery Intake/Output Intake/Output: Intake & Output 10/02/22 10/03/22 10/04/22 10/05/22 23:59 23:59 23:59 23:59 Intake Total 2120 940 290 Output Total 1750 1050 500 Balance 370 110 -210 Meds/Results Medications: Active Medications Generic Name Dose Route Start Last Admin Trade Name Freq PRN Reason Stop Dose Admin Acetaminophen 650 mg 10/03/22 20:00 10/05/22 04:03 Acetaminophen 325 Mg Tablet PO 650 mg Q8H JAYNA Administration Amlodipine Besylate 10 mg 10/03/22 09:00 10/04/22 09:24 Amlodipine Besylate 5 Mg Tablet PO 10 mg DAILY JAYNA Administration Aspirin 81 mg 10/03/22 09:00 10/04/22 09:10 Aspirin 81 Mg Enteric Tablet PO 81 mg DAILY JAYNA Administration Folic Acid 1 mg 10/03/22 09:25 10/04/22 16:50 Folic Acid 1 Mg Tablet PO 1 mg BID JAYNA Administration Furosemide 20 mg 10/03/22 09:00 10/03/22 11:44 Furosemide 20 Mg Tablet PO 20 mg [id number] JAYNA Administration Lidocaine 2 patch 10/03/22 11:36 Lidocaine 5% Patch TRANSDERM DAILY PRN KNEE/FOOT PAIN Lisinopril 40
[2022-10-05 10:35] VITALS: BP 151/60; PULSE 64; RESP 15; O2SAT 99
[2022-10-05] MEDS: FUROSEMIDE 20 MG TABLET PO (10:38)
[2022-10-05] MEDS: ASPIRIN 81 MG ENTERIC TABLET PO (10:38)
[2022-10-05] MEDS: lisinopriL 20 MG TABLET 40 MG PO (10:38)
[2022-10-05] MEDS: amLODIPine BESYLATE 5 MG TABLET 10 MG PO (10:38)
[2022-10-05] MEDS: FOLIC ACID 1 MG TABLET PO ×2 (10:38→18:45)
[2022-10-05 10:39] VITALS: PULSE 62
[2022-10-05] MEDS: METOPROLOL SUCCINATE EXT REL 50 MG TABCR PO (10:39)
[2022-10-05] MEDS: POTASSIUM CHLORIDE 10 MEQ ER TABLET PO (10:39)
[2022-10-05 11:31] VITALS: BP 145/61; PULSE 70; RESP 16; TEMP 36.4; O2SAT 99
--- NOTE | 2022-10-05 12:10 | PCOTNOTE ---
Per RN, Patient complaining of chest pain, she has a call out to the doctor. Will check back at a later time.
[2022-10-05 14:34] VITALS: BP 130/65; PULSE 68; RESP 14; TEMP 36.6; O2SAT 99
--- NOTE | 2022-10-05 14:34 | ECG_ITS ---
Measurements Intervals [place] Rate: 57 P: 106 VA: 176 QRS: -46 QRSD: 147 T: 4 QT: 443 QTc: 432 Interpretive Statements SINUS BRADYCARDIA ATRIAL PREMATURE COMPLEX RIGHT BUNDLE BRANCH BLOCK LEFT ANTERIOR FASCICULAR BLOCK BASELINE ARTIFACT- III, AVF ABNORMAL ECG COMPARED TO ECG 06/06/2021 10:31:21 RIGHT BUNDLE-BRANCH BLOCK NOW PRESENT LEFT ANTERIOR FASCICULAR BLOCK NOW PRESENT Electronically Signed On 10-05-2022 15:01:12 CDT by Tello Harris D.O.
[2022-10-05 15:29] LABS: Troponin I < 0.012 ng/mL (0.000-0.034)
--- NOTE | 2022-10-05 15:31 | PCOTNOTE ---
Checked in with RN this P.M. Patient is supposed to have a MRI but Patient is refusing to have done. Patient is now in her room having an EKG done. Patient not available for treatment session.
[2022-10-05] MEDS: RIVAROXABAN 20 MG TABLET PO (18:45)
[2022-10-05 21:48] VITALS: BP 126/65; PULSE 60; RESP 20; TEMP 36.3; O2SAT 95
[2022-10-06 04:34] VITALS: BP 137/58; PULSE 61; RESP 18; TEMP 35.8; O2SAT 96
[2022-10-06] MEDS: oxyCODONE/ACETAMINOPHEN (*CRX) 10-325 MG TABLET 1 TAB PO ×3 (04:53→20:16)
[2022-10-06] MEDS: ACETAMINOPHEN 325 MG TABLET 650 MG PO ×3 (04:53→20:16)
[2022-10-06 05:29] LABS: Basophils Percent Auto 0.5 % (0.2-1.2); Eosinophils Absolute Auto 0.1 K/mm3 (0-0.3); Eosinophils Percent Auto 1.8 % (0-4.4); Hematocrit 29.4 % (37.0-47.0); Hemoglobin 9.8 g/dL (12.0-15.0); Immature Granulocyte Absolute 0.03 K/mm3 (0.00-0.031); Immature Granulocyte Percent A 0.5 % (0-0.5); Lymphocytes Absolute Auto 1.16 K/mm3 (0.9-3.2); Lymphocytes Percent Auto 17.7 % (18.3-44.2); Mean Corpuscular HGB Conc 33.3 g/dl (32-36); Mean Corpuscular Hemoglobin 31.3 pg (26-34); Mean Corpuscular Volume 93.9 fl (80-100); Mean Platelet Volume 8.8 fl (7.4-10.4); Monocytes Absolute Auto 0.5 K/mm3 (0.1-0.6); Monocytes Percent Auto 8.2 % (2.6-8.5); Neutrophils Absolute Auto 4.7 K/mm3 (1.3-6.7); Neutrophils Percent Auto 71.3 % (45.5-73.1); Platelet Count Result 266 k/mm3 (150-375); Red Blood Count 3.13 M/mm3 (4.2-5.4); Red Cell Distribution Width 14.1 % (11.5-14.5); White Blood Count 6.6 K/mm3 (4.5-10.0)
[2022-10-06 05:34] LABS: Alanine Aminotransferase 13 U/L (6-35); Albumin Level 3.1 g/dL (3.5-5.1); Alkaline Phosphatase 88 U/L (38-126); Anion Gap 1 mmol/L (8-16); Aspartate Amino Transferase 26 U/L (14-36); Bilirubin,Total 0.6 mg/dL (0.2-1.3); Blood Urea Nitrogen 10 mg/dL (7-17); Calcium 8.6 mg/dL (8.4-10.2); Carbon Dioxide 29 mmol/L (22-30); Chloride 98 mmol/L (98-107); Estimated CRCL calculation 60 ml/min; Estimated Glomerular Filt Rate > 60; Glucose 96 mg/dL (65-110); Potassium 3.8 mmol/L (3.4-5.0); Sodium 128 mmol/L (137-145)
[2022-10-06 09:03] VITALS: BP 136/64; PULSE 68; RESP 16; O2SAT 98
[2022-10-06 09:07] VITALS: PULSE 68
[2022-10-06] MEDS: amLODIPine BESYLATE 5 MG TABLET 10 MG PO (09:07)
[2022-10-06] MEDS: FOLIC ACID 1 MG TABLET PO ×2 (09:07→17:59)
[2022-10-06] MEDS: METOPROLOL SUCCINATE EXT REL 50 MG TABCR PO (09:07)
[2022-10-06] MEDS: ASPIRIN 81 MG ENTERIC TABLET PO (09:07)
[2022-10-06] MEDS: lisinopriL 20 MG TABLET 40 MG PO (09:07)
[2022-10-06 12:12] LABS: CRP 6.7 mg/dL (<1.0)
[2022-10-06 12:27] LABS: Procalcitonin 0.1 ng/mL
--- NOTE | 2022-10-06 12:35 | PM.IMPN ---
Progress Note: A&P Assessment and Plan (1) Unable to ambulate: Code(s): R26.2 - Difficulty in walking, not elsewhere classified Status: Acute Assessment and Plan: 2/2 severe, acute pain of unknown etiology, suspect arthritis vs fracture? PT/OT consult Check blood cultures, CRP, procalcitonin Consult orthopedic surgery pending 10/05: CRP increased from 2-6, check MRI left ankle, PCT 0.1, do not suspect infectious etiology 10/06: CXR showed lower lung base scarring, atelectasis vs pna, suspect scarring, IS to bedside, recheck CRP/PCT, no leuk, bld cx NGTD (2) Knee pain, bilateral: Qualifiers: Chronicity: acute Qualified Code(s): M25.561 - Pain in right knee; M25.562 - Pain in left knee Code(s): M25.561 - Pain in right knee; M25.562 - Pain in left knee Status: Acute (3) Bilateral foot pain: Code(s): M79.671 - Pain in right foot; M79.672 - Pain in left foot Status: Acute (4) Pulmonary HTN: Code(s): I27.20 - Pulmonary hypertension, unspecified Status: Acute Assessment and Plan: supportive care, stable (5) Chronic pain: Qualifiers: Chronic pain type: chronic pain syndrome Qualified Code(s): G89.4 - Chronic pain syndrome Code(s): G89.29 - Other chronic pain Status: Acute Plan DVT prophylaxis with xarelto Gi prophylaxis not indicated full code Subjective Date/time seen: 10/06/22 12:35 Interval history: 82-year-old female with history of chronic pain syndrome is presenting with acute on chronic lower extremity knee and foot pain, likely due to worsening arthritis. No overnight events noted. No chest pain or shortness of breath. No nausea, vomiting or diarrhea. No fevers or chills. She states her pain is the same as yesterday. Review of Systems Review of Systems: patient extremely irritable and refused to answer questions or allow herself to be examined ROS unobtainable: Yes unobtainable due to mental status Exam Narrative: patient refused to be examined General: Appears to be alert and oriented per baseline HEENT: Atraumatic, normocephalic, mucous membranes moist CV: unable to assess Lungs: nonlabored breathing noted, no audible wheeze or stridor Abdomen: appears ND Extremities: Normal to inspection Skin: No rashes noted, no lesions or wounds seen Psych: irritable, dismissive, appears to have poor judgment and insight with dysthymic mood and labile affect Objective Data Vital Signs Vital Signs: Vital Signs - 24 hr 10/05/22 14:34 10/05/22 20:00 10/05/22 21:48 Temperature 97.8 F 97.4 F L Pulse Rate 68 60 Respiratory Rate 14 20 Blood Pressure 130/65 126/65 Pulse Oximetry 99 95 Oxygen Delivery Room Air 10/06/22 04:34 10/06/22 09:03 10/06/22 09:07 Temperature 96.5 F L Pulse Rate 61 68 68 Respiratory Rate 18 16 Blood Pressure 137/58 L 136/64 Pulse Oximetry 96 98 Oxygen Delivery Intake/Output Intake/Output: Intake & Output 10/03/22 10/04/22 10/05/22 10/06/22 23:59 23:59 23:59 23:59 Intake Total 2120 940 1640 290 Output Total 1750 1050 2000 300 Balance 370 -110 -360 -10 Meds/Results Medications: Active Medications Generic Name Dose Route Start Last Admin Trade Name Jaredq PRN Reason Stop Dose Admin Acetaminophen 650 mg 10/03/22 20:00 10/06/22 11:52 Acetaminophen 325 Mg Tablet PO 650 mg Q8H JAYNA Administration Amlodipine Besylate 10 mg 10/03/22 09:00 10/06/22 09:07 Amlodipine Besylate 5 Mg Tablet PO 10 mg DAILY JAYNA Administration Aspirin 81 mg 10/03/22 09:00 10/06/22 09:07 Aspirin 81 Mg Enteric Tablet PO 81 mg DAILY JAYNA Administration Folic Acid 1 mg 10/03/22 09:25 10/06/22 09:07 Folic Acid 1 Mg Tablet PO 1 mg BID JAYNA Administration Furosemide 20 mg 10/03/22 09:00 10/05/22 10:38 Furosemide 20 Mg Tablet PO 20 mg [id number] JAYNA Administration Lidocaine 2 patch 10/03/22 11:3
[2022-10-06 14:50] VITALS: BP 122/57; PULSE 67; RESP 16; TEMP 37.1; O2SAT 99
[2022-10-06] MEDS: RIVAROXABAN 20 MG TABLET PO (17:59)
[2022-10-06 19:51] VITALS: BP 141/63; PULSE 70; RESP 19; TEMP 36.7; O2SAT 96
[2022-10-07] MEDS: ACETAMINOPHEN 325 MG TABLET 650 MG PO ×2 (04:26→11:55)
[2022-10-07] MEDS: oxyCODONE/ACETAMINOPHEN (*CRX) 10-325 MG TABLET 1 TAB PO ×2 (04:26→11:54)
[2022-10-07 04:46] VITALS: BP 144/57; PULSE 60; RESP 16; TEMP 36.6; O2SAT 99
[2022-10-07 05:19] LABS: Basophils Percent Auto 0.5 % (0.2-1.2); Eosinophils Absolute Auto 0.1 K/mm3 (0-0.3); Eosinophils Percent Auto 2.1 % (0-4.4); Hematocrit 28.8 % (37.0-47.0); Hemoglobin 9.5 g/dL (12.0-15.0); Immature Granulocyte Absolute 0.01 K/mm3 (0.00-0.031); Immature Granulocyte Percent A 0.2 % (0-0.5); Lymphocytes Absolute Auto 0.89 K/mm3 (0.9-3.2); Lymphocytes Percent Auto 15.9 % (18.3-44.2); Mean Corpuscular Hemoglobin 30.9 pg (26-34); Mean Corpuscular Volume 93.8 fl (80-100); Mean Platelet Volume 8.4 fl (7.4-10.4); Monocytes Absolute Auto 0.6 K/mm3 (0.1-0.6); Monocytes Percent Auto 10.7 % (2.6-8.5); Neutrophils Absolute Auto 3.9 K/mm3 (1.3-6.7); Neutrophils Percent Auto 70.6 % (45.5-73.1); Platelet Count Result 223 k/mm3 (150-375); Red Blood Count 3.07 M/mm3 (4.2-5.4); White Blood Count 5.6 K/mm3 (4.5-10.0)
[2022-10-07 05:31] LABS: Alanine Aminotransferase 13 U/L (6-35); Albumin Level 3.1 g/dL (3.5-5.1); Alkaline Phosphatase 79 U/L (38-126); Anion Gap 0 mmol/L (8-16); Aspartate Amino Transferase 24 U/L (14-36); Bilirubin,Total 0.5 mg/dL (0.2-1.3); Blood Urea Nitrogen 10 mg/dL (7-17); Calcium 8.7 mg/dL (8.4-10.2); Carbon Dioxide 30 mmol/L (22-30); Chloride 96 mmol/L (98-107); Estimated CRCL calculation 60 ml/min; Estimated Glomerular Filt Rate > 60; Glucose 90 mg/dL (65-110); Potassium 3.7 mmol/L (3.4-5.0); Sodium 126 mmol/L (137-145)
--- NOTE | 2022-10-07 08:42 | PM.DS ---
DS: Admitting Diagnosis Discharge Date 10/07/22 Admitting Diagnosis worsening foot pain DS: Discharge Diagnosis Discharge Diagnosis (1) Unable to ambulate: Code(s): R26.2 - Difficulty in walking, not elsewhere classified Status: Acute Assessment and Plan: 2/2 severe, acute pain of unknown etiology, suspect arthritis vs fracture? PT/OT consult Check blood cultures, CRP, procalcitonin Consult orthopedic surgery pending 10/05: CRP increased from 2-6, check MRI left ankle, PCT 0.1, do not suspect infectious etiology 10/06: CXR showed lower lung base scarring, atelectasis vs pna, suspect scarring, IS to bedside, recheck CRP/PCT, no leuk, bld cx NGTD (2) Knee pain, bilateral: Qualifiers: Chronicity: acute Qualified Code(s): M25.561 - Pain in right knee; M25.562 - Pain in left knee Code(s): M25.561 - Pain in right knee; M25.562 - Pain in left knee Status: Acute (3) Bilateral foot pain: Code(s): M79.671 - Pain in right foot; M79.672 - Pain in left foot Status: Acute (4) Pulmonary HTN: Code(s): I27.20 - Pulmonary hypertension, unspecified Status: Acute Assessment and Plan: supportive care, stable (5) Chronic pain: Qualifiers: Chronic pain type: chronic pain syndrome Qualified Code(s): G89.4 - Chronic pain syndrome Code(s): G89.29 - Other chronic pain Status: Acute Plan DVT prophylaxis with xarelto Gi prophylaxis not indicated full code DS: Summary Hospital Course Hospital Course: 82-year-old female with history of chronic pain syndrome, hypertension, pulmonary hypertension, atrial fibrillation, rheumatoid arthritis among other comorbidities is presenting with bilateral knee and foot pain.? Patient states she does have chronic pain due to osteoporosis and arthritis and is chronically on Percocet 10 mg daily.? The pain has been worsening over the last several days to the point where she is unable to take care of her ADLs due to pain.? She denies any trauma, injury, numbness, tingling or other new symptoms.? No chest pain or shortness of breath.? No nausea, vomiting or diarrhea.? No fevers or chills. Ortho was consulted and recommended rehab and assisted ambulation with continued pain medication. MRI ordered and pending to rule out stress fracture. See above and [facility] rec for details. Time Spent with Patient Time attestation: Total time spent providing and/or coordinating discharge services: Exam Narrative: patient refused to be examined General: Appears to be alert and oriented per baseline HEENT: Atraumatic, normocephalic, mucous membranes moist CV: unable to assess Lungs: nonlabored breathing noted, no audible wheeze or stridor Abdomen: appears ND Extremities: Normal to inspection Skin: No rashes noted, no lesions or wounds seen Psych: irritable, dismissive, appears to have poor judgment and insight with dysthymic mood and labile affect DS: Data Data Completed and Pending Labs on day of discharge: Labs from last 24 hours 10/07/22 10/06/22 05:02 04:42 WBC 5.6 RBC 3.07 L Hgb 9.5 L Hct 28.8 L MCV 93.8 MCH 30.9 MCHC 33.0 RDW 14.0 Plt Count 223 MPV 8.4 Immature Gran % (Auto) 0.2 Neut % (Auto) 70.6 Lymph % (Auto) 15.9 L [place] % (Auto) 10.7 H Eos % (Auto) 2.1 Baso % (Auto) 0.5 Lymph # (Auto) 0.89 L [place] # (Auto) 0.6 Eos # (Auto) 0.1 Baso # (Auto) 0.0 Abs Immat Gran (auto) 0.01 Absolute Neuts (auto) 3.9 Absolute Nucleated RBC 0.0 Nucleated RBC % 0.0 Sodium 126 L Potassium 3.7 Chloride 96 L Carbon Dioxide 30 Anion Gap 0 L BUN 10 Creatinine 0.50 L Estim Creat Clear Calc 60 Estimated GFR > 60 Glucose 90 Calcium 8.7 Total Bilirubin 0.5 AST 24 ALT 13 Alkaline Phosphatase 79 C-Reactive Protein 6.7 H Total Protein 6.0 L Albumin 3.1 L Procalcitonin 0.1 Preliminary micro results at dischar
[2022-10-07 09:33] VITALS: BP 114/60; PULSE 82; RESP 15; O2SAT 98
[2022-10-07] MEDS: amLODIPine BESYLATE 5 MG TABLET 10 MG PO (09:35)
[2022-10-07] MEDS: FOLIC ACID 1 MG TABLET PO ×2 (09:35→16:55)
[2022-10-07] MEDS: ASPIRIN 81 MG ENTERIC TABLET PO (09:35)
[2022-10-07 09:36] VITALS: PULSE 80
[2022-10-07] MEDS: lisinopriL 20 MG TABLET 40 MG PO (09:36)
[2022-10-07] MEDS: METOPROLOL SUCCINATE EXT REL 50 MG TABCR PO (09:36)
[2022-10-07] MEDS: FUROSEMIDE 20 MG TABLET PO (09:38)
--- NOTE | 2022-10-07 12:58 | PC.NURSE ---
aware and okay with pt not having IV
--- NOTE | 2022-10-07 13:29 | PC.NURSE ---
Spoke with son Jason about patient discharge. Jason had some concerns with patient having refused MRI of L ankle. He would like that done before discharge if patient agreeable. Also expressed concerns about facility pt is supposed to DC to. They wanted pt [facility] to either [facility] or [facility]. If pt not accepted into one of those, he was under the impression he and his sister would need to pick a [facility] facility. They have not chosen which they prefer yet and are worried because they have had bad experiences in the past. I spoke with Dr. Kaufman and got MRI reordered around 1206. Patient taken down around 1320 while I was on the phone updating son. I let son know of this. I also called care coordination to see if she would be able to call Jason and answer some more of his questions. I let Jason know I will update with any new information I get and that care coordination would be in contact with him shortly.
[2022-10-07 14:45] VITALS: BP 117/54; PULSE 63; RESP 20; TEMP 36.7; O2SAT 98
--- NOTE | 2022-10-07 15:07 | PCOTNOTE ---
Attempted to see pt for Occupational therapy treatment. Pt would only consider getting out of bed with maxi move only due to pt stating I don't have to do anything. Pt was educated on purpose of therapy including the functional benefits of therapy if performed out of bed and why therapist would like to try having pt participate in functional transfer. Pt continued to refuse to out of bed tasks unless maxi move was used and would not consider any EOB tasks. Pt repeatedly stated that she was waiting for her coffee to arrive as well. [employer] was educated on pt's refusal and to use maxi move to place her in the recliner for all meals. Will continue per POC duration/frequency tomorrow.
[2022-10-07] MEDS: RIVAROXABAN 20 MG TABLET PO (16:55)
== END 2022-10-07 17:45 | DRG 554 ==
LOC: ANHED 10-03 03:39 → ANH2MED 10-03 04:37
PROVIDERS: Admitting Provider Internal Medicine; Emergency Provider Physician Assistant; PCP Emergency Medicine; Visit Provider Student in an Organized Health Care Education/Training Program
DX: M19.071 Primary osteoarthritis, right ankle and foot (principal); M19.072 Primary osteoarthritis, left ankle and foot; M17.0 Bilateral primary osteoarthritis of knee; R26.2 Difficulty in walking, not elsewhere classified; G89.4 Chronic pain syndrome; M06.9 Rheumatoid arthritis, unspecified; M81.0 Age-related osteoporosis without current pathological fracture; M48.00 Spinal stenosis, site unspecified; I27.20 Pulmonary hypertension, unspecified; I48.91 Unspecified atrial fibrillation; Z79.82 Long term (current) use of aspirin
CPT/HCPCS: 36415; 71045; 73564; 73610; 73721; 80053; 81001; 82550; 84145; 84484; 85025; 85610; 85730; 86140; 87040; 93005; 96360; 97110; 97161; 97166; 97530; 97535; 99285; A9270; G0378; J7030